=== PATIENT | female | born 1980 | race Caucasian/White ===

== ENCOUNTER 2019-11-04 19:04 | Emergency (ER) | payer OTHER, SELFPAY ==
--- NOTE | ~2019-11-04 | XR_ITS ---
EXAMINATION: XR chest 2V 11/04/2019 20:10 INDICATION: Chest pain PROCEDURE: 2 view chest COMPARISON: No prior studies for comparison. FINDINGS: The lungs are clear. The cardiomediastinal silhouette is within normal limits. There are no pleural effusions. There is no pneumothorax suspected. IMPRESSION: 1: NO ACUTE CARDIOPULMONARY DISEASE. Reviewed, dictated and finalized at location A.
[2019-11-04 19:16] VITALS: BP 116/71; PULSE 63; RESP 14; TEMP 36.6; O2SAT 100
--- NOTE | 2019-11-04 19:26 | ECG_ITS ---
Measurements Intervals [place] Rate: 60 P: 77 ME: 153 QRS: 72 QRSD: 89 T: 67 QT: 407 QTc: 408 Interpretive Statements SINUS RHYTHM BASELINE ARTIFACT- I, III NORMAL ECG Electronically Signed On 11-04-2019 19:59:47 CDT by Marv Mendez D.O.
[2019-11-04 19:38] LABS: Basophils Absolute Auto 0.1 K/mm3 (0.0-0.1); Eosinophils Absolute Auto 0.1 K/mm3 (0-0.3); Hematocrit 38.9 % (37.0-47.0); Hemoglobin 13.2 g/dL (12.0-15.0); Lymphocytes Absolute Auto 1.92 K/mm3 (0.9-3.2); Lymphocytes Percent Auto 38.1 % (18.3-44.2); Mean Corpuscular HGB Conc 33.9 g/dl (32-36); Mean Corpuscular Hemoglobin 30.4 pg (26-34); Mean Corpuscular Volume 89.6 fl (80-100); Mean Platelet Volume 11.2 fl (7.4-10.4); Monocytes Absolute Auto 0.5 K/mm3 (0.1-0.6); Monocytes Percent Auto 9.1 % (2.6-8.5); Neutrophils Absolute Auto 2.5 K/mm3 (1.3-6.7); Neutrophils Percent Auto 49.8 % (45.5-73.1); Platelet Count Result 166 k/mm3 (150-375); Red Blood Count 4.34 M/mm3 (4.2-5.4); Red Cell Distribution Width 12.3 % (11.5-14.5)
[2019-11-04 19:48] LABS: Prothrombin Time 12.9 Seconds (11.1-14.7)
[2019-11-04 19:49] LABS: Partial Thromboplastin Time 31.1 SECONDS (22.3-36.8)
[2019-11-04 19:50] LABS: Blood Urea Nitrogen 23 mg/dL (7-17); Calcium 9.6 mg/dL (8.4-10.2); Carbon Dioxide 27 mmol/L (22-30); Chloride 103 mmol/L (98-107); Estimated CRCL calculation 94 ml/min; Estimated Glomerular Filt Rate > 60; Glucose 91 mg/dL (65-105); Potassium 3.8 mmol/L (3.4-5.0); Sodium 138 mmol/L (137-145)
[2019-11-04 20:02] LABS: Troponin I < 0.012 ng/mL (0.000-0.034)
[2019-11-04 21:15] VITALS: BP 114/70; PULSE 60; RESP 14; O2SAT 100
--- NOTE | 2019-11-04 21:39 | ED.CHESTPAIN ---
HPI - Chest Pain General Chief Complaint: Chest Pain Stated Complaint: sob, cp Time Seen by Provider: 11/04/19 21:32 History of Present Illness HPI narrative: Patient is a 38-year-old female who presents ER with chest pain. Reports she had worked out today and had been feeling fine. She did some upper body lifting. She then was sitting at home watching her daughter play in the [employer] when she felt a little gaseous and decided to belch. As she belched she developed some central chest pain. Is been intermittent. Occasionally with deep breath. No exertional component. She has no dyspnea/nausea/vomiting/diaphoresis. No coronary history. Has history of anxiety and she became concerned that something more serious was occurring. Has history of bloating issues and GERD. Not currently treated for either. Related Data Allergies Allergy/AdvReac Type Severity Reaction Status Date / Time No Known Allergies Allergy Verified 11/04/19 21:09 Review of Systems Review of Systems: All systems reviewed & are unremarkable except as noted in HPI and below Constitutional: Constitutional: Denies fatigue, Denies fever(s) and Denies weakness ENT: Denies nasal congestion and Denies sore throat PMFSH Past Medical History Medical History (Updated 11/04/19 @ 21:45 by Adis Dahl MD) Anxiety GERD (gastroesophageal reflux disease) Surgical History Surgical History (Updated 11/04/19 @ 21:41 by Adis Dahl MD) No pertinent past surgical history Social History Social History (Updated 11/04/19 @ 21:41 by Adis Dahl MD) Smoking status: Never smoker Exam Narrative: Exam Narrative: GENERAL: Well-appearing, well-nourished, and in no acute distress. HEAD: Normocephalic, atraumatic. CHEST: Clear to auscultation. No respiratory distress. No reproducible chest wall tenderness with palpation however patient to have brief discomfort with 1 deep breath. HEART: Regular rate and rhythm. Normal peripheral pulses. ABDOMEN: Soft, nontender, nondistended. EXTREMITIES: Normal range of motion. No edema. SKIN: Warm, dry, no rash. NEURO: Alert and oriented x3. Course Course Emergency Course: Patient informed of results. Recommend treatment with anti-inflammatories and also some acid reflux medication given her recent bloating. ACS felt to be extremely unlikely. PE also felt to be unlikely given the fact this discomfort occurred with belching and her PERC score 0. Vital Signs Vital signs: Vital Signs Temperature 97.9 F 11/04/19 19:16 Pulse Rate 63 11/04/19 19:16 Respiratory Rate 14 11/04/19 19:16 Blood Pressure 116/71 11/04/19 19:16 Pulse Oximetry 100 11/04/19 19:16 Temperature 97.9 F 11/04/19 19:16 Pulse Rate 60 11/04/19 21:15 Respiratory Rate 14 11/04/19 21:15 Blood Pressure 114/70 11/04/19 21:15 Pulse Oximetry 100 11/04/19 21:15 MDM - Chest Pain Lab Data Result diagrams: 11/04/19 19:31 11/04/19 19:31 Labs: Lab Results 11/04/19 11/04/19 11/04/19 Range/Units 19:31 19:31 19:31 WBC 5.0 (4.5-10.0) K/mm3 RBC 4.34 (4.2-5.4) M/mm3 Hgb 13.2 (12.0-15.0) g/dL Hct 38.9 (37.0-47.0) % MCV 89.6 (80-100) fl MCH 30.4 (26-34) pg MCHC 33.9 (32-36) g/dl RDW 12.3 (11.5-14.5) % Plt Count 166 (150-375) k/mm3 MPV 11.2 H (7.4-10.4) fl Immature Gran % (Auto) 0.0 (0-0.5) % Neut % (Auto) 49.8 (45.5-73.1) % Lymph % (Auto) 38.1 (18.3-44.2) % [place] % (Auto) 9.1 H (2.6-8.5) % Eos % (Auto) 2.0 (0-4.4) % Baso % (Auto) 1.0 (0.2-1.2) % Lymph # (Auto) 1.92 (0.9-3.2) K/mm3 [place] # (Auto) 0.5 (0.1-0.6) K/mm3 Eos # (Auto) 0.1 (0-0.3) K/mm3 Baso # (Auto) 0.1 (0.0-0.1) K/mm3 Abs Immat Gran (auto) 0.00 (0.00-0.031) K/mm3 Absolute Neuts (auto) 2.5 (1.3-6.7) K/mm3 Absolute Nucleated RBC 0.0 (0.0-0.012) K/mm3 Nucleated RBC % 0.0 (0.0-0.2) % PT 12.9 (11.1-
[2019-11-04 22:15] VITALS: BP 118/70; PULSE 62; RESP 14; O2SAT 100
== END 2019-11-04 22:15 | disposition home or self-care (01) ==
PROVIDERS: Emergency Medicine; Emergency Provider Emergency Medicine; PCP Internal Medicine
DX: R07.89 Other chest pain (principal); R14.0 Abdominal distension (gaseous)
CPT/HCPCS: 36415; 71046; 80048; 84484; 85025; 85610; 85730; 93005; 99284

== ENCOUNTER → 2022-03-26 13:35 | Outpatient (CLI) | payer BC, SELFPAY ==
--- NOTE | ~2022-03-26 | XR_ITS ---
EXAMINATION: XR chest 2V 03/26/2022 13:51 INDICATION: Cough PROCEDURE: 2 view chest COMPARISON: 11/04/2019 FINDINGS: The lungs are clear. The cardiomediastinal silhouette is within normal limits. There are no pleural effusions. There is no pneumothorax suspected. IMPRESSION: 1: NO ACUTE CARDIOPULMONARY DISEASE. Reviewed, dictated and finalized at location A. 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
== END ==
PROVIDERS: PCP Internal Medicine; Visit Provider Internal Medicine
DX: R05.9 Cough, unspecified (principal)
CPT/HCPCS: 71046

== ENCOUNTER 2023-04-27 18:29 | Emergency (ER) | payer BC, SELFPAY ==
--- NOTE | ~2023-04-27 | XR_ITS ---
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 RESULT: Lines, tubes, and devices: None. Lungs and pleura: Clear. Cardiomediastinal silhouette: Stable. Other: No acute osseous or upper abdominal finding. IMPRESSION: No acute cardiopulmonary process. Reviewed, dictated and finalized at location K. HNUT BATTER MIXER
--- NOTE | 2023-04-27 18:31 | ECG_ITS ---
Measurements Intervals [place] Rate: 77 P: 79 CT: 136 QRS: 71 QRSD: 90 T: 76 QT: 376 QTc: 427 Interpretive Statements SINUS RHYTHM BASELINE ARTIFACT- I, II, AVR NORMAL ECG COMPARED TO ECG 11/04/2019 19:26:26 NO SIGNIFICANT CHANGES Electronically Signed On 04-28-2023 8:08:07 RECEIVER by Marv Mendez D.O.
[2023-04-27 18:37] VITALS: BP 118/69; PULSE 77; RESP 18; TEMP 36.5; O2SAT 100
[2023-04-27 19:29] LABS: Basophils Absolute Auto 0.1 K/mm3 (0.0-0.1); Basophils Percent Auto 0.9 % (0.2-1.2); Eosinophils Absolute Auto 0.2 K/mm3 (0-0.3); Hematocrit 37.9 % (37.0-47.0); Hemoglobin 12.1 g/dL (12.0-15.0); Immature Granulocyte Absolute 0.01 K/mm3 (0.00-0.031); Immature Granulocyte Percent A 0.2 % (0-0.5); Lymphocytes Absolute Auto 1.76 K/mm3 (0.9-3.2); Lymphocytes Percent Auto 31.8 % (18.3-44.2); Mean Corpuscular HGB Conc 31.9 g/dl (32-36); Mean Corpuscular Hemoglobin 29.3 pg (26-34); Mean Corpuscular Volume 91.8 fl (80-100); Mean Platelet Volume 10.7 fl (7.4-10.4); Monocytes Absolute Auto 0.4 K/mm3 (0.1-0.6); Monocytes Percent Auto 7.2 % (2.6-8.5); Neutrophils Absolute Auto 3.1 K/mm3 (1.3-6.7); Neutrophils Percent Auto 55.9 % (45.5-73.1); Platelet Count Result 172 k/mm3 (150-375); Red Blood Count 4.13 M/mm3 (4.2-5.4); Red Cell Distribution Width 12.5 % (11.5-14.5); White Blood Count 5.5 K/mm3 (4.5-10.0)
[2023-04-27 19:39] LABS: Alanine Aminotransferase 21 U/L (6-35); Albumin Level 4.2 g/dL (3.5-5.1); Alkaline Phosphatase 79 U/L (38-126); Anion Gap 5 mmol/L (8-16); Aspartate Amino Transferase 32 U/L (14-36); Bilirubin,Total 0.3 mg/dL (0.2-1.3); Blood Urea Nitrogen 13 mg/dL (7-17); Calcium 9.1 mg/dL (8.4-10.2); Carbon Dioxide 30 mmol/L (22-30); Chloride 104 mmol/L (98-107); Estimated CRCL calculation 90 ml/min; Estimated Glomerular Filt Rate > 60; Glucose 86 mg/dL (65-110); INR 0.9; Lipase 112 U/L (23-300); Potassium 4.7 mmol/L (3.4-5.0); Sodium 139 mmol/L (137-145)
[2023-04-27 19:51] LABS: Troponin I < 0.012 ng/mL (0.000-0.034)
[2023-04-27] MEDS: FAMOTIDINE 20 MG/2 ML VIAL IV PUSH (20:05)
[2023-04-27] MEDS: KETOROLAC 15 MG/ML VIAL (*BKC) IV PUSH (20:05)
--- NOTE | 2023-04-27 20:32 | ED.GENADULT ---
HPI - General Adult General Chief complaint: Chest Pain Stated complaint: epigastric Time Seen by Provider: 04/27/23 19:07 History of Present Illness HPI narrative: This is a 42-year-old female presenting ED with chief complaint of chest pain. When further questioned bili is epigastric pain. She describes as a pressure, that is nonradiating to 10 intensity and constant goes. She has had this in the past has been evaluated by mortgage underwriter no concern for cardiac etiology. She came in today because in addition to her typical chest pressure she also developed a sharp pain in the right upper quadrant. It comes and goes without primary sent. It is associated with some nausea but no vomiting. No fevers chills difficulty breathing or diarrhea. She notes she is constipated. Patient has significant history of GI discomfort, and small-bowel overgrowth, H pylori infection and constipation. Related Data Home Medications Medication Instructions Recorded Confirmed sertraline 25 mg tablet (Zoloft) 25 mg PO DAILY 07/25/21 06/19/22 Allergies Allergy/AdvReac Type Severity Reaction Status Date / Time amoxicillin Allergy Intermediate rash Verified 08/14/22 14:18 [facility] Past Medical History Medical History Anxiety Depression Deviated septum repaired GERD (gastroesophageal reflux disease) Nausea and vomiting RUQ abdominal pain Thyroid disease Surgical History Surgical History Delivery by section (05/24/14) primary c/s placenta previa History of tonsillectomy No pertinent past surgical history Family History Family History Grandparent Hypertension maternal grandmother Acute myocardial infarction maternal grandfather Social History Social History Smoking status: Never smoker Alcohol intake: current Alcohol use details: socially Substance use: never Substance use type: does not use Living arrangements: other Additional living arrangements comments: Occupation/Education: occupation 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 Head: atraumatic. EYES: EOMI, NOSE: Atraumatic NECK: Trachea midline RESPIRATORY: No increased rate of breathing, CTAB CARDIOVASCULAR: RRR, ABDOMINAL: soft nontender no guarding or rebound, no CVA tenderness MUSCULOSKELETAl: No obvious deformities NEURO: Alert. Moving 4/4 extremities SKIN:: Warm, dry. Normal color PSYCHIATRIC: Normal affect Course Vital Signs Vital signs: Vital Signs Temperature 97.7 F 04/27/23 18:37 Pulse Rate 77 04/27/23 18:37 Respiratory Rate 18 04/27/23 18:37 Blood Pressure 118/69 04/27/23 18:37 Pulse Oximetry 100 04/27/23 18:37 Oxygen Delivery Room Air 04/27/23 18:37 Temperature 97.7 F 04/27/23 18:37 Pulse Rate 68 04/27/23 21:38 Respiratory Rate 16 04/27/23 21:38 Blood Pressure 108/64 04/27/23 21:38 Pulse Oximetry 99 04/27/23 21:38 Oxygen Delivery Room Air 04/27/23 18:37 Medical Decision Making MDM Narrative Medical decision making narrative: -Course: this is a 42-year-old female presenting some epigastric discomfort and right upper quadrant pain. Laboratory studies within normal limits. EKG and chest x-ray unremarkable. Patient improved with Pepcid and Toradol and Maalox. On re-evaluation vital signs are stable, abdominal exam is benign. Patient is comfortable following up with her primary care physician for further management. -DDX includes but is not limited to: Gastritis, GERD, biliary pathology, pleuritis, PE, pneumonia, IBS -Co-morbidities co
[2023-04-27 21:38] VITALS: BP 108/64; PULSE 68; RESP 16; O2SAT 99
[2023-04-27 23:06] LABS: Troponin I < 0.012 ng/mL (0.000-0.034)
== END 2023-04-28 | disposition home or self-care (01) ==
PROVIDERS: Emergency Medicine; Emergency Provider Emergency Medicine; PCP Internal Medicine
DX: R10.13 Epigastric pain (principal); F41.9 Anxiety disorder, unspecified; F32.A Depression, unspecified; K21.9 Gastro-esophageal reflux disease without esophagitis
CPT/HCPCS: 36415; 71046; 80053; 83690; 84484; 85025; 85610; 85730; 93005; 96374; 96375; 99284; J1885

== ENCOUNTER 2023-07-26 02:09 | Emergency (ER) | payer BC, SELFPAY ==
[2023-07-26] VITALS (10 sets, daily range): BP systolic 102–116; BP diastolic 58–73; PULSE 66–85; RESP 11–19; TEMP 36.6–36.8; O2SAT 99–100
--- NOTE | ~2023-07-26 | XR_ITS ---
XR chest 1V portable DATE: 07/26/2023 06:08 INDICATION: Chest pain TECHNIQUE: Portable AP chest on 07/26/2023 0547 hours COMPARISON: 04/27/2023 PA and lateral chest FINDINGS: Normal heart size. No hilar or mediastinal enlargement. No pulmonary infiltrate or consolid ation, pleural effusion or pulmonary vascular congestion or pneumothorax is detected. IMPRESSION: No active cardiopulmonary disease Reviewed, dictated and finalized at location A.
--- NOTE | 2023-07-26 02:12 | ECG_ITS ---
Measurements Intervals [place] Rate: 85 P: 77 AL: 112 QRS: 77 QRSD: 88 T: 70 QT: 358 QTc: 426 Interpretive Statements SINUS RHYTHM WITH SHORT AL INTERVAL BORDERLINE ECG COMPARED TO ECG 04/27/2023 18:34:38 NO SIGNIFICANT CHANGES Electronically Signed On 07-26-2023 7:33:55 CDT by Marv Mendez D.O.
[2023-07-26] MEDS: ASPIRIN 81 MG CHEWABLE TABLET 324 MG PO (02:39)
[2023-07-26 02:40] LABS: Basophils Absolute Auto 0.1 K/mm3 (0.0-0.1); Basophils Percent Auto 0.9 % (0.2-1.2); Eosinophils Absolute Auto 0.3 K/mm3 (0-0.3); Eosinophils Percent Auto 6.4 % (0-4.4); Immature Granulocyte Absolute 0.01 K/mm3 (0.00-0.031); Immature Granulocyte Percent A 0.2 % (0-0.5); Lymphocytes Absolute Auto 2.05 K/mm3 (0.9-3.2); Lymphocytes Percent Auto 38.7 % (18.3-44.2); Mean Corpuscular HGB Conc 32.5 g/dl (32-36); Mean Corpuscular Hemoglobin 29.5 pg (26-34); Mean Corpuscular Volume 90.9 fl (80-100); Mean Platelet Volume 11.1 fl (7.4-10.4); Monocytes Absolute Auto 0.4 K/mm3 (0.1-0.6); Monocytes Percent Auto 7.9 % (2.6-8.5); Neutrophils Absolute Auto 2.4 K/mm3 (1.3-6.7); Neutrophils Percent Auto 45.9 % (45.5-73.1); Platelet Count Result 178 k/mm3 (150-375); Red Cell Distribution Width 12.4 % (11.5-14.5); White Blood Count 5.3 K/mm3 (4.5-10.0)
[2023-07-26 02:51] LABS: INR 0.9; Prothrombin Time 12.5 Seconds (11.1-14.7)
[2023-07-26 02:52] LABS: Partial Thromboplastin Time 31.5 Seconds (22.3-36.8)
[2023-07-26 02:53] LABS: Alanine Aminotransferase 16 U/L (6-35); Albumin Level 4.2 g/dL (3.5-5.1); Alkaline Phosphatase 77 U/L (38-126); Anion Gap 6 mmol/L (4-12); Aspartate Amino Transferase 29 U/L (14-36); Bilirubin,Total 0.4 mg/dL (0.2-1.3); Blood Urea Nitrogen 14 mg/dL (7-17); Calcium 9.2 mg/dL (8.4-10.2); Carbon Dioxide 27 mmol/L (22-30); Chloride 107 mmol/L (98-107); Estimated CRCL calculation 104 ml/min; Estimated Glomerular Filt Rate > 60; Glucose 103 mg/dL (65-110); Lipase 106 U/L (23-300); Potassium 3.7 mmol/L (3.4-5.0); Sodium 140 mmol/L (137-145)
[2023-07-26 03:03] LABS: Troponin I < 0.012 ng/mL (0.000-0.034)
--- NOTE | 2023-07-26 03:25 | ED.CHESTPAIN ---
HPI - Chest Pain General Chief Complaint: Chest Pain <Aliya Ramsay MD - Last Filed: 07/27/23 20:18> Stated Complaint: tingling in hand, high hr, chest pain <Aliya Ramsay MD - Last Filed: 07/27/23 20:18> Time Seen by Provider: 07/26/23 03:25 <Aliya Ramsay MD - Last Filed: 07/27/23 20:18> Source: patient <Aliya Ramsay MD - Last Filed: 07/27/23 20:18> Mode of arrival: ambulatory <Aliya Ramsay MD - Last Filed: 07/27/23 20:18> Limitations: no limitations <Aliya Ramsay MD - Last Filed: 07/27/23 20:18> History of Present Illness HPI narrative: 42-year-old [id number] female who presents with acute onset of tingling in her left hand that awoke her out of sleep at approximately 1:45 a.m. this morning. She notes that she was not lying on her left arm at the time pain was instead on her back. She had chest pain and felt hot and sweaty and thought that this might be panic attack as she has had that before but has never had 1 in the middle the night. She noted that her heart rate based on her watch was in the 150s. The intensity of this episode resolved after she got to the emergency department but has continued to occur since although less intense. 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 Denies any lower extremity edema. No hemoptysis. No recent surgery or trauma. No history of PE or DVT. Not on exogenous hormones. She has not taken anything for pain yet. Pain is described as a pressure. No first-degree relative with a myocardial infarction before age 65 although her maternal grandfather did have a myocardial infarction well in his 40s. She has previously seen a jig builder and had to wear a Holter monitor and was told she occasionally experiences some premature beats. Nonsmoker. No diagnosis of hypertension. She does note that she was previously told she had high cholesterol but then this did resolve on subsequent testing. <Aliya Ramsay MD - Last Filed: 07/27/23 20:18> Related Data Home Medications: Home Medications Medication Instructions Recorded Confirmed No Home Medications 07/23/23 07/23/23 <Aliya Ramsay MD - Last Filed: 07/27/23 20:18> Allergies/Adverse Reactions: Allergies Allergy/AdvReac Type Severity Reaction Status Date / Time amoxicillin Allergy Intermediate rash Verified 07/26/23 02:24 <Aliya Ramsay MD - Last Filed: 07/27/23 20:18> [facility] Past Medical History Medical History: Medical History (Updated 07/27/23 @ 00:03 by Franny Charles) Anxiety Depression Deviated septum repaired GERD (gastroesophageal reflux disease) Nausea and vomiting Right hand dominant RUQ abdominal pain Thyroid disease <Aliya Ramsay MD - Last Filed: 07/27/23 20:18> Surgical History Surgical History: Surgical History Delivery by section (05/24/14) primary c/s placenta previa History of tonsillectomy No pertinent past surgical history <Aliya Ramsay MD - Last Filed: 07/27/23 20:18> Family History Family History: Family History (Updated 07/26/23 @ 07:32 by Aliya Ramsay MD) Grandparent Hypertension maternal grandmother Acute myocardial infarction, Onset Age: 40 maternal grandfather <Aliya Ramsay MD - Last Filed: 07/27/23 20:18> Social History Social History: Social History Smoking status: Never smoker Alcohol intake: current Alcohol use details: socially Substance use: never Substance use type: does not use Living arrangements: other Additional living arrangements comments: Occupation/Education: occupation 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
[2023-07-26] MEDS: ACETAMINOPHEN 500 MG TABLET 1000 MG PO (03:49)
[2023-07-26 04:20] LABS: Influenza A QL RT-PCR Negative (Negative); Influenza B QL RT-PCR Negative (Negative); RSV RNA, RT-PCR Negative (Negative); SARS-CoV-2 RNA PCR Negative (Negative)
--- NOTE | 2023-07-26 05:11 | ECG_ITS ---
Measurements Intervals [place] Rate: 65 P: 62 ID: 145 QRS: 72 QRSD: 86 T: 67 QT: 393 QTc: 411 Interpretive Statements SINUS RHYTHM VENTRICULAR PREMATURE COMPLEX BORDERLINE ECG COMPARED TO ECG 07/26/2023 02:15:16 NO SIGNIFICANT CHANGES Electronically Signed On 07-26-2023 7:37:26 CDT by Marv Mendez D.O.
--- NOTE | 2023-07-26 08:45 | ECG_ITS ---
Measurements Intervals [place] Rate: 72 P: 64 SC: 142 QRS: 73 QRSD: 88 T: 68 QT: 393 QTc: 432 Interpretive Statements SINUS RHYTHM MINIMAL Q WAVES- INFERIOR LEADS BORDERLINE ECG COMPARED TO ECG 07/26/2023 05:20:03 NO SIGNIFICANT CHANGES Electronically Signed On 07-26-2023 16:35:51 CDT by Marv Mendez D.O.
[2023-07-26 08:47] LABS: Troponin I < 0.012 ng/mL (0.000-0.034)
--- NOTE | 2023-07-26 09:36 | ED.CHESTPAIN ---
HPI - Chest Pain General Chief Complaint: Chest Pain Stated Complaint: tingling in hand, high hr, chest pain Time Seen by Provider: 07/26/23 03:25 Source: patient Mode of arrival: ambulatory Limitations: no limitations Related Data Home Medications Medication Instructions Recorded Confirmed No Home Medications 07/23/23 07/23/23 Allergies Allergy/AdvReac Type Severity Reaction Status Date / Time amoxicillin Allergy Intermediate rash Verified 07/26/23 02:24 [facility] Past Medical History Medical History (Updated 07/26/23 @ 09:35 by Nidhi Castle MD) Anxiety Depression Deviated septum repaired GERD (gastroesophageal reflux disease) Nausea and vomiting Right hand dominant RUQ abdominal pain Thyroid disease Surgical History Surgical History Delivery by section (05/24/14) primary c/s placenta previa History of tonsillectomy No pertinent past surgical history Family History Family History (Updated 07/26/23 @ 07:32 by Aliya Ramsay MD) Grandparent Hypertension maternal grandmother Acute myocardial infarction, Onset Age: 40 maternal grandfather Social History Social History Smoking status: Never smoker Alcohol intake: current Alcohol use details: socially Substance use: never Substance use type: does not use Living arrangements: other Additional living arrangements comments: Occupation/Education: occupation 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 Gender identity (if verbalized by the patient): Female Sexual Orientation (if Verbalized by the Patient): Straight or Heterosexual Course Vital Signs Vital signs: Vital Signs Temperature 98.2 F 07/26/23 02:17 Pulse Rate 85 07/26/23 02:17 Respiratory Rate 19 07/26/23 02:17 Blood Pressure 115/72 07/26/23 02:17 Pulse Oximetry 100 07/26/23 02:17 Oxygen Delivery Room Air 07/26/23 02:17 Temperature 98.2 F 07/26/23 02:17 Pulse Rate 69 07/26/23 07:26 Respiratory Rate 14 07/26/23 07:26 Blood Pressure 114/67 07/26/23 07:26 Pulse Oximetry 99 07/26/23 07:26 Oxygen Delivery Room Air 07/26/23 02:46 MDM - Chest Pain Lab Data 07/26/23 02:36 07/26/23 02:36 Labs: Lab Results 07/26/23 07/26/23 07/26/23 Range/Units 02:36 03:37 05:27 WBC 5.3 (4.5-10.0) K/mm3 RBC 4.40 (4.2-5.4) M/mm3 Hgb 13.0 (12.0-15.0) g/dL Hct 40.0 (37.0-47.0) % MCV 90.9 (80-100) fl MCH 29.5 (26-34) pg MCHC 32.5 (32-36) g/dl RDW 12.4 (11.5-14.5) % Plt Count 178 (150-375) k/mm3 MPV 11.1 H (7.4-10.4) fl Immature Gran % (Auto) 0.2 (0-0.5) % Neut % (Auto) 45.9 (45.5-73.1) % Lymph % (Auto) 38.7 (18.3-44.2) % [place] % (Auto) 7.9 (2.6-8.5) % Eos % (Auto) 6.4 H (0-4.4) % Baso % (Auto) 0.9 (0.2-1.2) % Lymph # (Auto) 2.05 (0.9-3.2) K/mm3 [place] # (Auto) 0.4 (0.1-0.6) K/mm3 Eos # (Auto) 0.3 (0-0.3) K/mm3 Baso # (Auto) 0.1 (0.0-0.1) K/mm3 Abs Immat Gran (auto) 0.01 (0.00-0.031) K/mm3 Absolute Neuts (auto) 2.4 (1.3-6.7) K/mm3 Absolute Nucleated RBC 0.000 (0.0-0.012) K/mm3 Nucleated RBC % 0.0 (0.0-0.2) % PT 12.5 (11.1-14.7) Seconds INR 0.9 APTT 31.5 (22.3-36.8) Seconds Sodium 140 (137-145) mmol/L Potassium 3.7 (3.4-5.0) mmol/L Chloride 107 (98-107) mmol/L Carbon Dioxide 27 (22-30) mmol/L Anion Gap 6 L (4-12) mmol/L BUN 14 (7-17) mg/dL Creatinine 0.60 L (0.7-1.0) mg/dL Estim Creat Clear Calc 104 ml/min Estimated GFR > 60 (59 - ) Glucose 103 (65-110) mg/dL Calcium 9.2 (8.4-10.2) mg/dL Total Bilirubin 0.4 (0.2-1.3) mg/dL AST 29 (14-36) U/L ALT 16 (6-35) U/L Alkaline Phosphatase 77 (38-126) U/L Troponin I < 0.012 0.020 D (0.000-0.034) ng/m
== END 2023-07-26 09:42 | disposition home or self-care (01) ==
PROVIDERS: Student in an Organized Health Care Education/Training Program; Emergency Provider Emergency Medicine; PCP Internal Medicine
DX: R07.9 Chest pain, unspecified (principal); Z20.822 Contact with and (suspected) exposure to COVID-19
CPT/HCPCS: 36415; 71045; 80053; 83690; 84484; 85025; 85610; 85730; 87637; 93005; 99284; A9270

== ENCOUNTER 2023-07-30 09:50 | Outpatient (CLI) | payer BC, SELFPAY ==
--- NOTE | ~2023-07-30 | US_ITS ---
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 COMPARISON: None. FINDINGS: The right thyroid lobe measures 4.5 x 1.7 x 1.8 cm. The left thyroid lobe measures 4.1 x 1.4 x 1.5 c m. Thyroid isthmus measures 4 mm in thickness. 7 mm anechoic cystic TI RADS 1 nodule in the right thy roid lobe. There is a second 2-3 mm anechoic cystic TI-RADS 1 nodule with peripheral echogenic focus with prominent posterior comet tailing also in the right thyroid lobe. There is normal echotexture, e chogenicity and vascular flow throughout the thyroid gland. IMPRESSION: 1. A couple subcentimeter likely benign TI RADS 1 cystic right thyroid nodules. Recommend clinical fo llowup with repeat imaging if there are changes on physical exam. Reviewed, dictated and finalized at location A. IMPRESSION: 1. A couple subcentimeter likely benign TI RADS 1 cystic right thyroid nodules. Recommend clinical followup with repeat imaging if there are changes on physic al exam.
== END 2023-07-30 09:51 ==
PROVIDERS: PCP Internal Medicine Endocrinology, Diabetes & Metabolism; Visit Provider Internal Medicine Endocrinology, Diabetes & Metabolism
DX: E04.9 Nontoxic goiter, unspecified (principal)
CPT/HCPCS: 76536

== ENCOUNTER 2024-01-28 10:51 | Outpatient (CLI) | payer BC, SELFPAY ==
--- NOTE | ~2024-01-28 | US_ITS ---
EXAMINATION: US thyroid DATE: 01/28/2024 11:17 INDICATION: Nontoxic goiter. TECHNIQUE: Multiple ultrasound images of the thyroid were obtained. COMPARISON: Ultrasound 07/30/2023 FINDINGS: The right thyroid lobe measures 4.6 x 1.7 x 1.7 cm. The left thyroid lobe measures 4.4 x 1.5 x 1.6 c m. In the left thyroid lobe, there is a 7 mm solid, very hypoechoic, wider than tall nodule with smo oth margin without echogenic foci (TI-RADS TR4). In the right thyroid lobe, there is a 4 mm nodule. IMPRESSION: 1. Small thyroid nodules, likely not clinically significant. No follow-up is needed. Reviewed, dictated and finalized at location A. IMPRESSION: 1. Small thyroid nodules, likely not clinically significant. No follow-up is ne eded.
== END 2024-01-28 10:52 | disposition home or self-care (01) ==
PROVIDERS: PCP Internal Medicine Endocrinology, Diabetes & Metabolism; Visit Provider Internal Medicine Endocrinology, Diabetes & Metabolism
DX: E04.2 Nontoxic multinodular goiter (principal)
CPT/HCPCS: 76536

== ENCOUNTER 2024-02-25 10:42 | Outpatient (CLI) | payer BC, SELFPAY ==
--- NOTE | ~2024-02-25 | MR_ITS ---
EXAMINATION: MR brain/brain stem wo/w con DATE: 02/25/2024 11:37 INDICATION: Irregular menstruation, unspecified. TECHNIQUE: Magnetic resonance imaging (MRI) of the brain and brainstem was performed without and with 15 mL MultiHance intravenous contrast. COMPARISON: None. FINDINGS: The pituitary is normal in size with height of 6 mm and concave superior margin. The infund ibulum is at the midline. There is no intracranial hemorrhage, acute infarction, or abnormal intracra nial mass lesion. The ventricles are normal in size. The paranasal sinuses are clear. The orbits are normal. The mastoid air cells are normal. IMPRESSION: 1. Normal brain. Normal pituitary. Reviewed, dictated and finalized at location B.
== END 2024-02-25 10:43 | disposition home or self-care (01) ==
LOC: MICIMG 10:43
PROVIDERS: PCP Internal Medicine Endocrinology, Diabetes & Metabolism; Visit Provider Internal Medicine Endocrinology, Diabetes & Metabolism
DX: N92.6 Irregular menstruation, unspecified (principal)
CPT/HCPCS: 70553; A9577

== ENCOUNTER 2024-07-21 11:01 | Outpatient (CLI) | payer BC, SELFPAY ==
--- NOTE | ~2024-07-21 | CT_ITS ---
EXAMINATION: CT abdomen wo con DATE: 07/21/2024 11:22 INDICATION: Disorder of adrenal gland with high cortisol level TECHNIQUE: Computed tomography (CT) of the abdomen was performed without intravenous contrast. Automa michelle exposure control and iterative reconstruction technique were employed. The dose-length product wa s 426.30 mGy-cm. COMPARISON: None FINDINGS: Lung bases are clear. Heart size is normal. No pericardial or pleural effusion. Liver, decompressed g allbladder, spleen, pancreas, bilateral adrenal glands and kidneys are normal. Visualized portions of bowels are normal with no obstruction. No pathologically enlarged abdominal lymphadenopathy. Mild arley mbar and lower thoracic spondylosis. IMPRESSION: 1. Unremarkable noncontrast CT of the abdomen with normal adrenal glands. Reviewed, dictated and finalized at location B.
== END 2024-07-21 11:02 | disposition home or self-care (01) ==
LOC: MICIMG 11:02
PROVIDERS: PCP Internal Medicine Endocrinology, Diabetes & Metabolism; Visit Provider Internal Medicine Endocrinology, Diabetes & Metabolism
DX: E27.8 Other specified disorders of adrenal gland (principal)
CPT/HCPCS: 74150

== ENCOUNTER 2024-08-18 09:28 | Outpatient (CLI) | payer BC, SELFPAY ==
--- OUTSIDE RECORDS SUMMARY | 2024-08-18 10:25 | XMS_ITS | Encounter Summary ---
Author Organization [employer] Address 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
--- OUTSIDE RECORDS SUMMARY | 2024-08-18 10:25 | XMS_ITS | Encounter Summary ---
Author Organization [facility] Address [address] [place] [address] Care Team Providers Care Parking Line Painter Name Role Phone Adis Mcdermott MD Primary Care Provider [phone] Encounter Details Date Type Department Care Team (Late st Contact Info) Description 12/28/2002 Outpatient Historical [facility] Internal Medicine [address] [address] Shaheen Stokes MD [address] [place] [address] [phone] Social History Tobacco Use Types Packs/Day Years Used Date Smoking Tobacco: Never Assessed Comments Unknown Sex and Gender Information Value Date Recorded Sex Assigned at Not on file Legal 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 Gender Identity Not on file Sexual Orientation Not on file documented as of this encounter Last Filed Vital Signs Vital Sign Reading Time Taken Comments Blood Pressure 110/70 12/28/2002 3:30 PM CDT Pulse - - Temperature - - Respiratory Rate - - Oxygen Saturation - - Inhaled Oxygen Concentration - - Weight 73 kg (161 lb) 12/28/2002 3:30 PM CDT Height - - Body Mass Index - - documented in this encounter Plan of Treatment Not on file documented as of this encounter Visit Diagnoses Not on filedocumented in this encounter Care Teams Parking Line Painter Relationship Specialty Start Date End Date Adis Mcdermott MD PCP - General Internal Medicine 07/08/14 documented as of this encounter
--- OUTSIDE RECORDS SUMMARY | 2024-08-18 10:25 | XMS_ITS | Encounter Summary ---
Author Organization [email or web address] Address 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
--- OUTSIDE RECORDS SUMMARY | 2024-08-18 10:25 | XMS_ITS | Encounter Summary ---
Author Organization [facility] Address [address] [place] [address] Care Team Providers Care Tool Tender Name Role Phone Adis Mcdermott MD Primary Care Provider [phone] Encounter Details Date Type Department Care Team (Late st Contact Info) Description 02/20/2004 Outpatient Historical [facility] Internal Medicine [address] [address] Shaheen Stokes MD [address] [place] [address] [phone] Social History Tobacco Use Types Packs/Day Years Used Date Smoking Tobacco: Never Assessed Comments Unknown Sex and Gender Information Value Date Recorded Sex Assigned at Not on file 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 Gender Identity Not on file Sexual Orientation Not on file documented as of this encounter Last Filed Vital Signs Vital Sign Reading Time Taken Comments Blood Pressure 110/68 02/20/2004 11:00 AM CDT Pulse - - Temperature 36.5 C (97.7 F) 02/20/2004 11:00 AM CDT Respiratory Rate - - Oxygen Saturation - - Inhaled Oxygen Concentration - - Weight 70.8 kg (156 lb) 02/20/2004 11:00 AM CDT Height - - Body Mass Index - - documented in this encounter Plan of Treatment Not on file documented as of this encounter Visit Diagnoses Not on filedocumented in this encounter Care Teams Tool Tender Relationship Specialty Start Date End Date Adis Mcdermott MD PCP - General Internal Medicine 07/08/14 documented as of this encounter
--- OUTSIDE RECORDS SUMMARY | 2024-08-18 10:25 | XMS_ITS | Encounter Summary ---
Author Organization [facility] Address [address] [place] [address] Care Team Providers Care Clinician Oncology Name Role Phone Adis Mcdermott MD Primary Care Provider [phone] Encounter Details Date Type Department Care Team (Late st Contact Info) Description 02/14/2003 Outpatient Historical [facility] Internal Medicine [address] [address] Shaheen Stokes MD [address] [place] [address] [phone] Social History Tobacco Use Types Packs/Day Years Used Date Smoking Tobacco: Never Assessed Comments Unknown Sex and Gender Information Value Date Recorded Sex Assigned at Not on file Legal 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 Gender Identity Not on file Sexual Orientation Not on file documented as of this encounter Last Filed Vital Signs Vital Sign Reading Time Taken Comments Blood Pressure 110/60 02/14/2003 3:00 PM CDT Pulse - - Temperature - - Respiratory Rate - - Oxygen Saturation - - Inhaled Oxygen Concentration - - Weight 73.5 kg (162 lb) 02/14/2003 3:00 PM CDT Height - - Body Mass Index - - documented in this encounter Plan of Treatment Not on file documented as of this encounter Visit Diagnoses Not on filedocumented in this encounter Care Teams Clinician Oncology Relationship Specialty Start Date End Date Adis Mcdermott MD PCP - General Internal Medicine 07/08/14 documented as of this encounter
--- OUTSIDE RECORDS SUMMARY | 2024-08-18 10:25 | XMS_ITS | Clinical Summary ---
Author Organization [address] Address [address] [place] [id number] Care Team Providers Care Handle Assembler Name Role Phone Adis Mcdermott MD Primary Care Provider + Allergies Active Allergy Reactions Criticality Noted Date Comments Amoxicillin-Pot Clavulanate Rash Medium 08/28/19 23 Medications sertraline (ZOLOFT) 25 mg tablet Take 1 tablet (25 mg total) by mouth daily Active cyanocobalamin (Vitamin B-12) 1,000 mcg/mL injection Active ALPRAZolam (XANAX) 0.25 mg tablet Take 1 tablet (0.25 mg total) by mouth nightly as needed for anxiety Active Active Problems Problem Noted Date Diagnosed Date Anxiety 08/01/2023 Recurrent chest pain 08/01/2023 Lipid screening 08/01/2023 Palpitations 08/01/2023 Surgical History Surgery Date Site/Laterality Comments SECTION 05-24-14 Medical History Medical History Date Comments Chest pain Anxiety Depression Family History Medical History Relation Name Comments Learning disabilities Brother Young Mitral valve prolapse Father Coronary artery disease Maternal Grandfather Brittany Guevara Heart attack Maternal Grandfather Brittany Guevara Heart disease Maternal Grandfather Brittany Guevara Cancer Maternal Grandmother Brittany guevara Hypertension Maternal Grandmother Brittany guevara No Known Problems Mother Alcohol abuse Mother's Brother Delmar Cardiomyopathy Paternal Grandmother Emperatriz Depression Paternal Grandmother Emperatriz Mental illness Paternal Grandmother Emperatriz Relation Name Status Comments Brother Young Father Alive Maternal Grandfather Brittany Guevara Maternal Grandmother Brittany guevara Mother Alive Mother's Brother Delmar Paternal Grandmother Emperatriz Social History Tobacco Use Types Packs/Day Years Used Date Smoking Tobacco: Never Smokeless Tobacco: Never Tobacco Cessation:Counseling Given: Not Answered AUDIT-C Answer Date Recorded Q1: How often do you have a drink containing alc ohol? Monthly or less 04/07/2024 Q2: How many drinks containi ng alcohol do you have on a typical day when you are drinking? 1 or 2 04/07/2024 Q3: How often do you have si x or more drinks on one occasion? Less than monthly 04/07/2024 Comments Unknown Sex and Gender Information Value Date Recorded Sex Assigned at Not on file Legal Sex Female 6:44 AM CDT Gender Identity Female 08/27/2022 6:49 AM CDT Sexual Orientation Straight 08/27/2022 6: 49 AM CDT Obstetrics History Last Filed Vital Signs Vital Sign Reading Time Taken Comments Blood Pressure 113/70 04/07/2024 9:55 AM EDGE MOLDER Pulse 63 04/07/2024 9:55 AM EDGE MOLDER Temperature 37.2 C (99 F) 08/27/2022 5:05 PM CDT Respiratory Rate 18 04/07/2024 9:55 AM EDGE MOLDER Oxygen Saturation 98% 12/19/2023 3:26 PM CDT Inhaled Oxygen Concentration - - Weight 82.2 kg (181 lb 4.8 oz) 04/07/2024 9:55 A M EDGE MOLDER Height 172.7 cm (5' 8 ) 04/07/2024 9:55 AM EDGE MOLDER Body Mass Index 27.57 04/07/2024 9:55 AM EDGE MOLDER Plan of Treatment Health Maintenance Due Date Last Done Comments Cervical Cancer Screening 1979 Depression Screening 1979 Hepatitis C Screening 1979 Varicella Vaccines (1 of 2 - 13+ 2-dose series) 11/27/1992 Regular Well Visit/Exam 18-64 11/27/1997 Pneumococcal vaccine <65 (2 of 2 - PCV) 07/18/2022 07/18/2021, 08/24/2018, 03/04/2006 Breast Cancer Screening-Mammogram 04/30/2024 04/30/2023, 04/30/2023, 01/23/2022 Influenza Vaccine (Season Ended) 2024 05/23/2021, 02/15/2020, 02/15/2019, Additional history exists DTaP/Tdap/Td Vaccine (4 - Td or Tdap) 04/12/2027 04/12/2017, 03/21/2014, 11/10/2008, Additional history exists Hepatitis B Screening Completed 06/06/2022, 022 HPV Vaccines Aged Out No longer eligi ble based on patient's age to complete this topic Insurance [employer] OOS [employer] OOS [employer]ESS OOS Care Teams Handle Assembler Relationship Specialty Start Date End Date Adis Mcdermott MD PCP - General Internal Medicine 08/27/22
--- OUTSIDE RECORDS SUMMARY | 2024-08-18 10:25 | XMS_ITS | CONTINUITY OF CARE DOCUMENT ---
Author Name pascual garner Address Unknown Organization [facility] Address [address] [place] [address] Phone [phone] Care Team Providers Care Caustics Loader Name Role Phone Umang BLAKELY, Summer Unavailable [phone] Summer Heck MD Unavailable [phone] PROBLEMS Condition Status Date Provider Notes Migraines active Naun Faustin Cardiology examination active Naun Faustin Syncope active Summer Heck MD Leg pain, bilateral active Summer Heck MD Chest discomfor--stress test and echo normal from [facility], 05/2024 active Naun Faustin 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 Summer Heck MD Dyspnea on exertion active Naun Faustin HTN borderline active Jose E Fabian MD Sleep apnea severe - unable to tolerate CPAP active Summer Heck MD BACK PAIN;CHRONIC active Jose E Fabian MD Screening completed - Summer Heck MD Vasovagal syncope completed - Summer Heck MD Shortness of breath completed - Jose E Fabian MD Morbid obesity active Summer Heck MD Palpitations active Jose E Fabian MD neg ts h ARTHRITIS active Summer Heck MD Syncope completed - Summer Heck MD Family History of Sudden Cardiac : completed - Jose E Fabian MD Family History of Hypertension: completed - Jose E Fabian MD ENCOUNTERS Date Type Provider Location Encounter Diag nosis - In-person encounter Office Visit Summer Heck MD [facility] Dyspnea on exertionC hest discomfor--stress test and echo normal from [facility], ardiology examinationMigraines - In-person encounter Office Visit Summer Heck MD [facility] Dyspnea on exertion - In-person encounter Office Visit Summer Heck MD [facility] Vasovagal syncopeScreeningSleep apnea severe - unable to tolerate CPAPSyncope - In-person encounter Office Visit Summer Heck MD [facility] - In-person encounter Office Visit Summer Heck MD [facility] - In-person encounter Office Visit Summer Heck MD [facility] Sleep apnea severe - unable to tolerate CPAPDyspnea on exertion - In-person encounter Office Visit Summer Heck MD [facility] Leg pain, bilateral - In-person encounter Office Visit Summer Heck MD [facility] - In-person encounter Office Visit Summer Heck MD [facility] - In-person encounter Office Visit Summer Heck MD [facility] - In-person encounter Office Visit Summer Heck MD [facility] COPD mild obst on pftsChest discomfor--stress test and echo normal from [facility], 05/2024 - In-person encounter Office Visit Jose E Fabian MD [facility] Family History of Hypertension:Family History of Sudden Cardiac :PalpitationsShortness of breathBACK PAIN;CHRONICSleep apnea severe - unable to tolerate CPAPHTN borderline - In-person encounter Office Visit Summer Heck MD [facility] Syncope - In-person encounter Office Visit Summer Heck MD [facility] ARTHRITISMorbid obes ity VITAL SIGNS Date Observation Value Provider Body Mass Index (Ratio) 42.93 kg/m2 Fidel Heck MD blood pressure, diastolic 98 mm[Hg] Li nkLogic blood pressure, systolic 128 mm[Hg] Angi kLogic weight E&M 266 [lb_av] Elly Saunder s pulse rate 82 /min Elly Saunder s oxygen saturation, oximetry 100 % Elly Gregory blood pressure, diastolic 98 mm[Hg] Ti phong Gregory blood pressure, systolic 128 mm[Hg] Tif shelly Gregory blood pressure, cuff size regular Ti phong Gregory height E&M 66 [in_i] Elly Grijalvaer s Body Mass Index (Ratio) 47.45 kg/m2 Fidel Heck MD blood pressure, diastolic 107 mm[Hg] Ri az Roxie blood pressure, systolic 145 mm[Hg] Valencia z Roxie oxygen saturation, oximetry 97 % Mariah Isbell weight E&M 294 [lb_av] Mariah Isbell blood pressure, cuff size large Corine Isbell height E&M 66 [in_i] Mariah Isbell Body Mass Index (Ratio) 48.09 kg/m2 Fidel Heck MD pulse rate 96 /min Wanda Camargo oxygen saturation, oximetry 97 % Wanda Camargo respiratory rate E&M 16 /min Wanda irvin weight E&M 298 [lb_av] Wanda Camargo height E&M 66 [in_i] Wanda Camargo Body Mass Index (Ratio) 47.61 kg/m2 Fidel Heck MD blood pressure, diastolic 115 mm[Hg] Te les Kortney blood pressure, systolic 157 mm[Hg] Ter cristal CamejoSheets weight E&M 295 [lb_av] Arelis Sheets respiratory rate E&M 16 /min Arelis Rosales ranchothu pulse rate 89 /min Arelis Sheets oxygen saturation, oximetry 100 % Arelis Sheets Body Mass Index (Ratio) 46.64 kg/m2 Fidel Heck MD blood pressure, cuff size regular Ke rri Rancho blood pressure, diastolic 82 mm[Hg] Ke rri Rancho blood pressure, systolic 122 mm[Hg] Casa ri Rancho oxygen saturation, oximetry 98 % Brigid Rancho respiratory rate E&M 16 /min Brigid G sivaenefay pulse rate 84 /min Brigid Víctor [facility] weight E&M 289 [lb_av] Brigid Keshae [facility] height E&M 66 [in_i] Brigid Víctor [facility] Body Mass Index (Ratio) 48.03 kg/m2 Fidel Heck MD blood pressure, diastolic 99 mm[Hg] St preethi Zapata blood pressure, systolic 122 mm[Hg] Becki Zapata blood pressure, cuff size large St preethi Zapata weight E&M 297.6 [lb_av] Tori Zapata oxygen saturation, oximetry 98 % oTri Zapata pulse rate 83 /min Tori Zapata respiratory rate E&M 20 /min Tori albarran height E&M 66 [in_i] Tori Zapata Body Mass Index (Ratio) 51.16 kg/m2 Bernard Corbett blood pressure, cuff size regular Av Hooper[place] blood pressure, diastolic 70 mm[Hg] Av fu Robles blood pressure, systolic 110 mm[Hg] Aidee Hooper[place] oxygen saturation, oximetry 98 % Mojgan Hooperby pulse rate 82 /min Mojgan Vinita respiratory rate E&M 18 /min Mojgan [place] weight E&M 317 [lb_av] Mojgan height E&M 66 [in_i] Mojgan Body Mass Index (Ratio) 48.25 kg/m2 Fidel Heck MD blood pressure, diastolic 82 mm[Hg] [facility], systolic 118 mm[Hg] Daniel lawton Fenton oxygen saturation, oximetry 95 % [facility] respiratory rate E&M 16 /min [place] pulse rate 90 /min [facility] 299 [lb_av] [facility] E&M 66 [in_i] [facility] Body Mass Index (Ratio) 45.83 kg/m2 Sophie Fabian MD blood pressure, diastolic 92 mm[Hg] Er jb Mariscal blood pressure, systolic 146 mm[Hg] Amita meredith Mariscal oxygen saturation, oximetry 95 % Sil Mariscal pulse rate 89 /min Sil Kincaid weight E&M 284 [lb_av] Sil El- Sanjiv height E&M 66 [in_i] Sil El- Sanjiv Body Mass Index (Ratio) 41.96 kg/m2 Fidel Heck MD blood pressure, cuff size regular Av Arboleda blood pressure, diastolic 70 mm[Hg] Av Arboleda blood pressure, systolic 116 mm[Hg] Aidee Arboleda oxygen saturation, oximetry 98 % Mojgan Hooper respiratory rate E&M 17 /min Mojgan pulse rate 97 /min Mojgan Hoopre weight E&M 260 [lb_av] Mojgan Hooper height E&M 66 [in_i] Mojgan blood pressure, diastolic 80 mm[Hg] Ca félix Campos blood pressure, systolic 122 mm[Hg] Can adriane Campos Body Mass Index (Ratio) 41.96 kg/m2 Fidel Heck MD blood pressure, diastolic 70 mm[Hg] Av Arboleda blood pressure, systolic 110 mm[Hg] Aidee Arboleda blood pressure, cuff size regular Av Arboleda respiratory rate E&M 17 /min Mojgan Arboleda oxygen saturation, oximetry 98 % Mojgan pulse rate 75 /min Mojgan blood pressure, resting No Betito Arboleda weight E&M 260 [lb_av] Mojgan height E&M 66 [in_i] Mojgan ALLERGIES Allergy Name Onset Date Reaction Criticality Status ALOE VERA High Criticality active RESULTS Date Observation Value Provider Reference Range Interpretation Location 8 pro brain natriuretic peptide 13 pg/mL [facility] 0-130 8 lipoprotein, beta, serum, point, quantitative, calculated 68 mg/dL [facility] 0-99 8 very low density lipoproteins 26 mg/dL [facility] 5-40 8 HDL cholesterol, serum 47 mg/dL [facility] >39 8 triglyceride, serum, random 128 mg/dL [facility] 0-149 8 cholesterol, serum 141 mg/dL [facility] 750-701 3376/12/1 8 alanine aminotransferase (SGPT), serum 14 1/L [facility] 0-32 8 aspartate aminotransferase (SGOT), serum 15 1/L [facility] 0-40 8 alkaline phosphatase, serum 67 1/L [facility] 39-117 8 bilirubin, serum, total <0.2 mg/dL [facility] 0.0-1.2 8 albumin/globulin ratio, serum 1.3 [facility] 1.2-2.2 8 globulin, serum 3.1 [facility] 1.5-4.5 8 albumin, serum 4.0 g/dL [facility] 3.5-5.5 8 protein, total, serum 7.1 g/dL [facility] 6.0-8.5 8 calcium, serum 9.3 mg/dL [facility] 8.7-10.2 8 carbon dioxide, venous blood 24 mmol/L [facility] 20-29 8 chloride, serum 105 mmol/L [facility] 96-106 8 potassium, serum 4.2 mmol/L [facility] 3.5-5.2 8 sodium, serum 146 mmol/L [facility] 134-144 High 8 urea nitrogen/creatinine ratio, serum 20 [facility] 9-23 8 eGFR if 107 mL/min/{1 .73_m2} [facility] >59 8 eGFR if not 92 mL/min/{1 .73_m2} [facility] >59 8 creatinine, serum 0.81 mg/dL [facility] 0.57-1.00 8 urea nitrogen, blood 16 mg/dL [facility] 6-20 8 blood glucose, random 90 mg/dL [facility] 65-99 8 prothrombin time (patient) 10.5 s [facility] 9.1-12.0 8 international normalized ratio (INR) 1.0 [facility] 0.8-1.2 8 basophil count, absolute 0.0 x10E3/uL [facility] 0.0-0.2 8 Eosinophil Absolute Count 0.1 X10E3/UL [facility] 0.0-0.4 8 monocyte count, blood, automated 0.3 X10E3/UL [facility] 0.1-0.9 8 lymphocyte count, blood, automated 2.9 X10E3/UL [facility] 0.7-3.1 8 Absolute Neutrophils 2.9 X10E3/UL [facility] 1.4-7.0 8 basophils as percent of blood leukocytes 0 % [facility] Not Estab. 8 eosinophils as percent of blood leukocytes 2 % [facility] Not Estab. 8 monocytes as percent of blood leukocytes 5 % [facility] Not Estab. 8 lymphocytes as percent of blood leukocytes 47 % [facility] Not Estab. 8 neutrophils as percent of blood leukocytes 46 % [facility] Not Estab. 8 platelet count 183 X10E3/UL [facility] 517-359 6418/12/1 8 red blood cell distribution width 14.0 % [facility] 12.3-15.4 8 mean corpuscular hemoglobin concentration, RBC 32.3 G/DL [facility] 31.5-35.7 8 mean corpuscular hemoglobin, RBC 25.1 pg [facility] 26.6-33.0 Low 8 mean corpuscular volume, RBC 78 fL [facility] 79-97 Low 8 hematocrit, blood 41.5 % [facility] 34.0-46.6 8 hemoglobin, blood 13.4 g/dL [facility] 11.1-15.9 8 erythrocyte (RBC) count 5.34 X10E6/UL [facility] 3.77-5.28 High 8 leukocyte count, blood 6.2 X10E3/UL [facility] 3.4-10.8 HISTORY OF MEDICATION USE Medication Status Instructions Dates Provider Indications Com stephanie Torres 10 mg tablet active Take 1 tablet by mouth once a day Naun Faustin Trulicity 0.75 mg/0.5 mL pen injector completed INJECT 0.75 MG UNDER THE SKIN EVERY WEEK - Naun Alforddinoraines Autoinjector 225 mg/1.5 mL auto-injector active INJECT 225 MG SUBCUTANEOUSLY ONCE MONTHLY Naun Faustin lisinopril 20 mg tablet active TAKE 1 TABLET BY MOUTH TWICE DAILY Naun Faustin sertraline 25 mg tablet active Take 1 tablet by mouth once daily Sue Zepeda verapamil 120 mg tablet extended release completed Take 1 tablet by mouth twice daily - Naun Faustin verapamil 120 mg tablet extended release completed Take 1 tablet by mouth twice a day Take one tablet twice daily - Vielka Damon furosemide 20 mg tablet active TAKE 1 TABLET BY MOUTH ONCE DAILY Naun Faustin verapamil 120 mg tablet extended release completed Take one tablet twice daily - Michele Quinones verapamil 120 mg tablet extended release completed Take one tablet twice daily - Naun Faustin metoprolol succinate 50 mg tablet extended release 24 hr completed Take 1 tablet by mouth every night - Naun Faustin sertraline 25 mg tablet completed Take 1 tablet by mouth once a day - Sue Zepeda Bystolic 20 mg tablet completed Take 1 tablet by mouth once a day replaces Verapamil Take one pill at night - Naun Faustin Bystolic 20 mg tablet completed Take 1 tablet by mouth once a day replaces Verapamil Take one pill at night - Summer Heck MD dihydroergotamine 1 mg/mL solution completed Use once a week - Naun Faustin DICLOFENAC POTASSIUM TABLET ER 100 MG active Take 1 tablet by mouth twice a day Mojgan Arboleda tramadol 50 mg tablet active Take 1 tablet by mouth twice a day Mojgan Arboleda lidocaine 5% ointment active Use as needed Mojgan Arboleda ERGOCALCIFEROL 1.25 MG (33620 UT) CAPS active Take tablet by mouth once a week Mojgan Robles butalbital-acetamin ophen 50-325 mg tablet active Take 1 tablet by mouth as needed Mojganines Arboleda NALOXONE HCL 2 MG/2ML INJECTION SOLUTION PREFILLED SYRINGE completed Use as directed in case of opiod overdose only - Mojgan Arboleda Prescribed by Ibrahima Hagen Senna Plus 8.6-50 mg tablet active Take 1 tablet twice a day as needed Sara Burton RN Prescribed by Ibrahima Hagen AMOXICILLIN-POT CLAVULANATE 875-125 MG ORAL TABLET completed Take one tablet twice daily - Mojgan Arboleda gabapentin 300 mg capsule completed Take 1 capsule three times a day - Naun Faustin Prescribed by Ibrahima Hagen topiramate 100 mg tablet completed Take 1 tablet by mouth twice a day - Naun Faustin Prescribed by Ibrahima Hagen IBUPROFEN 400 MG ORAL TABLET completed Take 1-2 tablets 1-3 times daily for pain for 30 days - Mojgan Arboleda Prescribed by Ibrahima Hagen folic acid 1 mg tablet active Take 1 tablet once a day Sara Burton RN Prescribed by Ibrahima Hagen verapamil 180 mg capsule,ext rel. pellets 24 hr completed Take 2 tablet once a day - Summer Heck MD Prescribed by Ibrahima Hagen AMOXICILLIN 500 MG ORAL CAPSULE completed one tab daily - Sara Burton RN baclofen 20 mg tablet active Take 1 tablet by mouth twice a day Mojgan Arboleda Prescribed by Ibrahima Hagen PERCOCET TABLET completed TID, not on it right now - Mojgan Arboleda METOPROLOL TARTRATE 100 MG ORAL TABLET completed take one tablet tonight with dinner and one tablet tomorrow 1 1/2 hrs prior to test. - Summer Heck MD Pre-procedu re medication NALTREXONE HCL 50 MG ORAL TABLET completed 1/2 tab by mouth daily, can take up to two half pills a day if not effective - Summer Heck MD BUPROPION HCL 100 MG ORAL TABLET completed one tab by mouth daily, can take up to twice a day - Summer Heck MD MONTELUKAST SODIUM 10 MG ORAL TABLET completed take one tablet by mouth once daily - Sil valdes BACLOFEN 20 MG ORAL TABLET completed three times daily - Sil valdes TOPIRAMATE 100 MG ORAL TABLET completed take one tablet by mouth once three times daily - Sil valdes GABAPENTIN 300 MG ORAL CAPSULE completed take one tablet by mouth three times daily - Sil valdes [facility] 25 MG ORAL TABLET completed as needed for sleep - Sil valdes OXYCODONE-ACETAMINO PHEN 10-325 MG ORAL TABLET completed as needed for pain - Sil valdes SOCIAL HISTORY Date Observation Value Provider drug use no Naun Faustin alcohol use yes Naun Faustin chewing tobacco use Current Naun Byrne pilar smoking status Former smoker Naun Esquivel i drug use no Naunfaraz Bonnerzacristal alcohol use yes Naun Faustin chewing tobacco use Current Naun Tripathimaxi quezada smoking status Former smoker Naun Tripathibryan i chewing tobacco use Current Wanda fuchs drug use no Summer Heck MD alcohol use yes Summer Heck MD smoking status Former smoker Summer Heck MD social history reviewed E&M revi ewed - no changes required Naun Faustin social history E&M S moking History: Beata goldstein currently smokes every day. Nuan Faustin caffeine use, averag e drinks per day 0 /d Arelis Sheets drug use no [facility] alcohol use yes [facility] smoking status Current every day smoker T amita Sheets social history reviewed E&M revi ewed - no changes required Naun Faustin smoking status Never smoker Brigid Quesadafaina elias social history reviewed E&M revi ewed - no changes required Naun Faustin social history E&M S moking History: Beata goldstein has never smoked. Summer Heck MD social history reviewed E&M revi ewed - no changes required Summer Heck MD smoking status Never smoker Tori Benny social history reviewed E&M revi ewed - no changes required Naun Faustin social history reviewed E&M revi ewed - no changes required Summer Heck MD social history E&M S moking History: Beata goldstein has never smoked. Summer Heck MD social history reviewed E&M revi ewed - no changes required Summer Heck MD smoking status Never smoker Mojgan Arboleda social history E&M S moking History: Beata goldstein has never smoked. Summer Heck MD social history reviewed E&M revi ewed - no changes required Summer Heck MD smoking status Never smoker Antonino german number of grandchildren Summer Strong social history E&M S moking History: Beata goldstein has never smoked. Jose E Fabian MD smoking status Never smoker Sil Wright social history reviewed E&M revi ewed - no changes required Sil Mariscal social history E&M S moking History: Beata goldstein has never smoked. Summer Heck MD smoking status Never smoker Mojgan Arboleda social history reviewed E&M revi ewed - no changes required Mojgan Arboleda smoking status Never smoker Argenis gimenez social history reviewed E&M revi ewed - no changes required Summer Heck MD smoking status Never smoker Mojgan Arboleda FUNCTIONAL STATUS Date Observation Value Provider periodic limb movement index absent (0) Argenis Campos FAMILY HISTORY Family Member Condition Mother [place] female <65 Maternal Grandmother Family History of S udden Cardiac : Mother Family History of Hy pertension: INSURANCE PROVIDERS Payer name Policy type / Coverage type [place] red green party ID UHC MEDICAID [id number] insurance [id number] ADVANCE DIRECTIVES Name Date DISCUSSED - NO DECISION MADE TREATMENT PLAN Date Name Performer [id number],S, Naun Ahmedza i [id number],S, Naun Ahmedza i [id number],S, Naun Ahmedza i [id number],S, Naun Ahmedza i [id number],S, Naun Ahmedza i [id number],B, Naun Ahmedza i [id number],S, Naun Ahmedza i [id number],S, Naun Ahmedza i [id number],S, Naun Ahmedza i [id number],S, Naun Ahmedza i [id number],S, Naun Ahmedza i [id number],S, Summer Heck MD [id number],W, Summer Heck MD [id number],S, Summer Heck MD [id number],W, Summer Heck MD [id number],S, Summer Heck MD Cardiology:This visi t has been a part of the consistent, comprehensive, and ongoing management of the chronic medical condition(s) listed above for the patient. BP today: 128/98 P rior BP: 145/107 (08/14/2023) Prior 10 Yr Risk Heart Disease: Not enough information (01/17/2017) Labs Reviewed: C reat: 0.81 (04/14/2018) C hol: 141 (04/14/2018) HDL: 47 (04/14/2018) LDL: 68 (04/14/2018) T (04/14/2018) Her updated medication list for this problem includes: Lisinopril 20 Mg Tablet (Lisinopril) ..... Take 1 tablet by mouth twice daily Furosemide 20 Mg Tablet (Furosemide) ..... Take 1 tablet by mouth once daily Summer Heck MD Cardiology: H er updated medication list for this problem includes: Lisinopril 20 Mg Tablet (Lisinopril) ..... Take 1 tablet by mouth twice daily Summer Heck MD Cardiology Summer Heck MD Cardiology Summer Heck MD Cardiology Summer Heck MD Cardiology: B P today: 145/107 P rior BP: 157/115 (05/23/2022) Prior 10 Yr Risk Heart Disease: Not enough information (01/17/2017) Labs Reviewed: C reat: 0.81 (04/14/2018) Chol: 141 (04/14/2018) HDL: 47 (04/14/2018) LDL: 68 (04/14/2018) T (04/14/2018) Naun Faustin Cardiology Naun Ahmedzai Cardiology Naun Ahmedzai Cardiology Naun Ahmedzai Cardiology Naun Ahmedzai Cardiology Naun Ahmedzai Cardiology Summer Heck MD Cardiology Summer Heck MD Cardiology Summer Heck MD Cardiology Summer Heck MD Cardiology Summer Heck MD Cardiology Naun Ahmedzai Cardiology Naun Ahmedzai Cardiology Naun Ahmedzai Cardiology Naun Ahmedzai Cardiology Naun Ahmedzai Cardiology Naun Ahmedzai Cardiology Naun Ahmedzai Cardiology Naun Ahmedzai Cardiology Naun Ahmedzai Cardiology Naun Ahmedzai Cardiology Naun Ahmedzai Cardiology Summer Heck MD Cardiology Summer Heck MD Cardiology Summer Heck MD Cardiology Summer Heck MD Cardiology Summer Heck MD Cardiology Summer Heck MD Cardiology Summer Heck MD Cardiology Summer Heck MD Cardiology Summer Heck MD Cardiology Summer Heck MD Cardiology Summer Heck MD Cardiology Summer Heck MD Cardiology Summer Heck MD Cardiology Summer Heck MD Cardiology Summer Heck MD Cardiology Summer Heck MD Cardiology Summer Heck MD Cardiology Jose E Fabian MD Cardiology Jose E Fabian MD Cardiology Jose E Fabian MD Cardiology Jose E Fabian MD Cardiology:failed sleep test can t wear mask Jose E Fabian MD Cardiology:will try srugery will try diet pills Jose E Fabian MD Cardiology:neg zio a nd stress adn echo adn a2c and chol adn iorn and rpr, neg vd Jose E Fabian MD Cardiology:neg zio Jose E Fabian MD Cardiology Summer Heck MD Cardiology Summer Heck MD Cardiology Summer Heck MD Cardiology Summer Heck MD Cardiology Summer Heck MD Cardiology Summer Heck MD Cardiology Summer Heck MD Cardiology Summer Heck MD Cardiology Summer Heck MD Date Name Venous Doppler Bilat eral LE - Reflux Carotid Duplex Bilat eral Monitor - Telemetry (Mobile Cardiac) Complete Echo Vitamin D, 25-Hydrox y CBC (H/H, RBC, INDIC ES, WBC, PLT) Microalb/Creatinine Urine, Random HEMOGLOBIN A1c TSH, free T4, total T3 LIPID PANEL PROBNP, N TERMINAL COMPREHENSIVE METABO LIC PANEL, W/EGFR Complete Echo Stress Regadenoson Test Mobile Cardiac Tele COMPREHENSIVE METABO LIC PANEL, W/EGFR PROBNP, N TERMINAL X-Ray, Chest - Routi ne PROTHROMBIN TIME WIT H INR LIPID PANEL CBC (INCLUDES DIFF/P LT) CT Angio Coronaries DLCO - 52315 FRC - 24948 FVC - 40426 HISTORY OF PROCEDURES Procedure Date Procedure Name Provider Procedure Notes S tatus Complex e/m visit add on Summer Heck MD completed EKG Summer Heck MD completed EKG Summer Heck MD completed Stress EKG Summer Heck MD completed Regadenoson, 4 units Summer Heck MD completed Cardiolite, 2 units Summer Heck MD completed SPECT Images Summer Heck MD complet ed FVC / MVV - 02870 Jose E Fabian MD c ompleted FRC - 80306 Jose E Fabian MD complet ed SpO2 w/o 6min walk/titration Jose E Fabian MD completed DLCO - 84043 Jose E Fabian MD comple michelle Event Monitor Summer Heck MD comple michelle EKG Jose E Fabian MD complete d SNOMED-CT: 208700903 [id number] Current Medications Documented Summer Heck MD completed Stress EKG Adrianna Hughes MD complet ed ZIO Event Hookup Summer Heck MD com pleted SNOMED-CT: 50022618 Physical Exam, Performed: Pulse Exam of Foot Summer Heck MD completed EKG Summer Heck MD completed SNOMED-CT: [id number] [id number] Current Medications Documented Summer Heck MD completed
--- OUTSIDE RECORDS SUMMARY | 2024-08-18 10:25 | XMS_ITS | Encounter Summary ---
Author Organization [employer] Address 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
--- OUTSIDE RECORDS SUMMARY | 2024-08-18 10:25 | XMS_ITS | Encounter Summary ---
Author Organization [facility] Address [address] [place] [address] Care Team Providers Care Preventive Medicine Specialist Name Role Phone Adis Mcdermott MD Primary Care Provider [phone] Encounter Details Date Type Department Care Team (Late st Contact Info) Description 01/10/2003 Outpatient Historical [facility] Internal Medicine [address] [address] Shaheen Stokes MD [address] [place] [address] [phone] Social History Tobacco Use Types Packs/Day Years Used Date Smoking Tobacco: Never Assessed Comments Unknown Sex and Gender Information Value Date Recorded Sex Assigned at Not on file Legal Sex Female 4:17 AM CATERING DIRECTOR Gender Identity Not on file Sexual Orientation Not on file documented as of this encounter Last Filed Vital Signs Vital Sign Reading Time Taken Comments Blood Pressure 120/60 01/10/2003 4:45 PM CDT Pulse - - Temperature - - Respiratory Rate - - Oxygen Saturation - - Inhaled Oxygen Concentration - - Weight 74.4 kg (164 lb) 01/10/2003 4:45 PM CDT Height - - Body Mass Index - - documented in this encounter Plan of Treatment Not on file documented as of this encounter Visit Diagnoses Not on filedocumented in this encounter Care Teams Preventive Medicine Specialist Relationship Specialty Start Date End Date Adis Mcdermott MD PCP - General Internal Medicine 07/08/14 documented as of this encounter
--- OUTSIDE RECORDS SUMMARY | 2024-08-18 10:25 | XMS_ITS | Encounter Summary ---
Author Organization [facility] Address [address] [place] [address] Care Team Providers Care Sand Screener Name Role Phone Adis Mcdermott MD Primary Care Provider [phone] Encounter Details Date Type Department Care Team (Late st Contact Info) Description 03/18/2003 Outpatient Historical [facility] Internal Medicine [address] [address] Shaheen Stokes MD [address] [place] [address] [phone] Social History Tobacco Use Types Packs/Day Years Used Date Smoking Tobacco: Never Assessed Comments Unknown Sex and Gender Information Value Date Recorded Sex Assigned at Not on file Legal Sex Female 4:17 AM REAL ESTATE MARKETING COORDINATOR Gender Identity Not on file Sexual Orientation Not on file documented as of this encounter Last Filed Vital Signs Vital Sign Reading Time Taken Comments Blood Pressure 110/74 03/18/2003 11:00 AM REAL ESTATE MARKETING COORDINATOR Pulse - - Temperature - - Respiratory Rate - - Oxygen Saturation - - Inhaled Oxygen Concentration - - Weight 70.8 kg (156 lb) 03/18/2003 11:00 AM REAL ESTATE MARKETING COORDINATOR Height - - Body Mass Index - - documented in this encounter Plan of Treatment Not on file documented as of this encounter Visit Diagnoses Not on filedocumented in this encounter Care Teams Sand Screener Relationship Specialty Start Date End Date Adis Mcdermott MD PCP - General Internal Medicine 07/08/14 documented as of this encounter
--- OUTSIDE RECORDS SUMMARY | 2024-08-18 10:25 | XMS_ITS | Referral Summary ---
Author Organization [address] Address [address] [place] [address] Care Team Providers Care Finishing Area Supervisor Name Role Phone Adis Mcdermott MD Primary [...] pain 08/01/2023 Lipid screening 08/01/2023 Palpitations 08/01/2023 Social History Tobacco Use Types Packs/Day Years [...] Orientation Straight 08/27/2022 6: 49 AM CDT Last Filed Vital Signs Vital Sign Reading Time Taken Comments Blood Pressure 113/70 04/07/2024 9:55 AM FOOD SERVICE KITCHEN SUPERVISOR Pulse 63 04/07/2024 9:55 AM FOOD SERVICE KITCHEN SUPERVISOR Temperature 37.2 C (99 F) 08/27/2022 5:05 PM CDT Respiratory Rate 18 04/07/2024 9:55 AM FOOD SERVICE KITCHEN SUPERVISOR Oxygen Saturation 98% 12/19/2023 3:26 PM CDT Inhaled Oxygen Concentration - - Weight 82.2 kg (181 lb 4.8 oz) 04/07/2024 9:55 A M FOOD SERVICE KITCHEN SUPERVISOR Height 172.7 cm (5' 8 ) 04/07/2024 9:55 AM FOOD SERVICE KITCHEN SUPERVISOR Body Mass Index 27.57 04/07/2024 9:55 AM FOOD SERVICE KITCHEN SUPERVISOR Plan of Treatment Not on file Insurance Spinal Simplicity OOS Sp[employer] OOS Spinal Simplicity OOS [facility] Address: [place] [address] Care Teams Finishing Area Supervisor Relationship Specialty Start Date End Date Adis Mcdermott MD PCP - General Internal Medicine 08/27/22
--- OUTSIDE RECORDS SUMMARY | 2024-08-18 10:25 | XMS_ITS | Data Portability ---
Author Organization [facility], Main Office Address [address] [facility] [address] [place] [address] Assessment No assessment recorded. Plan of Treatment Reminders Order Date Submit Date Provider Last Modified By Organization Details Last Modified Time Details Appointments None record ed. Lab None record ed. Referral None record ed. Procedures biopsy , skin (PROC) 024 11/12/19 24 [email or web address] Not available 10:15:06 Surgeries None record ed. Imaging None record ed. Medication Orders None record ed. Patient TargetsNo targets recorded. Patient Instructions Encounter Date Encounter Id Patient Instructions Last Modified By Organization Details Last Modified Time 11/12/2023 [id number] Informed consent . Betadine prep. 1% lidocaine with epinephrine. Shave biopsy from: left post upper LEG AlCL3 and cautery hemostasis. Aquaphor, bandage and wound care given. Will call pt with path. [email or web address] Not available 11/12/2023 10:14:36 Reason for Referral None Reported. Problems Name Problem SNOMED Code Status Onset Date Resolution Date Notes Provider Name and Address Organization Details Recorded Time Melanocytic nevus of trunk 146445781 Active 2022 Alex Carrasquillo MD [address] [facility] [address], [place], [address], [facility] 3 15:32:41 Seborrheic keratosis 984946016 Active 2022 Alex Carrasquillo MD [address] [facility] [address], [place], [address], [facility] 3 15:32:44 Benign neoplasm of skin 27109232 Active 2023 Alex Carrasquillo MD [address] [facility] [address], [place], [address], [facility] 4 11:49:17 Neoplasm of uncertain behavior of skin 55871156 Active 2023 Alex Carrasquillo MD [address] [facility] [address], [place], [address], [facility] 4 10:13:16 Milia 751527269 Active 2024 Alex Carrasquillo MD [address] [facility] [address], [place], [address], [facility] 5 11:56:02 Plane wart 654827920 Active 2024 Alex Carrasquillo MD [address] [facility] [address], [place], [address], [facility] 5 11:56:50 Benign neoplasm of skin of left upper limb 4509497938057 101 Active 2024 Alex Carrasquillo MD [address] [facility] [address], [place], [address], [facility] 5 10:59:59 Nummular eczema 54392655 Active 2020 Alex Carrasquillo MD [address] [facility] [address], [place], [address], [facility] 1 15:59:56 Nummular eczema 11971582 Active 2020 Alex Carrasquillo MD [address] [facility] [address], [place], [address], [facility] 1 16:00:00 Actinic keratosis 013734623 Active 2020 Alex Carrasquillo MD [address] [facility] [address], [place], [address], [facility] 1 09:24:35 Pityriasis versicolor 59200677 Active 2020 Alex Carrasquillo MD [address] [facility] [address], [place], [address], [facility] 09:24:39 Chronic effect of ultraviolet radiation on normal skin 281914381 Active 2020 Alex Carrasquillo MD [address] [facility] [address], [place], [address], [facility] 09:24:41 Problem Notes None recorded. Medical Equipment None Reported. Allergies No known drug allergies Medications Name Sig Start Date Stop Date Status Note LastModified by Organization Details LastModified Time BD Luer-Joan Syringe 3 mL 23 x 1 INJECT TESTOSTERON E IN THE MUSCLE WEEKLY 90 active Not Available Not Available No t Available azithromycin 250 mg tablet active Not Available Not Available Not Available clarithromyc in 500 mg tablet TAKE 1 TABLET BY MOUTH TWICE DAILY FOR 10 DAYS active Not Available Not Available No t Available tretinoin 0.025 % topical cream APPLY TO THE face BY TOPICAL ROUTE ONCE DAILY AT BEDTIME active Not Available Not Available No t Available metronidazol e 0.75 % (37.5 mg/5 gram) vaginal gel INSERT 1 APPLICATORF UL VAGINALLY 1 TIME FOR 5 DAYS NEEDED FOR VAGINAL IRRITATION active Not Available Not Available N ot Available metronidazol e 500 mg tablet TAKE 1 TABLET BY MOUTH THREE TIMES DAILY FOR 10 DAYS active Not Available Not Available Not Available insulin syringe U-100 with needle 1 mL 29 gauge x 7/16 USE TO INJECT CYANOCOBALA MIN UNDER THE SKIN ONCE WEEKLY. active Not Available Not Available No t Available liothyronine 5 mcg tablet TAKE 1 TABLET BY MOUTH TWICE DAILY active Not Available Not Available No t Available triamcinolon e acetonide 0.1 % topical cream APPLY A THIN LAYER TO THE left hip rash BY TOPICAL ROUTE 2 TIMES PER day for 4 weeks. NEVER TO FACE. 2019 active Not Available Not Available Not Avai lable alprazolam 0.5 mg tablet TAKE 1 TABLET BY MOUTH TWICE DAILY NEEDED FOR PANIC active Not Available Not Available No t Available dexamethason e 1 mg tablet TAKE 1 TABLET BY MOUTH AT 10 PM THE NIGHT BEFORE CORTISOL active Not Available Not Available No t Available cyanocobalam in (vit B-12) 1,000 mcg/mL injection solution active Not Available Not Available Not Available naproxen sodium 550 mg tablet TAKE 1 TABLET BY MOUTH EVERY 12 HOURS NEEDED active Not Available Not Available No t Available sertraline 25 mg tablet TAKE 1 TABLET BY MOUTH DAILY active Not Available Not Available Not Available omeprazole 20 mg capsule,edilson yed release TAKE 1 CAPSULE BY MOUTH TWICE DAILY FOR 10 DAYS active Not Available Not Available No t Available testosterone cypionate 200 mg/mL intramuscula r oil INJECT 0.1ML INTRAMUSCUL AR WEEKLY DISCARD REMAINDER active Not Available Not Available No t Available sertraline 50 mg tablet active Not Available Not Available Not Available doxycycline hyclate 100 mg tablet TAKE 1 TABLET BY MOUTH TWICE DAILY FOR 10 DAYS active Not Available Not Available No t Available TRUEplus Insulin 1 mL 29 gauge x 1/2 syringe USE TO INJECT CYANOCOBALA MIN UNDER THE SKIN ONCE WEEKLY. active Not Available Not Available No t Available ID NOW COVID-19 Test Kit TEST DIRECTED TODAY active Not Available Not Available No t Available Fluarix Quad (PF) 60 mcg (15 mcg x 4)/0.5 mL IM syringe ADM 0.5ML IM UTD active Not Available Not Available No t Available Vitals None Recorded Social History None recorded. Functional Status None recorded. Mental Status None recorded. Family History Nothing Reported. Medical History No medical history recorded. Gynecological HistoryNo gynecological history recorded. Obstetrics History GPAL:G 0 P 0 0 0 0 Past Encounters Encounter ID Performer Location Encounter Start Date Encounter Closed Date Diagnosis/Indication Diagnosis SNOMED-CT Code Diagnosis ICD10 Code Diagnosis Note [id number] Alex Carrasquillo MD Main Office [address] [facility] [address] [place] [id number] 11/12/2023 09:53:19 11/12/2023 10:15:59 Neoplasm of uncertain behavior of skin 84254251 D48.5 Health Concerns Section Related Observation LastModified by Organization Detai ls LastModified Time None Recorded Concern Status LastModified by Organization Details LastModified Time None Recorded Advance Directives Directive None Recorded Payers Encounter Date Sequence Insurance Name Policy Number Policy Frost Covered Member ID Frost Member ID Guarantor Name 11/12/2023 1 [place] [id number] Judy Isbell [id number] Judy Isbell Notes Date Note Type Note Provider Name and Address Organization Details Recorded Time 11/12/2023 text/html Bx of l post LEG pigmented lesion Alex Carrasquillo MD [address], [place], [address], [facility] 11/12/2023 10:15:27 OBGyn Episode No OBEpisode recorded.
--- OUTSIDE RECORDS SUMMARY | 2024-08-18 10:25 | XMS_ITS | Encounter Summary ---
Author Organization [facility] Address [address] [place] [address] Care Team Providers Care Platform Software Engineer Name Role Phone Adis Mcdermott MD Primary Care Provider [phone] Encounter Details Date Type Department Care Team (Late st Contact Info) Description 04/07/2003 Outpatient Historical [facility] Adis Blake MD [address] [place] [address] REFLUX ESOPHAGITIS (Primary Dx) Social History Tobacco Use Types Packs/Day Years Used Date Smoking Tobacco: Never Assessed Comments Unknown Sex and Gender Information Value Date Recorded Sex Assigned at Not on file Legal Sex Female 4:17 AM BULB WEEDER Gender Identity Not on file Sexual Orientation Not on file documented as of this encounter Plan of Treatment Not on file documented as of this encounter Visit Diagnoses Diagnosis Reflux esophagitis- Primary documented in this encounter Care Teams Platform Software Engineer Relationship Specialty Start Date End Date Adis Mcdermott MD PCP - General Internal Medicine 07/08/14 documented as of this encounter
--- OUTSIDE RECORDS SUMMARY | 2024-08-18 10:25 | XMS_ITS | Encounter Summary ---
Author Organization [facility] Address [address] [place] [address] Care Team Providers Care Metal Control Worker Name Role Phone Adis Mcdermott MD Primary Care Provider [phone] Encounter Details Date Type Department Care Team (Late st Contact Info) Description 05/05/2003 Outpatient Historical [facility] Internal Medicine [address] [address] Shaheen Stokes MD [address] [place] [phone] Social History Tobacco Use Types Packs/Day Years Used Date Smoking Tobacco: Never Assessed Comments Unknown Sex and Gender Information Value Date Recorded Sex Assigned at Not on file Legal Sex Female 4:17 AM STATION ATTENDANT Gender Identity Not on file Sexual Orientation Not on file documented as of this encounter Last Filed Vital Signs Vital Sign Reading Time Taken Comments Blood Pressure 120/70 05/05/2003 4:00 PM STATION ATTENDANT Pulse - - Temperature 37.3 C (99.1 F) 05/05/2003 4:00 PM STATION ATTENDANT Respiratory Rate - - Oxygen Saturation - - Inhaled Oxygen Concentration - - Weight 75.8 kg (167 lb) 05/05/2003 4:00 PM STATION ATTENDANT Height - - Body Mass Index - - documented in this encounter Plan of Treatment Not on file documented as of this encounter Visit Diagnoses Not on filedocumented in this encounter Care Teams Metal Control Worker Relationship Specialty Start Date End Date Adis Mcdermott MD PCP - General Internal Medicine 07/08/14 documented as of this encounter
--- OUTSIDE RECORDS SUMMARY | 2024-08-18 10:25 | XMS_ITS | Encounter Summary ---
Author Organization [facility] Address [address] [place] [address] Care Team Providers Care Director Of Retail Analytics Name Role Phone Adis Mcdermott MD Primary Care Provider Encounter Details Date Type Department Care Team (Late st Contact Info) Description 09/13/2003 Outpatient Historical [facility] Internal Medicine [address] [address] Shaheen Stokes MD [address] [place] [address] [phone] Social History Tobacco Use Types Packs/Day Years Used Date Smoking Tobacco: Never Assessed Comments Unknown Sex and Gender Information Value Date Recorded Sex Assigned at Not on file Legal Sex Female 4:17 AM OFFICE CLERK ASSISTANT Gender Identity Not on file Sexual Orientation Not on file documented as of this encounter Last Filed Vital Signs Vital Sign Reading Time Taken Comments Blood Pressure 110/72 09/13/2003 4:15 PM CDT Pulse - - Temperature - - Respiratory Rate - - Oxygen Saturation - - Inhaled Oxygen Concentration - - Weight 73.5 kg (162 lb) 09/13/2003 4:15 PM CDT Height - - Body Mass Index - - documented in this encounter Plan of Treatment Not on file documented as of this encounter Visit Diagnoses Not on filedocumented in this encounter Care Teams Director Of Retail Analytics Relationship Specialty Start Date End Date Adis Mcdermott MD PCP - General Internal Medicine 07/08/14 documented as of this encounter
--- OUTSIDE RECORDS SUMMARY | 2024-08-18 10:25 | XMS_ITS | Encounter Summary ---
Author Organization [facility] Address [address] [place] [address] Care Team Providers Care Carbon Sequestration Plant Operator Name Role Phone Adis Mcdermott MD Primary Care Provider [phone] Encounter Details Date Type Department Care Team (Late st Contact Info) Description 04/02/2004 Outpatient Historical [facility] Internal Medicine [address] [address] Shaheen Stokes MD [address] [place] [phone] Social History Tobacco Use Types Packs/Day Years Used Date Smoking Tobacco: Never Assessed Comments Unknown Sex and Gender Information Value Date Recorded Sex Assigned at Not on file Legal Sex Female 4:17 AM RECORDS AND TAPE RECORDINGS ENGINEER Gender Identity Not on file Sexual Orientation Not on file documented as of this encounter Last Filed Vital Signs Vital Sign Reading Time Taken Comments Blood Pressure 110/70 04/02/2004 10:30 AM RECORDS AND TAPE RECORDINGS ENGINEER Pulse - - Temperature - - Respiratory Rate - - Oxygen Saturation - - Inhaled Oxygen Concentration - - Weight 71.7 kg (158 lb) 04/02/2004 10:30 AM RECORDS AND TAPE RECORDINGS ENGINEER Height - - Body Mass Index - - documented in this encounter Plan of Treatment Not on file documented as of this encounter Visit Diagnoses Not on filedocumented in this encounter Care Teams Carbon Sequestration Plant Operator Relationship Specialty Start Date End Date Adis Mcdermott MD PCP - General Internal Medicine 07/08/14 documented as of this encounter
--- OUTSIDE RECORDS SUMMARY | 2024-08-18 10:25 | XMS_ITS | Encounter Summary ---
Author Organization [facility] Address [address] [place] [address] Care Team Providers Care Superintendent Drilling Name Role Phone Adis Mcdermott MD Primary Care Provider [phone] Encounter Details Date Type Department Care Team (Late st Contact Info) Description 06/22/2003 Outpatient Historical [facility] Internal Medicine [address] [address] Shaheen Stokes MD [address] [place] [phone] Social History Tobacco Use Types Packs/Day Years Used Date Smoking Tobacco: Never Assessed Comments Unknown Sex and Gender Information Value Date Recorded Sex Assigned at Not on file Legal Sex Female 4:17 AM UTILITIES OPERATOR Gender Identity Not on file Sexual Orientation Not on file documented as of this encounter Last Filed Vital Signs Vital Sign Reading Time Taken Comments Blood Pressure 122/70 06/22/2003 2:15 PM UTILITIES OPERATOR Pulse - - Temperature - - Respiratory Rate - - Oxygen Saturation - - Inhaled Oxygen Concentration - - Weight 76.7 kg (169 lb) 06/22/2003 2:15 PM UTILITIES OPERATOR Height - - Body Mass Index - - documented in this encounter Plan of Treatment Not on file documented as of this encounter Visit Diagnoses Not on filedocumented in this encounter Care Teams Superintendent Drilling Relationship Specialty Start Date End Date Adis Mcdermott MD PCP - General Internal Medicine 07/08/14 documented as of this encounter
--- OUTSIDE RECORDS SUMMARY | 2024-08-18 10:25 | XMS_ITS | Encounter Summary ---
Author Organization [facility] Address [address] [place] [address] Care Team Providers Care Tender Coordinator Name Role Phone Adis Mcdermott MD Primary Care Provider [phone] Encounter Details Date Type Department Care Team (Late st Contact Info) Description 02/24/2003 Outpatient Historical [facility] Internal Medicine [address] [address] Shaheen Stokes MD [address] [place] [phone] Social History Tobacco Use Types Packs/Day Years Used Date Smoking Tobacco: Never Assessed Comments Unknown Sex and Gender Information Value Date Recorded Sex Assigned at Not on file Legal Sex Female 4:17 AM WHARF OPERATOR Gender Identity Not on file Sexual Orientation Not on file documented as of this encounter Plan of Treatment Not on file documented as of this encounter Visit Diagnoses Not on filedocumented in this encounter Care Teams Tender Coordinator Relationship Specialty Start Date End Date Adis Mcdermott MD PCP - General Internal Medicine 07/08/14 documented as of this encounter
--- OUTSIDE RECORDS SUMMARY | 2024-08-18 10:25 | XMS_ITS | Encounter Summary ---
Author Organization [facility] Address [address] [place] [address] Care Team Providers Care Shuttle Fixer Name Role Phone Adis Mcdermott MD Primary Care Provider [phone] Encounter Details Date Type Department Care Team (Late st Contact Info) Description 02/22/2003 Outpatient Historical [facility] Internal Medicine [address] [address] Shaheen Stokes MD [address] [place] [phone] Social History Tobacco Use Types Packs/Day Years Used Date Smoking Tobacco: Never Assessed Comments Unknown Sex and Gender Information Value Date Recorded Sex Assigned at Not on file Legal Sex Female 4:17 AM SALES REPRESENTATIVE SUPERVISOR Gender Identity Not on file Sexual Orientation Not on file documented as of this encounter Last Filed Vital Signs Vital Sign Reading Time Taken Comments Blood Pressure 102/60 02/22/2003 11:45 AM SALES REPRESENTATIVE SUPERVISOR Pulse - - Temperature - - Respiratory Rate - - Oxygen Saturation - - Inhaled Oxygen Concentration - - Weight 73.5 kg (162 lb) 02/22/2003 11:45 AM SALES REPRESENTATIVE SUPERVISOR Height - - Body Mass Index - - documented in this encounter Plan of Treatment Not on file documented as of this encounter Visit Diagnoses Not on filedocumented in this encounter Care Teams Shuttle Fixer Relationship Specialty Start Date End Date Adis Mcdermott MD PCP - General Internal Medicine 07/08/14 documented as of this encounter
--- OUTSIDE RECORDS SUMMARY | 2024-08-18 10:26 | XMS_ITS | Encounter Summary ---
Author Organization [facility] Address [address] [place] [address] Care Team Providers Care Plastics Bench Mechanic Name Role Phone Adis Mcdermott MD Primary Care Provider [phone] Encounter Details Date Type Department Care Team (Late st Contact Info) Description 11/19/2005 Outpatient Historical [facility] Internal Medicine [address] [address] Adis Mcdermott MD [address] [place] [phone] Social History Tobacco Use Types Packs/Day Years Used Date Smoking Tobacco: Never Assessed Comments Unknown Sex and Gender Information Value Date Recorded Sex Assigned at Not on file Legal Sex Female 4:17 AM PROMOTION PRODUCER Gender Identity Not on file Sexual Orientation Not on file documented as of this encounter Last Filed Vital Signs Vital Sign Reading Time Taken Comments Blood Pressure 120/68 11/19/2005 4:00 PM CDT Pulse - - Temperature 36.9 C (98.4 F) 11/19/2005 4:00 PM CDT Respiratory Rate - - Oxygen Saturation - - Inhaled Oxygen Concentration - - Weight 68 kg (150 lb) 11/19/2005 4:00 PM CDT Height - - Body Mass Index - - documented in this encounter Plan of Treatment Not on file documented as of this encounter Visit Diagnoses Not on filedocumented in this encounter Care Teams Plastics Bench Mechanic Relationship Specialty Start Date End Date Adis Mcdermott MD PCP - General Internal Medicine 07/08/14 documented as of this encounter
--- OUTSIDE RECORDS SUMMARY | 2024-08-18 10:26 | XMS_ITS | Encounter Summary ---
Author Organization [facility] Address 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 CURRENT ALLERGY LIST: NO KNOWN ALLERGIES PHARMACY NUMBER: [phone] PROBLEMS: EARACHE: Patient complains of earache. The symptoms began approximately 2 days ago. Rt ear only. Thinks it could be infected. Feels like there's water in her ear. Going on an airplane this week end. Taking gen Lynn. SECTION 1: REQUESTED ACTION hilary 10/20/06 at 04:18 pm: MEDICATION REQUEST: Z-erica Patient wants medications and can not come in. DOCTOR`S RESPONSE: susan 10/20/06 at 04:51 pm see tomorrow, should dx properly if getting on plane FINAL ACTION: paz 10/20/06 at 04:55 pm Spoke with patient 10/20/06 at 04:55 pm. Booked appointment: 10/21/06 Electronically Signed by: Nadira Clay on Friday, October 20, 2006 documented in this encounter Plan of Treatment Not on file documented as of this encounter Visit Diagnoses Not on filedocumented in this encounter Care Teams Electrical Helper Relationship Specialty Start Date End Date Adis Mcdermott MD PCP - General Internal Medicine 07/08/14 documented as of this encounter
--- OUTSIDE RECORDS SUMMARY | 2024-08-18 10:26 | XMS_ITS ---
Author Organization [facility] Address [address] [place] [address] Care Team Providers Care Logistics Analytics Manager Name Role Phone Lydia Chavez Primary Care Provider REASON FOR VISIT Lab FU Encounters Encounter Location Date Provider Diagnosis [facility] - Lydia Chavez [address] [place] [address] 05/26/2024 Lydia Chavez Plan Of Treatment No Information Progress Notes * Judy VAUGHNDOB:1980 (43 yo F)Acc No.[id number]:05/26/2024 Progress Notes Patient: Flores OROURKEnifer Provider: Shelia Chavez MD :1980 A ge:43 Y S ex:Female Date:05/26/2024 Address:[address] [place], [place] [id number] Subjective: * Chief Complaints: * 1 . Lab FU. * Medical History: Objective: * Vitals: Assessment: Plan: * Treatment: * Billing Information: * Visit Code: * Procedure Codes: * Electronic signature of Cristi Chavez MD on 08/18/2024 at 10:25 AM CDT Sign off status: Pending * Provider: Shelia Chavez MD Date: 05/26/2024 Generated for Fouzia corrales/Brenda/eTransmitting on: 0 08/18/2024 10:25 AM CDT
--- OUTSIDE RECORDS SUMMARY | 2024-08-18 10:26 | XMS_ITS | Encounter Summary ---
Author Organization [employer] Address [address] [place] [address] Care Team Providers Care Mapping Pilot Name Role Phone Adis Mcdermott MD Primary Care Provider [phone] Encounter Details Date Type Department Care Team (Latest Contact Info) Description 08/06/2004 Outpatient Historical [facility] [employer] MECHANIC Shaheen Stokes MD [address] [place] [phone] ABNORMAL WEIGHT GAIN (Primary Dx) Social History Tobacco Use Types Packs/Day Years Used Date Smoking Tobacco: Never Assessed Comments Unknown Sex and Gender Information Value Date Recorded Sex Assigned at Not on file Legal 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
--- OUTSIDE RECORDS SUMMARY | 2024-08-18 10:26 | XMS_ITS | Encounter Summary ---
Author Organization [facility] Address 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 PHARMACY NUMBER: [phone] PROBLEMS: pt states ketek makes her feel worse CONGESTION: Patient complains of congestion. SECTION 1: REQUESTED ACTION yesika 11/21/05 at 11:59 am: MEDICATION REQUEST: Patient wants medications and can not come in.prefer z-casey DOCTOR`S RESPONSE: susan 11/21/05 at 12:12 pm MEDICATIONS: Call in to Pharmacy KETEK ORAL TABLET 400 MG, 2 Every Morning, 10 Dispensed, status: DISCONTINUED, 11/21/2005. ZITHROMAX Z-CASEY ORAL TABLET 250 MG, DIRECTED, 1 Dispensed, status: NEW PRESCRIPTION, 11/21/2005. FINAL ACTION: mitch 11/21/05 at 02:06 pm Spoke with patient 11/21/05 at 02:07 pm. Called pharmacy at 11/21/05 at 02:06 pm. Electronically Signed by: Aden Mcallister on October documented in this encounter Plan of Treatment Not on file documented as of this encounter Visit Diagnoses Not on filedocumented in this encounter Care Teams Logger All Round Relationship Specialty Start Date End Date Adis Mcdermott MD PCP - General Internal Medicine 07/08/14 documented as of this encounter
--- OUTSIDE RECORDS SUMMARY | 2024-08-18 10:26 | XMS_ITS | Encounter Summary ---
Author Organization [facility] Address [address] [place] [address] Care Team Providers Care Sales Training Representative Name Role Phone Adis Mcdermott MD Primary Care Provider [phone] Encounter Details Date Type Department Care Team (Late st Contact Info) Description 10/21/2006 Orders Only [facility] Internal Medicine [address] [address] Adis Mcdermott MD [address] [place] [phone] Social History Tobacco Use Types Packs/Day Years Used Date Smoking Tobacco: Never Assessed Comments Unknown Sex and Gender Information Value Date Recorded Sex Assigned at Not on file Legal Sex Female 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 Canal unremarkable, EFFUSION PRESENT IN THE RIGHT EAR, RIGHT TYMPANIC MEMBRANE INFLAMED. ORAL: Inspection of gums, lips, palate, and teeth normal. No scars, lesions, or masses. Oral mucosaunremarkable with non-inflamed posterior pharynx. NECK/THYROID: Trachea midline. No thyroid enlargement, tenderness, or mass. No supraclavicular or cervical adenopathy. RESPIRATORY: Clear to auscultation and percussion. Normal respiratory effort. CARDIOVASCULAR: CARDIAC: Regular rhythm. No murmurs, rubs, or gallops. EDEMA/VARICOSITIES OF EXTREMITIES: No edema or varicosities. ASSESSMENT/PLAN: 461.9-SINUSITIS UNSPECIFIED with OM ,rx MEDICATIONS: LEVAQUIN ORAL TABLET 750 MG, 1 Every Day, 5 Dispensed, status: NEW PRESCRIPTION, 10/21/2006. PREVENTIVE COUNSELING The patient was counseled regarding possible decrease of contraceptive effectiveness when antibiotics are taken, and recommendation of back up contraception made, the proper useof sunscreen and protective clothing. RETURN VISIT : Instructed to call if not improving. Electronically Signed by: Adis Mcdermott MD on Saturday, October 21, 2006 documented in this encounter Plan of Treatment Not on file documented as of this encounter Visit Diagnoses Not on filedocumented in this encounter Care Teams Sales Training Representative Relationship Specialty Start Date End Date Adis Mcdermott MD PCP - General Internal Medicine 07/08/14 documented as of this encounter
--- OUTSIDE RECORDS SUMMARY | 2024-08-18 10:26 | XMS_ITS | Encounter Summary ---
Author Organization [facility] Address 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 Patient reports no known allergies. PHARMACY NUMBER: [phone] SECTION 1: Stung be wasp on side of right foot. Bright red and swollen. Very painful. REQUESTED ACTION peter 11/26/05 at 03:48 pm: What can she do for the pain? alondra DOCTOR`S RESPONSE: susan 11/26/05 at 03:51 pm can see now she may need rx--if she does not want tocome in she can try benadryl/ibuprofen FINAL ACTION: peter 11/26/05 at 04:01 pm Spoke with patient 11/26/05 at 04:01 pm. Booked appointment: Pt to be seen today garry. sl Electronically Signed by: Vickie Miller on Saturday, November 26, 2005 * Adis Mcdermott MD - 02/04/2008 9:29 PM CDT WEIGHT: 150lbs BLOOD PRESSURE: 120/70 Right Arm Sitting NURSE NAME: Fidel Pichardo N CHIEF COMPLAINT Stung by wasp on right foot HISTORY: HISTORY: 461.9-SINUSITIS UNSPECIFIED on med improving E905.3-VENOMOUS ANIMALS AND PLANTS THE CAUSE OF POISON bee sting earlier today pain swelling foot increasing PHYSICAL EXAMINATION: EARS, NOSE, MOUTH AND THROAT: EARS: improved ORAL: No erythema in oropharynx. NECK/THYROID: Trachea midline. No thyroid enlargement, tenderness, or mass. No supraclavicular or cervical adenopathy. RESPIRATORY: Clear to auscultation and percussion. Normal respiratory effort. CARDIOVASCULAR: CARDIAC: Regular rhythm. No murmurs, rubs, or gallops. EDEMA/VARICOSITIES OF EXTREMITIES: No edema or varicosities. SKIN: foot swollen redness, very tender ASSESSMENT/PLAN: 461.9-SINUSITIS UNSPECIFIED finish rx E905.3-VENOMOUS ANIMALS AND PLANTS THE CAUSE OF POISON rx, ok tyl or ibuprofen MEDICATIONS: MEDROL (CASEY) ORAL TABLET 4 MG, DIRECTED, 1 Dispensed, status: NEW PRESCRIPTION, 11/26/2005. RETURN VISIT : Instructed to call if not improving. Electronically Signed by: Adis Mcdermott MD on Saturday, November 26, 2005 documented in this encounter Plan of Treatment Not on file documented as of this encounter Visit Diagnoses Not on filedocumented in this encounter Care Teams Systems Trainer Relationship Specialty Start Date End Date Adis Mcdermott MD PCP - General Internal Medicine 07/08/14 documented as of this encounter
--- OUTSIDE RECORDS SUMMARY | 2024-08-18 10:26 | XMS_ITS | Encounter Summary ---
Author Organization [facility] Address [address] [place] [address] Care Team Providers Care Director Hedis Name Role Phone Adis Mcdermott MD Primary Care Provider [phone] Encounter Details Date Type Department Care Team (Late st Contact Info) Description 03/04/2006 Orders Only [facility] Internal Medicine [address] [address] Adis Mcdermott MD [address] [place] [phone] Social History Tobacco Use Types Packs/Day Years Used Date Smoking Tobacco: Never Assessed Comments Unknown Sex and Gender Information Value Date Recorded Sex Assigned at Not on file Legal 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 thumb cracked and painful. HISTORY: HISTORY: rash thumb weeks, not improved, no drainage, very itchy 692.9-ECZEMA 493.90-ASTHMA UNSPECIFIED The asthma is stable. PHYSICAL EXAMINATION: EARS, NOSE, MOUTH AND THROAT: EARS: EFFUSION PRESENT BILATERALLY, TYMPANIC MEMBRANES INFLAMED BILATERALLY. ORAL: Normal oropharynx. NECK/THYROID: Trachea midline. No thyroid enlargement, tenderness, or mass. No supraclavicular or cervical adenopathy. RESPIRATORY: Clear to auscultation and percussion. Normal respiratory effort. CARDIOVASCULAR: CARDIAC: Regular rhythm. No murmurs, rubs, or gallops. EDEMA/VARICOSITIES OF EXTREMITIES: No edema or varicosities. 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 493.90-ASTHMA UNSPECIFIED seasonal, sees allergy, rec flu vac, pnvx LAB ORDERS: Order number: [id number] Test Ordered: [id number] RETURN VISIT : Instructed to call if not improving. Electronically Signed by: Adis Mcdermott MD on Saturday, March 04, 2006 documented in this encounter Plan of Treatment Not on file documented as of this encounter Visit Diagnoses Not on filedocumented in this encounter Care Teams Director Hedis Relationship Specialty Start Date End Date Adis cMdermott MD PCP - General Internal Medicine 07/08/14 documented as of this encounter
--- OUTSIDE RECORDS SUMMARY | 2024-08-18 10:26 | XMS_ITS | Encounter Summary ---
Author Organization [facility] Address [address] [place] [address] Care Team Providers Care Solar Sales Specialist Name Role Phone Adis Mcdermott MD Primary Care Provider Encounter Details Date Type Department Care Team (Late st Contact Info) Description 09/01/[address] 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 on face. HISTORY: HISTORY: 692.9-ECZEMA ongoing on fingers 782.1-RASH around mouth worse on left, irritated, mild itch PHYSICAL EXAMINATION: EARS, NOSE, MOUTH AND THROAT: ORAL: cracking left lateral, small lesions, no vesicles RESPIRATORY: Clear to auscultation and percussion. Normal respiratory effort. CARDIOVASCULAR: CARDIAC: Regular rhythm. No murmurs, rubs, or gallops. SKIN: eczema on fingers, mouth as above ASSESSMENT/PLAN: 692.9-ECZEMA discussed, refill cream for hands 782.1-RASH suspect perioral dematitis, cannot r/o other ie H simplex, rx, reassess MEDICATIONS: DOXYCYCLINE HYCLATE ORAL TABLET 100 MG, 1 Two Times A Day, 20 Dispensed, status: NEW PRESCRIPTION, 09/01/2006. VALTREX ORAL TABLET 500 MG, 1 Two Times A Day, 10 Dispensed, status: NEW PRESCRIPTION, 09/01/2006. CLINDAMYCIN PHOSPHATE EXTERNAL LOTION 1 %, 1 Two Times A Day, 30 Dispensed, status: NEW PRESCRIPTION, 09/01/2006. RETURN VISIT : Instructed to call if not improving. Electronically Signed by: Adis Mcdermott MD on Friday, September 01, 2006 * Adis Mcdermott MD - 09/17/2007 8:45 AM CDT TIME:03:52 pm PATIENT`S HOME PHONE: PATIENT`S WORK PHONE: PATIENT`S INSURANCE: [employer] [facility] WHO TOOK THE CALL: Nadira Clay C GENERAL INFORMATION ALTERNATIVE PHONE NUMBER: [phone] WHO CALLED: Patient called. PROBLEMS: Was here today was given meds can she mccallum in tanning bed? SECTION 1: REQUESTED ACTION paz 09/01/06 at 03:54 pm: NEXT STEP: Patient is no better and wants to know the next step. DOCTOR`S RESPONSE: susan 09/01/06 at 04:04 pm no--will burn FINAL ACTION: hilary 09/01/06 at 04:27 pm Spoke with patient 09/01/06 at 05:35 pm. Left message on patient`s recorder or with a family member 09/01/2006 at 04:27 pm. Electronically Signed by: Emerald Sandoval on Friday, September 01, 2006 documented in this encounter Plan of Treatment Not on file documented as of this encounter Visit Diagnoses Not on filedocumented in this encounter Care Teams Solar Sales Specialist Relationship Specialty Start Date End Date Adis Mcdermott MD PCP - General Internal Medicine 07/08/14 documented as of this encounter
--- OUTSIDE RECORDS SUMMARY | 2024-08-18 10:26 | XMS_ITS | Encounter Summary ---
Author Organization [employer] Address 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
--- OUTSIDE RECORDS SUMMARY | 2024-08-18 10:26 | XMS_ITS | Encounter Summary ---
Author Organization [facility] Address 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 CHIEF COMPLAINT Patient here for follow up Gastroesophageal Reflex Disease (GERD). HISTORY: Pt long hx of gerd now worse, occ nsaid use, occ etoh use, occ chocolate, prevacid was controlling in past, has had egd x 2 ROS: ENDOCRINE: No heat or cold intolerance, no excessive thirst. CARDIAC: No chest pain, palpitations, orthopnea, dyspnea on exertion, or paroxysmal nocturnal dyspnea. RESPIRATORY: No dyspnea, cough, hemoptysis or wheezing. : No frequency, urgency, hematuria or dysuria. GI: No abdominal pain, nausea, vomiting, diarrhea, constipation, melena, or hematochezia. SOCIAL HISTORY: TOBACCO USE: Has no significant smoking history. DISCUSSED SMOKING: neg. ALCOHOL: Does not give any significant history of alcohol usage. DISCUSSED ALCOHOL: minimal. PHYSICAL EXAMINATION: CONSTITUTIONAL: GENERAL APPEARANCE: Healthy appearing patient in no distress. EARS, NOSE, MOUTH AND THROAT: EARS: Tympanic membranes shiny without retraction. Canals unremarkable.scarring ORAL: Inspection of gums, lips, palate, and teeth normal. No scars, lesions, or masses. Oral mucosaunremarkable with non-inflamed posterior pharynx. NECK/THYROID: Trachea midline. No thyroid enlargement, tenderness, or mass. No supraclavicular or cervical adenopathy. RESPIRATORY: Clear to auscultation and percussion. Normal respiratory effort. CARDIOVASCULAR: CARDIAC: Regular rhythm. No murmurs, rubs, or gallops. ARTERIAL: No aortic bruits. EDEMA/VARICOSITIES OF EXTREMITIES: No edema or varicosities. GASTROINTESTINAL: ABDOMEN: Soft, non-tender, without masses. Bowel sounds active. LIVER/SPLEEN/KIDNEY: No hepatosplenomegaly, tenderness or nodularity. Kidneys not palpable. ASSESSMENT/PLAN: 493.90-ASTHMA UNSPECIFIED stable, rec flu vaccine 530.81-GASTROESOPHAGEAL REFLUX (GERD) try alt med, reassess, reviewed lifestyle modifications,no etoh, no nsaids,dec chocolate , elevate head of bed etc, reassess MEDICATIONS: ACIPHEX ORAL TABLET ENTERIC COATED 20 MG, 1 Every Day, 40 Dispensed, status: NEW PRESCRIPTION, 01/27/2007. bid x 1 week then qd RETURN VISIT : Instructed to call if not improving. Electronically Signed by: Adis Mcdermott MD on Saturday, January 27, 2007 documented in this encounter Plan of Treatment Not on file documented as of this encounter Visit Diagnoses Not on filedocumented in this encounter Care Teams Quirk Sander Relationship Specialty Start Date End Date Adis Mcdermott MD PCP - General Internal Medicine 07/08/14 documented as of this encounter
--- OUTSIDE RECORDS SUMMARY | 2024-08-18 10:26 | XMS_ITS | Encounter Summary ---
Author Organization [facility] Address 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
--- OUTSIDE RECORDS SUMMARY | 2024-08-18 10:26 | XMS_ITS | Encounter Summary ---
Author Organization [facility] Address [address] [place] [address] Care Team Providers Care Sprinkler Driver Name Role Phone Adis Mcdermott MD Primary Care Provider [phone] Encounter Details Date Type Department Care Team (Late st Contact Info) Description 09/01/2006 Outpatient Historical [facility] Internal Medicine [address] [address] Adis Mcdermott MD [address] [place] [phone] Social History Tobacco Use Types Packs/Day Years Used Date Smoking Tobacco: Never Assessed Comments Unknown Sex and Gender Information Value Date Recorded Sex Assigned at Not on file Legal Sex Female 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 Gender Identity Not on file Sexual Orientation Not on file documented as of this encounter Last Filed Vital Signs Vital Sign Reading Time Taken Comments Blood Pressure 110/70 09/01/2006 3:15 PM CDT Pulse - - Temperature - - Respiratory Rate - - Oxygen Saturation - - Inhaled Oxygen Concentration - - Weight 65.3 kg (144 lb) 09/01/2006 3:15 PM CDT Height - - Body Mass Index - - documented in this encounter Plan of Treatment Not on file documented as of this encounter Visit Diagnoses Not on filedocumented in this encounter Care Teams Sprinkler Driver Relationship Specialty Start Date End Date Adis Mcdermott MD PCP - General Internal Medicine 07/08/14 documented as of this encounter
--- OUTSIDE RECORDS SUMMARY | 2024-08-18 10:26 | XMS_ITS | Encounter Summary ---
Author Organization [facility] Address 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
--- OUTSIDE RECORDS SUMMARY | 2024-08-18 10:26 | XMS_ITS | Encounter Summary ---
Author Organization [facility] Address 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 Gender Identity Not on file Sexual Orientation Not on file documented as of this encounter Last Filed Vital Signs Vital Sign Reading Time Taken Comments Blood Pressure 112/70 01/27/2007 10:45 AM CDT Pulse - - Temperature - - Respiratory Rate - - Oxygen Saturation - - Inhaled Oxygen Concentration - - Weight 62.6 kg (138 lb) 01/27/2007 10:45 AM CDT Height - - Body Mass Index - - documented in this encounter Plan of Treatment Not on file documented as of this encounter Visit Diagnoses Not on filedocumented in this encounter Care Teams Director International Relationship Specialty Start Date End Date Adis Mcdermott MD PCP - General Internal Medicine 07/08/14 documented as of this encounter
--- OUTSIDE RECORDS SUMMARY | 2024-08-18 10:26 | XMS_ITS | Encounter Summary ---
Author Organization [facility] Address [address] [place] [address] Care Team Providers Care Mold Unloader Name Role Phone Adis Mcdermott MD Primary Care Provider [phone] Encounter Details Date Type Department Care Team (Late st Contact Info) Description 03/04/2006 Outpatient Historical [facility] Internal Medicine [address] [address] Adis Mcdermott MD [address] [place] [phone] Social History Tobacco Use Types Packs/Day Years Used Date Smoking Tobacco: Never Assessed Comments Unknown Sex and Gender Information Value Date Recorded Sex Assigned at Not on file 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
--- OUTSIDE RECORDS SUMMARY | 2024-08-18 10:26 | XMS_ITS | Encounter Summary ---
Author Organization [facility] Address 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 ALTERNATIVE PHONE NUMBER: [phone] PHARMACY NUMBER: [phone] SECTION 1: REQUESTED ACTION browss 05/24/05 at 01:58 pm: MEDICATION REQUEST: MEDICATION REQUEST: Patient requests a refill. Prevacid -pt is between ins. and need to make an appt with gastro, she would like for you to refill her Prevacid DOCTOR`S RESPONSE: susan 05/24/05 at 02:08 pm MEDICATIONS: PREVACID ORAL CAPSULE DELAYED RELEASE 30 MG, 1 Every Day, 90 Dispensed, 1 Fills, 90 Duration/Days Supply, status: NEW PRESCRIPTION, 05/24/2005. FINAL ACTION: browss 05/24/05 at 02:44 pm Called pharmacy at 05/24/05 at 02:44 pm. documented in this encounter Plan of Treatment Not on file documented as of this encounter Visit Diagnoses Not on filedocumented in this encounter Care Teams Quill Skinner Relationship Specialty Start Date End Date Adis Mcdermott MD PCP - General Internal Medicine 07/08/14 documented as of this encounter
--- OUTSIDE RECORDS SUMMARY | 2024-08-18 10:26 | XMS_ITS | Encounter Summary ---
Author Organization [facility] Address [address] [place] [address] Care Team Providers Care Family Services Assistant Name Role Phone Debbie Sharma MD Unavailable [phone] Adis Mcdermott MD Primary Care Provider Encounter Details Date Type Department Care Team (Late st Contact Info) Description 11/13/2023 Lab Requisition [facility] - DermPath Lab [address] [place] [address] Alex Carrasquillo MD [address] [address] Social History Tobacco Use Types Packs/Day Years Used Date Smoking Tobacco: Never Smokeless Tobacco: Never Alcohol Use Standard Drinks/Week Comments Yes 0 (1 standard drink = 0.6 oz pur e alcohol) occassionally Comments No Sex and Gender Information Value Date Recorded Sex Assigned at Not on file Legal 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 Female 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 Gender Identity Not on file Sexual Orientation Not on file documented as of this encounter Plan of Treatment Not on file documented as of this encounter Procedures Procedure Name Priority Date/Time Associated Diagnosis Comments DERMATOPATHOLOGY Routine 11/12/2023 12:0 0 AM CDT documented in this encounter Results * DERMATOPATHOLOGY (11/12/2023 12:00 AM CDT) Case Report Dermatopathology Report Case: [id number] Authorizing Provider: Alex Carrasquillo MD Collected: 11/12/2023 12:00 AM Ordering Location: [facility] - Received: 11/13/2023 11:16 AM DermPath Lab Pathologist: Shelia Marie MD Specimen: Skin, left upper posterior leg 4:50 PM CDT DERMATOPATHOLOGY LABORATORY Final Diagnosis Specimen A. SKIN, left upper posterior leg: DERMATOFIBROMA, ANEURYSMAL (D23.9) 4:50 PM CDT DERMATOPATHOLOGY LABORATORY Clinical History Dermatofibroma, nevus, r/o atypical melanocytic lesion 4:50 PM CDT DERMATOPATHOLOGY LABORATORY Gross Description Specimen A: Received is one formalin filled container labeled with the patient's name and designated left upper posterior leg. The specimen consists of a shave biopsy measuring 4x3x1 mm. Jar 0. 4:50 PM CDT DERMATOPATHOLOGY LABORATORY Microscopic Description Specimen A. SKIN, left upper posterior leg: There is epidermal hyperplasia. Within the dermis, there are fibrohistiocytic cells in haphazard array among coarse collagen bundles. In addition, there are vascular channels surrounded by histiocytes that contain hemosiderin and foam cells. 4:50 PM CDT DERMATOPATHOLOGY LABORATORY Disclaimer An external and internal positive and negative controls are appropriate for the histochemical, immunohistochemical and immunofluorescence stain(s) in this case (if any), except where stated explicitly. The performance characteristics of the stain(s) cited in this report were developed and its performance characteristic determined by the Dermatopathology Laboratory at [facility], directed by Dr. Gloria Marie. These tests need not be, and therefore are not, approved by the [place] Food and Drug Administration. The tests are used for clinical purposes. Billing Codes Specimen Charges Stain Charges 19235 1 4:50 PM CDT DERMATOPATHOLOGY LABORATORY Embedded Images 4:50 PM CDT DERMATOPATHOLOGY LABORATORY Pathology/Cytolog y TISSUE SPECIMEN FROM SKIN / Unknown 11/12/2023 11/13/2023 11:16 AM CDT Alex Carrasquillo MD LAB - PATHOLOGY/CYTOLOGY ORDERAB LES Final Result DERMATOPATHOLOGY LABORATORY [facility] - Department of Dermatology [facility] Medicine [facility], [address]rd Floor [address] [phone] documented in this encounter Visit Diagnoses Not on filedocumented in this encounter Care Teams Family Services Assistant Relationship Specialty [place] [address] [place] [address] PCP - General Internal Medicine 09/26/17 [place] [address] [place] [address] Financial Coordinator Obstetrics and Gynecology 11/16/12 documented as of this encounter
--- OUTSIDE RECORDS SUMMARY | 2024-08-18 10:26 | XMS_ITS | Patient Health Record ---
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 Phone Lydia Chavez Primary Care Provider [phone] Migration, Provider Unavailable Unavailable Results Component Value Reference Range Notes COMPREHENSIVE METABOLIC PANE L Reviewed date:08/25/2023 11:04:20 AM Interpretation: Performing Lab:[facility], [address] [place], [address] Katia Lees Notes/Report: FASTING:YES FASTING: YES ACTH, PLASMA Reviewed date:09/02/2023 09:47:53 AM Interpretation: Performing Lab:Ramon VALADEZ/Aryan [facility], [address], [place], [address] Demian Navarro M.D.,PhD Notes/Report: FASTING:YES FASTING: YES CORTISOL, TOTAL Reviewed date:08/25/2023 11:04:02 AM Interpretation: Performing Lab:Ramon HARRIS[facility], [address] [place], [address] Katia Lees MD Notes/Report: FASTING:YES FASTING: YES ESTRADIOL Reviewed date:08/25/2023 12:44:53 PM Interpretation: Performing Lab:[facility]amon [facility], [address] [place], [address] Katia Lees Notes/Report: FASTING:YES FASTING: YES FSH AND LH Reviewed date:08/25/2023 12:45:13 PM Interpretation: Performing Lab:Ramon HARRIS-[place], [address] [place], [address] Katia Lees MD Notes/Report: FASTING:YES FASTING: YES PROGESTERONE Reviewed date:08/25/2023 12:45:27 PM Interpretation: Performing Lab:TAYLOR, [facility], [address] , [place], [address] SaraDiamond Lees Notes/Report: FASTING:YES FASTING: YES PROLACTIN Reviewed date:08/25/2023 12:45:03 PM Interpretation: Performing Lab:KS, Ramon [facility], [address], [place], [address] Katia Lees MD Notes/Report: FASTING:YES FASTING: YES TESTOSTERONE, TOTAL, MS Reviewed date:08/25/2023 12:44:41 PM Interpretation: Performing Lab:Z3Saira, [facility], [address] [place] [address], [address], [place], [address] Blake Gonzalez MD,PhD Notes/Report: FASTING:YES FASTING: YES TESTOSTERONE, TOTAL, MS 16 2-45 ng/dL For additional information, please refer to https://education.XINTEC/faq/TotalTestoste roneLCMSMS (This link is being provided for informational/educational purposes only.) (Note) This test was developed and its analytical performance characteristics have been determined by [employer]. It has not been cleared or approved by the FDA. This assay has been validated pursuant to the CLIA regulations and is used for clinical purposes. [facility] [address] [place] [address],[address] [facility] [address] Blake Gonzalez MD, PhD COMPREHENSIVE METABOLIC PANE L Reviewed date:10/12/2023 02:08:22 PM Interpretation: Performing Lab:[facility], [address] , [place], [address] SaraDiamond Lees Notes/Report: FASTING:YES FASTING: YES ACTH, PLASMA Reviewed date:10/12/2023 02:07:57 PM Interpretation: Performing Lab:[facility], [address], [place], [address] Demian Navarro M.D.,PhD Notes/Report: FASTING:YES FASTING: YES T3, FREE Reviewed date:10/12/2023 02:07:28 PM Interpretation: Performing Lab:Ramon HARRIS[facility], [address], [place], [address] Katia Lees MD Notes/Report: FASTING:YES FASTING: YES CORTISOL, TOTAL Reviewed date:10/12/2023 02:07:44 PM Interpretation: Performing Lab:Ramon HARRIS[facility], [address], [place], [address] Katia Lees MD Notes/Report: FASTING:YES FASTING: YES CBC (INCLUDES DIFF/PLT) Reviewed date:10/08/2023 02:52:54 PM Interpretation: Performing Lab:[facility], [address] , [place], [address] Katia Lees Notes/Report: FASTING:YES FASTING: YES VITAMIN B12/FOLATE, SERUM PA HECTOR Reviewed date:10/12/2023 02:07:35 PM Interpretation: Performing Lab:Ramon HARRIS[facility], [address], [place], [address] Katia Lees MD Notes/Report: FASTING:YES FASTING: YES IRON AND TOTAL IRON BINDING CAPACITY Reviewed date:10/08/2023 02:16:00 PM Interpretation: Performing Lab:Ramon HARRIS[facility], [address], [place], [address] Katia Lees MD Notes/Report: FASTING:YES FASTING: YES T4, FREE Reviewed date:10/08/2023 02:15:51 PM Interpretation: Performing Lab:Ramon HARRIS[facility], [address], [place], [address] Katia Lees MD Notes/Report: FASTING:YES FASTING: YES TSH Reviewed date:10/08/2023 02:52:22 PM Interpretation: Performing Lab:[facility]OR [facility], [address] [place], [address] Katia Lees Notes/Report: FASTING:YES FASTING: YES MAGNESIUM, RBC Reviewed date:10/14/2023 09:37:06 PM Interpretation: Performing Lab:ONI[facility], [address] , [place], [address] Tai Story M.D. Notes/Report: FASTING:YES FASTING: YES MAGNESIUM, RBC 5.3 4.0-6.4 mg/dL This test was developed and its analytical performance characteristics have been determined by [employer]. It has not been cleared or approved by the FDA. This assay has been validated pursuant to the CLIA regulations and is used for clinical purposes. LIPID PANEL (REFL) Reviewed date:11/11/2023 08:22:14 PM Interpretation: Performing Lab:STEVEN [facility], [address] [place], [address] Katia Lees MD Notes/Report: CHOLESTEROL, TOTAL 245 <200 mg/dL HDL CHOLESTEROL 63 > OR = 50 mg/dL TRIGLYCERIDES 83 <150 mg/dL LDL-CHOLESTEROL 163 Reference range: <100 Desirable range <100 mg/dL for primary prevention; <70 mg/dL for patients with CHD or diabetic patients with > or = 2 CHD risk factors. LDL-C is now calculated using the Casey-La calculation, which is a validated novel method providing better accuracy than the Friedewald equation in the estimation of LDL-C. Casey SS et al. PEREZ. 2013;310(19): 4100-5729 (http://education.miLibris.Sidecar.me/faq/HBN967) CHOL/HDLC RATIO 3.9 <5.0 (calc) NON HDL CHOLESTEROL 182 <130 mg/dL (calc) For patients with diabetes plus 1 major ASCVD risk factor, treating to a non-HDL-C goal of <100 mg/dL (LDL-C of <70 mg/dL) is considered a therapeutic option. COMPREHENSIVE METABOLIC PANE L Reviewed date:01/25/2024 08:01:16 PM Interpretation: Performing Lab:[facility]YLOR [facility], [address], [place], [address] Katia Lees Notes/Report: FASTING:YES FASTING: YES ACTH, PLASMA Reviewed date:01/26/2024 09:30:39 PM Interpretation: Performing Lab:Ramon VALADEZ/Aryan [facility], [address] [facility] , [place], [address] Demian Navarro M.D.,PhD Notes/Report: FASTING:YES FASTING: YES LIPID PANEL (REFL) Reviewed date:01/25/2024 08:00:48 PM Interpretation: Performing Lab:Ramon HARRIS, [address] [place], [address] Katia Lees MD Notes/Report: FASTING:YES FASTING: YES CHOLESTEROL, TOTAL 250 <200 mg/dL HDL CHOLESTEROL 77 > OR = 50 mg/dL TRIGLYCERIDES 69 <150 mg/dL LDL-CHOLESTEROL 157 Reference range: <100 Desirable range <100 mg/dL for primary prevention; <70 mg/dL for patients with CHD or diabetic patients with > or = 2 CHD risk factors. LDL-C is now calculated using the Casey-Abhinav calculation, which is a validated novel method providing better accuracy than the Friedewald equation in the estimation of LDL-C. Casey SS et al. PEREZ. 2013;310(19): 0900-1518 (http://education.Upptalk/faq/UKK818) CHOL/HDLC RATIO 3.2 <5.0 (calc) NON HDL CHOLESTEROL 173 <130 mg/dL (calc) For patients with diabetes plus 1 major ASCVD risk factor, treating to a non-HDL-C goal of <100 mg/dL (LDL-C of <70 mg/dL) is considered a therapeutic option. CORTISOL, TOTAL Reviewed date:01/25/2024 08:01:52 PM Interpretation: Performing Lab:Ramon HARRIS, [address] [place], [address] Katia Lees MD Notes/Report: FASTING:YES FASTING: YES DHEA SULFATE Reviewed date:01/25/2024 08:02:00 PM Interpretation: Performing Lab:Ramon HARRIS, [address] [place], [address] Katia Lees MD Notes/Report: FASTING:YES FASTING: YES ESTRADIOL Reviewed date:01/25/2024 08:02:41 PM Interpretation: Performing Lab:[facility], [address], [place], [address] Katia Lees Notes/Report: FASTING:YES FASTING: YES LH Reviewed date:01/25/2024 08:02:08 PM Interpretation: Performing Lab:Ramon HARRIS, [address], [place], [address] Katia Lees MD Notes/Report: FASTING:YES FASTING: YES MAGNESIUM Reviewed date:01/25/2024 08:00:57 PM Interpretation: Performing Lab:Ramon VAZQUEZ[facility], [address] , [place], [address] Katia Lees Notes/Report: FASTING:YES FASTING: YES CBC (INCLUDES DIFF/PLT) Reviewed date:01/25/2024 08:01:44 PM Interpretation: Performing Lab:Ramon VAZQUEZ[facility], [address] , [place], [address] Katia Lees Notes/Report: FASTING:YES FASTING: YES PROGESTERONE Reviewed date:01/25/2024 08:02:16 PM Interpretation: Performing Lab:Ramon VAZQUEZ[facility], [address] [place], [address] Katia Lees Notes/Report: FASTING:YES FASTING: YES IRON AND TOTAL IRON BINDING CAPACITY Reviewed date:01/25/2024 08:00:36 PM Interpretation: Performing Lab:Ramon HARRIS[facility], [address], [place], [address] Katia Lees MD Notes/Report: FASTING:YES FASTING: YES T4, FREE Reviewed date:01/25/2024 08:02:26 PM Interpretation: Performing Lab:Ramon VAZQUEZ [facility], [address] [place], [address] Katia Lees Notes/Report: FASTING:YES FASTING: YES TSH Reviewed date:02/03/2024 10:50:31 PM Interpretation: Performing Lab:Ramon [facility]ZQUEZ[facility], [address] [place], [address] Katia Lees Notes/Report: FASTING:YES FASTING: YES DEXAMETHASONE Reviewed date:04/30/2024 11:01:29 AM Interpretation: Performing Lab:Ramon HAMM/Aryan [facility],, [address] [place], [address] Loli Bueno MD,PhD,ADAM Notes/Report: DEXAMETHASONE 202 Reference Ranges for Dexamethasone: Baseline: Less than 20 ng/dL 1 mg dexamethasone overnight: 180-550 ng/dL (8:00-10:00 AM) This test was developed and its analytical performance characteristics have been determined by [employer]. It has not been cleared or approved by FDA. This assay has been validated pursuant to the CLIA regulations and is used for clinical purposes. CORTISOL, TOTAL Reviewed date:04/25/2024 11:51:01 AM Interpretation: Performing Lab:Ramon HARRIS[facility], [address] [place], [address] Katia Lees MD Notes/Report: COMPREHENSIVE METABOLIC PANE L Reviewed date:04/28/2024 10:10:49 AM Interpretation: Performing Lab:Ramon HARRIS, [address] [place], [address] Katia Lees MD Notes/Report: FASTING:YES COLLECTION KIT GIVEN TO PATIENT. PATIENT ADVISED TO RETURN. FASTING: YES CYCLIC CITRULLINATED PEPTIDE (CCP) AB (IGG) Reviewed date:05/04/2024 04:02:34 PM Interpretation: Performing Lab:Ramon HARRIS[facility], [address], [place], [address] Katia Lees MD Notes/Report: FASTING:YES COLLECTION KIT GIVEN TO PATIENT. PATIENT ADVISED TO RETURN. FASTING: YES VITAMIN D, 25-HYDROXY, LC/MS /MS Reviewed date:04/28/2024 10:10:49 AM Interpretation: Performing Lab:Ramon HARRIS, [address] [place], [address] Katia Lees MD Notes/Report: FASTING:YES COLLECTION KIT GIVEN TO PATIENT. PATIENT ADVISED TO RETURN. FASTING: YES ACTH, PLASMA Reviewed date:05/04/2024 03:45:26 PM Interpretation: Performing Lab:Ramon VALADEZ[facility] [place] [facility] [place], [address] [place], [address] Demian Navarro M.D.,PhD Notes/Report: FASTING:YES COLLECTION KIT GIVEN TO PATIENT. PATIENT ADVISED TO RETURN. FASTING: YES MAGUI IFA SCREEN W/REFL TO TIT ER AND PATTERN, IFA Reviewed date:05/07/2024 05:37:57 PM Interpretation: Performing Lab:STEVEN, [facility]on [facility], [address] [place], [address] Katia Lees MD Notes/Report: FASTING:YES COLLECTION KIT GIVEN TO PATIENT. PATIENT ADVISED TO RETURN. FASTING: YES LIPID PANEL (REFL) Reviewed date:04/28/2024 10:10:49 AM Interpretation: Performing Lab:Ramon HARRIS[facility], [address] [place], [address] Katia Lees MD Notes/Report: FASTING:YES COLLECTION KIT GIVEN TO PATIENT. PATIENT ADVISED TO RETURN. FASTING: YES CHOLESTEROL, TOTAL 253 <200 mg/dL HDL CHOLESTEROL 66 > OR = 50 mg/dL TRIGLYCERIDES 112 <150 mg/dL LDL-CHOLESTEROL 164 Reference range: <100 Desirable range <100 mg/dL for primary prevention; <70 mg/dL for patients with CHD or diabetic patients with > or = 2 CHD risk factors. LDL-C is now calculated using the Casey-La calculation, which is a validated novel method providing better accuracy than the Friedewald equation in the estimation of LDL-C. Casey SS et al. PEREZ. 2013;310(19): 8668-7145 (http://education.miLibris.Sidecar.me/faq/EGT027) CHOL/HDLC RATIO 3.8 <5.0 (calc) NON HDL CHOLESTEROL 187 <130 mg/dL (calc) For patients with diabetes plus 1 major ASCVD risk factor, treating to a non-HDL-C goal of <100 mg/dL (LDL-C of <70 mg/dL) is considered a therapeutic option. T3, FREE Reviewed date:04/28/2024 10:10:49 AM Interpretation: Performing Lab:STEVEN [facility], [address] [place], [address] Katia Lees MD Notes/Report: FASTING:YES COLLECTION KIT GIVEN TO PATIENT. PATIENT ADVISED TO RETURN. FASTING: YES DHEA SULFATE Reviewed date:04/28/2024 10:10:49 AM Interpretation: Performing Lab:Ramon HARRIS[facility], [address], [place], [address] Katia Lees MD Notes/Report: FASTING:YES COLLECTION KIT GIVEN TO PATIENT. PATIENT ADVISED TO RETURN. FASTING: YES ESTRADIOL Reviewed date:04/28/2024 10:10:49 AM Interpretation: Performing Lab:Ramon HARRIS[facility], [address], [place], [address] Katia Lees MD Notes/Report: FASTING:YES COLLECTION KIT GIVEN TO PATIENT. PATIENT ADVISED TO RETURN. FASTING: YES RHEUMATOID FACTOR Reviewed date:04/28/2024 10:10:49 AM Interpretation: Performing Lab:Ramon HARRIS[facility], [address], [place], [address] Katia Lees MD Notes/Report: FASTING:YES COLLECTION KIT GIVEN TO PATIENT. PATIENT ADVISED TO RETURN. FASTING: YES C-REACTIVE PROTEIN Reviewed date:04/28/2024 10:10:49 AM Interpretation: Performing Lab:Ramon HARRIS-[place], [address], [place], [address] Katia Lees MD Notes/Report: FASTING:YES COLLECTION KIT GIVEN TO PATIENT. PATIENT ADVISED TO RETURN. FASTING: YES FERRITIN Reviewed date:04/28/2024 10:10:49 AM Interpretation: Performing Lab:Ramon HARRIS[facility], [address], [place], [address] Katia Lees MD Notes/Report: FASTING:YES COLLECTION KIT GIVEN TO PATIENT. PATIENT ADVISED TO RETURN. FASTING: YES FSH Reviewed date:04/28/2024 10:10:49 AM Interpretation: Performing Lab:Ramon HARRIS-[place], [address], [place], [place], [address] Katia Lees MD Notes/Report: FASTING:YES COLLECTION KIT GIVEN TO PATIENT. PATIENT ADVISED TO RETURN. FASTING: YES HEMOGLOBIN A1c Reviewed date:04/28/2024 10:10:49 AM Interpretation: Performing Lab:[facility], [address], [place], [address] SaraDiamond Lees Notes/Report: FASTING:YES COLLECTION KIT GIVEN TO PATIENT. PATIENT ADVISED TO RETURN. FASTING: YES INSULIN Reviewed date:04/28/2024 10:10:49 AM Interpretation: Performing Lab:Ramon HARRIS[facility], [address], [place], [address] Katia Lees MD Notes/Report: FASTING:YES COLLECTION KIT GIVEN TO PATIENT. PATIENT ADVISED TO RETURN. FASTING: YES LH Reviewed date:04/28/2024 10:10:49 AM Interpretation: Performing Lab:Ramon HARRIS-[place], [address], [place], [address] Katia Lees MD Notes/Report: FASTING:YES COLLECTION KIT GIVEN TO PATIENT. PATIENT ADVISED TO RETURN. FASTING: YES MAGNESIUM Reviewed date:04/28/2024 10:10:49 AM Interpretation: Performing Lab:Ramon HARRIS-[place], [address], [place], [address] Katia Lees MD Notes/Report: FASTING:YES COLLECTION KIT GIVEN TO PATIENT. PATIENT ADVISED TO RETURN. FASTING: YES CBC (INCLUDES DIFF/PLT) Reviewed date:04/28/2024 10:10:49 AM Interpretation: Performing Lab:Ramon HARRIS-[place], [address], [place], [address] Katia Lees MD Notes/Report: FASTING:YES COLLECTION KIT GIVEN TO PATIENT. PATIENT ADVISED TO RETURN. FASTING: YES VITAMIN B12/FOLATE, SERUM PA HECTOR Reviewed date:04/28/2024 10:10:49 AM Interpretation: Performing Lab:Ramon HARRIS-[place], [address], [place], [address] Katia eLes MD Notes/Report: FASTING:YES COLLECTION KIT GIVEN TO PATIENT. PATIENT ADVISED TO RETURN. FASTING: YES PROGESTERONE Reviewed date:04/28/2024 10:10:49 AM Interpretation: Performing Lab:Ramon HARRIS-[place], [address], [place], [address] Katia Lees MD Notes/Report: FASTING:YES COLLECTION KIT GIVEN TO PATIENT. PATIENT ADVISED TO RETURN. FASTING: YES IRON AND TOTAL IRON BINDING CAPACITY Reviewed date:04/28/2024 10:10:49 AM Interpretation: Performing Lab:Ramon HARRIS-[place], [address], [place], [place], [address] Katia Lese MD Notes/Report: FASTING:YES COLLECTION KIT GIVEN TO PATIENT. PATIENT ADVISED TO RETURN. FASTING: YES SED RATE BY MODIFIED THORERG ROSE Reviewed date:04/28/2024 10:10:49 AM Interpretation: Performing Lab:Ramon HARRIS[facility], [address], [place], [address] Katia Lees MD Notes/Report: FASTING:YES COLLECTION KIT GIVEN TO PATIENT. PATIENT ADVISED TO RETURN. FASTING: YES T4, FREE Reviewed date:04/28/2024 10:10:49 AM Interpretation: Performing Lab:Ramon HARRIS[facility], [address], [place], [address] Katia Lees MD Notes/Report: FASTING:YES COLLECTION KIT GIVEN TO PATIENT. PATIENT ADVISED TO RETURN. FASTING: YES TSH Reviewed date:04/28/2024 10:10:50 AM Interpretation: Performing Lab:Ramon HARRIS[facility], [address], [place], [address] Katia Lees MD Notes/Report: FASTING:YES COLLECTION KIT GIVEN TO PATIENT. PATIENT ADVISED TO RETURN. FASTING: YES THYROID PEROXIDASE ANTIBODIE S Reviewed date:05/04/2024 04:02:26 PM Interpretation: Performing Lab:CB, [facility], [address] [facility], [place], [address] Juliano Lujan Notes/Report: FASTING:YES COLLECTION KIT GIVEN TO PATIENT. PATIENT ADVISED TO RETURN. FASTING: YES THYROID PEROXIDASE ANTIBODIES <1 <9 IU/mL TESTOSTERONE, FREE (DIALYSIS ) AND TOTAL,MS Reviewed date:05/04/2024 03:54:07 PM Interpretation: Performing Lab:Z3E, [facility], [address] [address], [address], [place], [address] Blake Gonzalez MD,PhD Notes/Report: FASTING:YES COLLECTION KIT GIVEN TO PATIENT. PATIENT ADVISED TO RETURN. FASTING: YES TESTOSTERONE, TOTAL, MS 15 2-45 ng/dL For additional information, please refer to https://education.XINTEC/faq/VQL350 (This link is being provided for informational/educational purposes only.) (Note) This test was developed and its analytical performance characteristics have been determined by [employer]. It has not been cleared or approved by the FDA. This assay has been validated pursuant to the CLIA regulations and is used for clinical purposes. TESTOSTERONE, FREE 1.6 0.1-6.4 pg/mL (Note) This test was developed and its analytical performance characteristics have been determined by [employer]. It has not been cleared or approved by the FDA. This assay has been validated pursuant to the CLIA regulations and is used for clinical purposes. [facility] [address] [address],[address] [place] [address] Blake Gonzalez MD, PhD CORTISOL, FREE, 24 HOUR URIN E Reviewed date:05/29/2024 05:52:37 PM Interpretation: Performing Lab:EZ, [facility],, [address] [place], [address] Loli Bueno MD,PhD,ADAM Notes/Report: URINE VOLUME: 2000/24 TOTAL VOLUME 2000 CORTISOL, FREE, URINE 29.6 4.0-50.0 mcg/24 h CORTISOL, FREE, URINE 18.3 Reference Range: ADULTS: 3.1-42.3 CREATININE, URINE 1.62 0.50-2.15 g/24 h This test was developed and its analytical performance characteristics have been determined by [employer]. It has not been cleared or approved by FDA. This assay has been validated pursuant to the CLIA regulations and is used for clinical purposes. CORTISOL, LC/MS, SALIVA, 2 S AMPLES Reviewed date:05/27/2024 06:00:56 PM Interpretation: Performing Lab:EZ, [facility],, [address] [place], [address] Loli Bueno MD,PhD,ADAM Notes/Report: URINE VOLUME: DRAW DATE 1 05/19/2024 DRAW TIME 1 0000 CORTISOL, SALIVA SAMPLE 1 0.14 8-10 AM: 0.04-0.56 mcg/dL noon-2 PM: < OR = 0.21 mcg/dL 4-6 PM: < OR = 0.15 mcg/dL 10 PM-1 AM: < OR = 0.09 mcg/dL This test was developed and its analytical performance characteristics have been determined by [employer]. It has not been cleared or approved by FDA. This assay has been validated pursuant to the CLIA regulations and is used for clinical purposes. DRAW DATE 2 05/20/2024 DRAW TIME 2 0000 CORTISOL, SALIVA SAMPLE 2 0.05 8-10 AM: 0.04-0.56 mcg/dL noon-2 PM: < OR = 0.21 mcg/dL 4-6 PM: < OR = 0.15 mcg/dL 10 PM-1 AM: < OR = 0.09 mcg/dL This test was developed and its analytical performance characteristics have been determined by [employer]. It has not been cleared or approved by FDA. This assay has been validated pursuant to the CLIA regulations and is used for clinical purposes. ESTRADIOL (Not yet reviewed by provider) Interpretation: Performing Lab:[facility], [address] [place], [address] Katia Lees MD Notes/Report: FASTING:YES PATIENT REFUSED SOME TESTING; PATIENT ENCOURAGED TO RETURN. FASTING: YES PROGESTERONE (Not yet review ed by provider) Interpretation: Performing Lab:[facility], [address] [place], [address] Katia Lees MD Notes/Report: FASTING:YES PATIENT REFUSED SOME TESTING; PATIENT ENCOURAGED TO RETURN. FASTING: YES TESTOSTERONE, FREE (DIALYSIS ) AND TOTAL,MS (Not yet reviewed by provider) Interpretation: Performing Lab:Z3E, [facility], [address] [place] [address], [address], [place], [address] Blake Gonzalez MD,PhD Notes/Report: FASTING:YES PATIENT REFUSED SOME TESTING; PATIENT ENCOURAGED TO RETURN. FASTING: YES TESTOSTERONE, TOTAL, MS 39 2-45 ng/dL For additional information, please refer to https://education.XINTEC/faq/MDR547 (This link is being provided for informational/educational purposes only.) (Note) This test was developed and its analytical performance characteristics have been determined by [employer]. It has not been cleared or approved by the FDA. This assay has been validated pursuant to the CLIA regulations and is used for clinical purposes. TESTOSTERONE, FREE 3.3 0.1-6.4 pg/mL (Note) This test was developed and its analytical performance characteristics have been determined by [employer]. It has not been cleared or approved by the FDA. This assay has been validated pursuant to the CLIA regulations and is used for clinical purposes. [facility] [address] [address],[address] [place] [id number] Blake Gonzalez MD, PhD Reason For Referral Reason Sleep Consult Diagnosis 1 Obstructive sleep ap neetu (adult) (pediatric) (G47.33) Referral Organization [facility], [facility] - Lydia Chavez Referring Provider First Name Lydia Referring Provider Last Name Scott Referring Provider Speciality Internal M edicine Referred Provider Specialty Miscellaneou s Referral Priority Routine Medications Medication SIG (Take, Route, Frequency, Duration) Notes Start Date End Date Status BD Syringe/Needle 23G X 1 3 ML inject testosterone IM weekly for 90 days 04/14/2024 Active Sertraline HCl 25 MG 1 tablet Orally Onc e a day for 90 days 04/26/2024 Active Testosterone Enanthate 200 MG/ML inject 0.1ml subcutaneously every week for 90 days 01/19/2024 Active Depo-Testosterone 100 MG/ML inject 0.1ml intramuscularly weekly for 90 days 01/21/2024 Active ALPRAZolam 0.25 MG 1 tab(s) orally thre e times a day for 30 days 07/28/2023 Active Problems Problem Type SNOMED Code ICD Code Onset Dates Problem Status W/U Status Risk Notes Problem Vitamin D deficiency (55461537) Vitamin D deficiency, unspecified (E55.9) Active confirmed Problem Hypothyroidism (70524684) Hypothyroidism, unspecified (E03.9) Active confirmed Problem Obstructive sleep apnea syndrome (disorder) (21212594) Obstructive sleep apnea (adult) (pediatric) (G47.33) Active confirmed Problem Obesity (122773375) Obesity, unspecified (E66.9) Active confirmed Problem 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, unspecified (E04.9) Active confirmed Problem Autoimmune thyroiditis (46995066) Autoimmune thyroiditis (E06.3) Active confirmed Problem Generalized anxiety disorder (44969219) Generalized anxiety disorder (F41.1) Active confirmed Problem Polyarthritis (563876403) Polyarthritis, unspecified (M13.0) Active confirmed Problem 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) Other specified arthritis, unspecified site (M13.80) Active confirmed Problem Irregular menstruation (54910849) Irregular menstruation, unspecified (N92.6) Active confirmed Problem Abnormal gait (38599744) Other abnormalities of gait and mobility (R26.89) Active confirmed Problem Panic disorder (484128349) Panic disorder [episodic paroxysmal anxiety] (F41.0) Active confirmed Vital Signs Heart Rate 72 /min 05/28/2024 Respiratory Rate 12 /min 05/28/2024 Blood pressure diastolic 82 mm Hg 05/28/2024 Height 68 in 05/28/2024 Blood pressure systolic 124 mm Hg 05/28/2024 Weight 180 lbs 05/28/2024 BMI 27.37 kg/m2 05/28/2024 Encounters Encounter Location Date Provider Diagnosis [id number] [place] [address] 03/13/2024 Provider Migration Decreased libido R68.82 [facility], [facility] Lydia Chavez [address] [place] [address] 09/16/2023 Lydia Chavez Generalized anxiety disorder F41.1 ; Abnormal weight gain R63.5 ; Other fatigue R53.83 and Vitamin D deficiency, unspecified E55.9 [employer], [facility] Lydiatyesha Chavez [address] [place] [address] 01/19/2024 Lydia Chavez Decreased libido R68.82 ; Irregular menstruation, unspecified N92.6 ; Autoimmune thyroiditis E06.3 ; Encounter for screening for lipoid disorders Z13.220 and Nontoxic goiter, unspecified E04.9 [facility], [facility] - Lydia Chavez [address] [place] [address] 04/26/2024 Lydia Chavez Dietary counseling and surveillance Z71.3 ; Autoimmune thyroiditis E06.3 ; Other fatigue R53.83 ; Overweight E66.3 ; Polyarthritis, unspecified M13.0 and Irregular menstruation, unspecified N92.6 [facility] [employer] [facility], [facility] - Lydia Chavez [address] [place] [address] 05/28/2024 Lydia Chavez Other fatigue R53.83 ; Obstructive sleep apnea (adult) (pediatric) G47.33 ; Autoimmune thyroiditis E06.3 ; Abnormal weight gain R63.5 ; Impaired fasting glucose R73.01 ; Obesity, unspecified E66.9 and Dietary counseling and surveillance Z71.3 [facility] [address] [place] [address] 08/19/2023 Lydia Chavez [facility] [address] [place] [address] 08/19/2023 Lydia Chavez Irregular menstruation, unspecified N92.6 and Other abnormalities of gait and mobility R26.89 [facility], [facility] - Lydia Chavez [address] [place] [address] 10/03/2023 Lydia Chavez [facility] [address] [place] [address] 11/03/2023 Lydia Chavez [facility] [address] [place] [address] 01/20/2024 Lydia Chavez Decreased libido R68.82 [facility] [address] [place] [address] 01/23/2024 L[facility], [facility] - Lydia Chavez [address] [place] [address] 02/04/2024 Lydia Chavez [facility] [id number] [place] [address] 02/12/2024 Lydia [facility], [facility] - Lydia Chavez [address] [place] [address] 03/05/2024 Lydia [facility], [facility] - Lydia Chavez [address] [facility] [place] [address] 04/05/2024 Lydia Chavez [facility], [facility] - Lydia Scott [address] [place] [address] 04/14/2024 Lydia Chavez Irregular menstruation, unspecified N92.6 and Other fatigue R53.83 [facility] [address] [place] [address] 04/27/2024 Lydia Chavez [facility] [address] [place] [address] 05/28/2024 Lydia Chavez [facility] [employer] [facility], [facility] - Lydia Scott [address] [place] [address] 01/18/2024 Lydia Chavez Assessments Encounter Date Diagnosis (ICD Code) Assessment Notes Treatment Notes Treatment Clinical Notes Section Notes 03/13/2024 Decreased libido (ICD-10 - R68.82) 09/16/2023 Abnormal weight gain (ICD-10 - R63.5) Send for DST to screen for hypercortisolism. 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 Continue on zoloft low dose and as needed xanax however patient rarely taking xanax at this time. 01/19/2024 Irregular menstruation, unspecified (ICD-10 - N92.6) Send for full hormone panel as she is wanting to consider hormone therapy. 01/19/2024 Decreased libido (ICD-10 - R68.82) Trial on low dose testostero ne enanthate 0.1 cc SQ once weekly- she has reduced libido and weakness when working out along with weight gain and lower motivation. Her testosterone levels are low level at 14 ng/dL- goal up to 40-60 ng/dL. She is aware to repeat levels day before 6 th T shot due to assess response to therapy. 04/26/2024 Autoimmune thyroiditis (ICD-10 - E06.3) 04/26/2024 Dietary counseling and surveillance (ICD-10 - Z71.3) 05/28/2024 Other fatigue (ICD-10 - R53.83) 05/28/2024 Obstructive sleep apnea (adult) (pediatric) (ICD-10 - G47.33) 08/19/2023 Irregular menstruation, unspecified (ICD-10 - N92.6) 08/19/2023 Other abnormalities of gait and mobility (ICD-10 - R26.89) 01/20/2024 Decreased libido (ICD-10 - R68.82) 04/14/2024 Other fatigue (ICD-10 - R53.83) 04/14/2024 Irregular menstruation, unspecified (ICD-10 - N92.6) 09/16/2023 Other fatigue (ICD-10 - R53.83) Send for full thyroid, vitam in, B12/ okay for patient to increase her B12 injections to weekly and add folic acid 1 mg daily as she is heterozygous for MTHFR mutation. 01/19/2024 Autoimmune thyroiditis (ICD-10 - E06.3) Continue on thyroid support - patient having more fatigue-needs up to date labwork to assess for any changes in endogenous function. 04/26/2024 Other fatigue (ICD-10 - R53.83) 05/28/2024 Autoimmune thyroiditis (ICD-10 - E06.3) 09/16/2023 Vitamin D deficiency, unspecified (ICD-10 - E55.9) Continue on vitmain D supplementation- goal of 50 ng/mL to optimize bone and immune health. 01/19/2024 Encounter for screening for lipoid disorders (ICD-10 - Z13.220) Send for lipid panel to [facility] [place]. 04/26/2024 Overweight (ICD-10 - E66.3) 05/28/2024 Abnormal weight gain (ICD-10 - R63.5) 01/19/2024 Nontoxic goiter, unspecified (ICD-10 - E04.9) Will send for repeat thyroid ultrasound as she does have a palpable thyroid and repeat thyroid function panel to assess function. Need to rule out any evidence of new nodules along with change in architecture or echotexture of thyroid that would suggest chronic thyroiditis / autoimmune changes. 04/26/2024 Polyarthritis, unspecified (ICD-10 - M13.0) 05/28/2024 Impaired fasting glucose (ICD-10 - R73.01) 04/26/2024 Irregular menstruation, unspecified (ICD-10 - N92.6) 05/28/2024 Obesity, unspecified (ICD-10 - E66.9) 05/28/2024 Dietary counseling and surveillance (ICD-10 - Z71.3) 09/16/2023 Other Spent 25 minutes preparing to see the patient (ex review of tests/chart), obtaining and / or reviewing separately obtained history, performing a medically appropriate examination and/or evaluation, counseling and educating the patient/family/caregiver, ordering medications, tests, or procedures, referring and communicating with other health home health care social worker, documenting clinical information in the electronic or other health record, independently interpreting results and communicating results to the patient/family/caregiver and care coordinating patient plan. Patient alert and oriented x 4 and aware of discussion noted above and in agreeance to plan in management of anxiety, fatigue and weight management. Due to the nature of telemedicine, the ability to do physical assessment was limited to what can be accomplished by patient directed telehealth visit based on instruction. Those limits are understood by the patient and myself. Impression is based on history, available information, and physical findings accomplished with telehealth visit. Chronic disease/problem list/ medication list reviewed and updated where indicated. Discussed diagnosis, plan including risks, benefits, and options of treatment. Advised to call for new, worsening, or persistent symptoms. Level of patient risk was of moderate complexity due to the documented nature of presentation, the information assessment required and the nature of the development of an evaluation and treatment plan as documented. PMH, FHx, SHx, Surgical Hx, Quality management review carried out and addressed as documented today as part of this visit. Medication list was reviewed and adjusted as indicated. Medication requiring a refill was addressed. Risk and benefits of any new medications were discussed and all questions were answered. 01/19/2024 Other Spent 25 minutes preparing to see the patient (ex review of tests/chart), obtaining and / or reviewing separately obtained history, performing a medically appropriate examination and/or evaluation, counseling and educating the patient/family/caregiver, ordering medications, tests, or procedures, referring and communicating with other health home health care social worker, documenting clinical information in the electronic or other health record, independently interpreting results and communicating results to the patient/family/caregiver and care coordinating patient plan. Patient alert and oriented x 4 and aware of discussion noted above and in agreeance to plan in management of reduced libido/low energy, irregular cycles, autoimmune thyroiditis and goiter. Due to the nature of telemedicine, the ability to do physical assessment was limited to what can be accomplished by patient directed telehealth visit based on instruction. Those limits are understood by the patient and myself. Impression is based on history, available information, and physical findings accomplished with telehealth visit. Chronic disease/problem list/ medication list reviewed and updated where indicated. Discussed diagnosis, plan including risks, benefits, and options of treatment. Advised to call for new, worsening, or persistent symptoms. Level of patient risk was of moderate complexity due to the documented nature of presentation, the information assessment required and the nature of the development of an evaluation and treatment plan as documented. PMH, FHx, SHx, Surgical Hx, Quality management review carried out and addressed as documented today as part of this visit. Medication list was reviewed and adjusted as indicated. Medication requiring a refill was addressed. Risk and benefits of any new medications were discussed and all questions were answered. 04/26/2024 Other Assessment and Plan: 1. Elevated cortisol level:- Patient's cortisol level is over 1.8, which is high. She has taken the dexamethasone suppression test, and we are awaiting the results.- Plan: Await dexamethasone level results. Consider adding urine and salivary cortisol tests if needed. If the dexamethasone suppression test is unreliable, consider a higher dose dexamethasone test. 2. Weight gain and possible inflammation:- Patient reports a weight gain of 15 pounds since October and feels inflamed, especially in her joints.- Plan: Encourage the patient to maintain a healthy diet and exercise routine. Consider retesting for rheumatoid arthritis if it has been over a year since the last test. Monitor weight and inflammation symptoms. 3. 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 4. Thyroid support:- Patient is using natural supplements for thyroid support and requests a reevaluation of her thyroid levels.- Plan: Order lab tests to check thyroid levels and adjust treatment as needed. 5. Zoloft refill:- Patient reports that Zoloft is helping and requests a refill.- Plan: Refill Zoloft prescription and monitor for any side effects, including weight gain. 6. Irregular menstrual cycles:- Patient reports that her cycles are still off and have changed in length.- Plan: Check hormone levels before starting testosterone therapy. Monitor for any perimenopausal changes. 7. Family history of diabetes:- Patient's father has diabetes, which may be self-induced due to his diet.- Plan: Monitor patient's blood sugar levels and encourage a healthy lifestyle to reduce the risk of developing diabetes. 8. Lab orders:- Plan: Email lab orders to the patient at [email or web address]. Instruct the patient to complete the 24-hour urine collection and salivary tests as directed. Review results and adjust treatment plan accordingly. 9. Follow-up:- Plan: Schedule a follow-up appointment in a few months to review test results and monitor the patient's progress. Spent 25 minutes preparing to see the patient (ex review of tests/chart), obtaining and / or reviewing separately obtained history, performing a medically appropriate examination and/or evaluation, counseling and educating the patient/family/caregiver, ordering medications, tests, or procedures, referring and communicating with other health home health care social worker, documenting clinical information in the electronic or other health record, independently interpreting results and communicating results to the patient/family/caregiver and care coordinating patient plan. Patient alert and oriented x 4 and aware of discussion noted above and in agreeance to plan in management of autoimmune thyroiditis, weight management/ diet changes, fatigue and hormone workup along with concern and need for further workup for potentially high cortisol. Spent 15 minutes preventative counseling patient on dietary recommendations and changes in setting of hyperglycemia- need to restrict refined sugars and processed foods and incorporate up to 150 minutes of moderate level activity weekly. Due to the nature of telemedicine, the ability to do physical assessment was limited to what can be accomplished by patient directed telehealth visit based on instruction. Those limits are understood by the patient and myself. Impression is based on history, available information, and physical findings accomplished with telehealth visit. Chronic disease/problem list/ medication list reviewed and updated where indicated. Discussed diagnosis, plan including risks, benefits, and options of treatment. Advised to call for new, worsening, or persistent symptoms. Level of patient risk was of moderate complexity due to the documented nature of presentation, the information assessment required and the nature of the development of an evaluation and treatment plan as documented. PMH, FHx, SHx, Surgical Hx, Quality management review carried out and addressed as documented today as part of this visit. Medication list was reviewed and adjusted as indicated. Medication requiring a refill was addressed. Risk and benefits of any new medications were discussed and all questions were answered. 05/28/2024 Other Assessment and Plan: Suspected Sleep ApneaPatient reports feeling unrested upon waking and frequent snoring. Notable weight gain over the past 2 years.Schedule a sleep study to evaluate for sleep apnea.Await sleep study results to determine the necessity of CPAP or other interventions.Consider referral to a head and neck or sleep specialist based on sleep study outcomes. Elevated CortisolElevated DEXA level and cortisol suggest high cortisol possibly secondary to suspected sleep apnea.Await urine study results for further evaluation.If sleep study results are normal, proceed with additional cortisol testing.Consider adrenal CT scan if urine study results are unexpected.Defer any medication prescriptions pending further testing and sleep study results. HypothyroidismThyroid levels within range but T4 is low normal, patient reports symptoms consistent with hypothyroidism.Recommend iodine support and provide information on thyroid supplements. Borderline HypercholesterolemiaCholesterol levels are borderline elevated.Recommend omega-3 fatty acid supplementation and provide information on fish oil supplements.Suggest considering [employer] brand supplements. HypogonadismPatient is on testosterone replacement therapy with noted testosterone level.Continue current testosterone replacement therapy and monitor for efficacy and side effects. Suspected Barbara-Rolle VirusPossible Barbara-Rolle virus infection mentioned by primary care physician.Order Barbara-Rolle virus testing and, if positive, recommend lysine, vitamin C, and zinc supplementation. Follow-up:Schedule a follow-up appointment to review test results and assess the response to interventions.Encourage patient to report any new or worsening symptoms. Spent 25 minutes preparing to see the patient (ex review of tests/chart), obtaining and / or reviewing separately obtained history, performing a medically appropriate examination and/or evaluation, counseling and educating the patient/family/caregiver, ordering medications, tests, or procedures, referring and communicating with other health home health care social worker, documenting clinical information in the electronic or other health record, independently interpreting results and communicating results to the patient/family/caregiver and care coordinating patient plan. Patient alert and oriented x 4 and aware of discussion noted above and in agreeance to plan in management of fatigue, concern for LUDY, autoimmune thyroiditis, weight gain and impaired glucose. Due to the nature of telemedicine, the ability to do physical assessment was limited to what can be accomplished by patient directed telehealth visit based on instruction. Those limits are understood by the patient and myself. Impression is based on history, available information, and physical findings accomplished with telehealth visit. Chronic disease/problem list/ medication list reviewed and updated where indicated. Discussed diagnosis, plan including risks, benefits, and options of treatment. Advised to call for new, worsening, or persistent symptoms. Level of patient risk was of moderate complexity due to the documented nature of presentation, the information assessment required and the nature of the development of an evaluation and treatment plan as documented. PMH, FHx, SHx, Surgical Hx, Quality management review carried out and addressed as documented today as part of this visit. Medication list was reviewed and adjusted as indicated. Medication requiring a refill was addressed. Risk and benefits of any new medications were discussed and all questions were answered. Plan Of Treatment Pending Test Test Name Order Date ultrasound thyroid 01/19/2024 -MRI BRAIN WWO 08/19/2023 Ultrasound thyroid 07/25/2023 CT-right hip 08/11/2023 TESTOSTERONE, TOTAL, LC/MS/MS (FEMALES) 08/19/2023 ESTRADIOL 06/11/2024 PROGESTERONE 06/11/2024 Home sleep study 05/28/2024 TESTOSTERONE, FREE (DIALYSIS) AND TOTAL, MS 06/11/2024 Insurance Providers Payer Name Payer Address Payer Phone Subscriber Number Group Number Insured Name Patient Relationship to Insured Coverage Start Date Coverage End Date [place] [employer] [address] [place] [address] [id number] Judy Isbell Self - patient is the insured Medical (General) History Medical History History ICD Code autoimmune thyroiditis low testosterone
--- OUTSIDE RECORDS SUMMARY | 2024-08-18 10:26 | XMS_ITS | Encounter Summary ---
Author Organization [employer] Address [address] [place] [address] Care Team Providers Care Flexo Operator Name Role Phone Adis Mcdermott MD Primary Care Provider [phone] Encounter Details Date Type Department Care Team (Late st Contact Info) Description 09/25/2004 Outpatient [facility] Family Therapy [address] [place] [phone] Debbie Sheridan, RN Social History Tobacco Use Types Packs/Day Years Used Date Smoking Tobacco: Never Assessed Comments Unknown Sex and Gender Information Value Date Recorded Sex Assigned at Not on file Legal Sex Female 4:[address] Gender Identity Not on file Sexual Orientation Not on file documented as of this encounter Plan of Treatment Not on file documented as of this encounter Visit Diagnoses Not on filedocumented in this encounter Care Teams Flexo Operator Relationship Specialty Start Date End Date Adis Mcdermott MD PCP - General Internal Medicine 07/08/14 documented as of this encounter
--- OUTSIDE RECORDS SUMMARY | 2024-08-18 10:26 | XMS_ITS | Encounter Summary ---
Author Organization [facility] Address [address] [place] [address] Care Team Providers Care Association Executive Name Role Phone Adis Mcdermott MD Primary Care Provider [phone] Encounter Details Date Type Department Care Team (Late st Contact Info) Description 05/09/2004 Outpatient Historical [facility] Internal Medicine [address] [address] Shaheen Stokes MD [address] [place] [phone] Social History Tobacco Use Types Packs/Day Years Used Date Smoking Tobacco: Never Assessed Comments Unknown Sex and Gender Information Value Date Recorded Sex Assigned at Not on file Legal 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 Gender Identity Not on file Sexual Orientation Not on file documented as of this encounter Last Filed Vital Signs Vital Sign Reading Time Taken Comments Blood Pressure 118/70 05/09/2004 1:15 PM DATABASE ADMINISTRATOR Pulse - - Temperature - - Respiratory Rate - - Oxygen Saturation - - Inhaled Oxygen Concentration - - Weight 78 kg (172 lb) 05/09/2004 1:15 PM DATABASE ADMINISTRATOR Height - - Body Mass Index - - documented in this encounter Plan of Treatment Not on file documented as of this encounter Visit Diagnoses Not on filedocumented in this encounter Care Teams Association Executive Relationship Specialty Start Date End Date Adis Mcdermott MD PCP - General Internal Medicine 07/08/14 documented as of this encounter
--- OUTSIDE RECORDS SUMMARY | 2024-08-18 10:26 | XMS_ITS | Encounter Summary ---
Author Organization [facility] Address [address] [place] [address] Care Team Providers Care Thermal Intelligence Analyst Name Role Phone Adis Mcdermott MD Primary Care Provider [phone] Encounter Details Date Type Department Care Team (Late st Contact Info) Description 06/09/2006 Orders Only [facility] Internal Medicine [address] [address] Adis Mcdermott MD [address] [place] [phone] Social History Tobacco Use Types Packs/Day Years Used Date Smoking Tobacco: Never Assessed Comments Unknown Sex and Gender Information Value Date Recorded Sex Assigned at Not on file Legal 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 CURRENT ALLERGY LIST: NO KNOWN ALLERGIES PHARMACY NUMBER: [phone] PROBLEMS: started last night CONGESTION: Patient complains of sinus congestion, complains of chest congestion. sinus pressure ears clogged a little from drainage COUGH:Patient complains of cough. from drainage SORE THROAT: Patient complains of sore throat. body aches patient is requesting a Z pack. SECTION 1: REQUESTED ACTION robert 06/09/06 at 03:36 pm: MEDICATION REQUEST: Patient wants medications and can not come in. DOCTOR`S RESPONSE: susan 06/09/06 at 04:18 pm MEDICATIONS: Call in to Pharmacy ZITHROMAX Z-CASEY ORAL TABLET 250 MG, DIRECTED, 1 Dispensed, 2 Fills, status: CONTINUED, 01/13/2006. FINAL ACTION: licasl 06/09/06 at 04:55 pm Called pharmacy at 06/09/06 at 04:55 pm. Electronically Signed by: Emerald Sandoval on Friday, June 09, 2006 documented in this encounter Plan of Treatment Not on file documented as of this encounter Visit Diagnoses Not on filedocumented in this encounter Care Teams Thermal Intelligence Analyst Relationship Specialty Start Date End Date Adis Mcdermott MD PCP - General Internal Medicine 07/08/14 documented as of this encounter
--- OUTSIDE RECORDS SUMMARY | 2024-08-18 10:26 | XMS_ITS | Encounter Summary ---
Author Organization [facility] Address [address] [place] [address] Care Team Providers Care Supervisor Filtration Name Role Phone Adis Mcdermott MD Primary Care Provider [phone] Encounter Details Date Type Department Care Team (Late st Contact Info) Description 11/26/2005 Outpatient Historical [facility] Internal Medicine [address] [address] Adis Mcdermott MD [address] [place] [phone] Social History Tobacco Use Types Packs/Day Years Used Date Smoking Tobacco: Never Assessed Comments Unknown Sex and Gender Information Value Date Recorded Sex Assigned at Not on file Legal Sex 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 Gender Identity Not on file Sexual Orientation Not on file documented as of this encounter Last Filed Vital Signs Vital Sign Reading Time Taken Comments Blood Pressure 120/70 11/26/2005 4:15 PM CDT Pulse - - Temperature - - Respiratory Rate - - Oxygen Saturation - - Inhaled Oxygen Concentration - - Weight 68 kg (150 lb) 11/26/2005 4:15 PM CDT Height - - Body Mass Index - - documented in this encounter Plan of Treatment Not on file documented as of this encounter Visit Diagnoses Not on filedocumented in this encounter Care Teams Supervisor Filtration Relationship Specialty Start Date End Date Adis Mcdermott MD PCP - General Internal Medicine 07/08/14 documented as of this encounter
--- OUTSIDE RECORDS SUMMARY | 2024-08-18 10:26 | XMS_ITS | Encounter Summary ---
Author Organization [facility] Address [address] [place] [address] Care Team Providers Care Devops Solutions Architect Name Role Phone Adis Mcdermott MD Primary Care Provider [phone] Encounter Details Date Type Department Care Team (Late st Contact Info) Description 02/27/2005 Outpatient Historical [facility] Internal Medicine [address] [address] Shaheen Stokes MD [address] [place] [phone] Social History Tobacco Use Types Packs/Day Years Used Date Smoking Tobacco: Never Assessed Comments Unknown Sex and Gender Information Value Date Recorded Sex Assigned at Not on file Legal Sex Female 4:17 AM 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 Gender Identity Not on file Sexual Orientation Not on file documented as of this encounter Last Filed Vital Signs Vital Sign Reading Time Taken Comments Blood Pressure 120/70 02/27/2005 11:15 AM SENIOR 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 MANAGER Pulse - - Temperature - - Respiratory Rate - - Oxygen Saturation - - Inhaled Oxygen Concentration - - Weight 69.4 kg (153 lb) 02/27/2005 11:15 AM SENIOR 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 MANAGER Height - - Body Mass Index - - documented in this encounter Plan of Treatment Not on file documented as of this encounter Visit Diagnoses Not on filedocumented in this encounter Care Teams Devops Solutions Architect Relationship Specialty Start Date End Date Adis Mcdermott MD PCP - General Internal Medicine 07/08/14 documented as of this encounter
--- OUTSIDE RECORDS SUMMARY | 2024-08-18 10:26 | XMS_ITS | Encounter Summary ---
Author Organization [facility] Address [address] [place] [address] Care Team Providers Care Casualty Claim Adjuster Name Role Phone Adis Mcdermott MD Primary Care Provider [phone] Encounter Details Date Type Department Care Team (Late st Contact Info) Description 07/29/2006 Orders Only [facility] Internal Medicine [address] [address] Adis Mcdermott MD [address] [place] [phone] Social History Tobacco Use Types Packs/Day Years Used Date Smoking Tobacco: Never Assessed Comments Unknown Sex and Gender Information Value Date Recorded Sex Assigned at Not on file Legal Sex Female 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 ALTERNATIVE PHONE NUMBER: [phone] CURRENT ALLERGY LIST: NO KNOWN ALLERGIES PHARMACY NUMBER: [phone] SECTION 1: REQUESTED ACTION hilary 07/29/06 at 12:18 pm: MEDICATION REQUEST: MEDICATION REQUEST: Patient requests sample medications. Grey DOCTOR`S RESPONSE: licasl 07/29/06 at 04:44 pm We can call in a new script. MEDICATIONS: ASTELIN NASAL SOLUTION 137 MCG/SPRAY, 2 PUFFS NASAL TWICE DAILY As needed, 1 Dispensed, status: CONTINUED, 07/29/2006. FINAL ACTION: licasl 07/29/06 at 04:46 pm Spoke with patient 07/29/06 at 04:47 pm. Called pharmacy at 07/29/06 at 04:46 pm. Electronically Signed by: Emerald Sandoval on Saturday, July 29, 2006 documented in this encounter Plan of Treatment Not on file documented as of this encounter Visit Diagnoses Not on filedocumented in this encounter Care Teams Casualty Claim Adjuster Relationship Specialty Start Date End Date Adis Mcdermott MD PCP - General Internal Medicine 07/08/14 documented as of this encounter
--- OUTSIDE RECORDS SUMMARY | 2024-08-18 10:26 | XMS_ITS | Encounter Summary ---
Author Organization [facility] Address [address] [place] [address] Care Team Providers Care Chuck Tender Name Role Phone Adis Mcdermott MD Primary Care Provider [phone] Encounter Details Date Type Department Care Team (Late st Contact Info) Description 11/19/2005 Orders Only [facility] Internal Medicine [address] [address] Adis Mcdermott MD [address] [place] [phone] Social History Tobacco Use Types Packs/Day Years Used Date Smoking Tobacco: Never Assessed Comments Unknown Sex and Gender Information Value Date Recorded Sex Assigned at Not on file Legal Sex Female 4:17 AM POLITICAL DIRECTOR Gender Identity Not on file Sexual Orientation Not on file documented as of this encounter Progress Notes * Adis Mcdermott MD - 02/04/2008 8:30 PM CDT TIME:12:51 pm PATIENT`S HOME PHONE: PATIENT`S WORK PHONE: PATIENT`S INSURANCE: WHO TOOK THE CALL: Paulette Warner S GENERAL INFORMATION ALTERNATIVE PHONE NUMBER: [phone] WHO CALLED: Patient called. PHARMACY NUMBER: [phone] PROBLEMS: sinus infection for a few days CONGESTION: Patient complains of sinus congestion. COUGH:Patient complains of cough. HEADACHE: Patient complains of headache. SECTION 1: REQUESTED ACTION browelaina 11/19/05 at 12:52 pm: MEDICATION REQUEST: Patient wants medications and can not come in.prefer abx DOCTOR`S RESPONSE: susan 11/19/05 at 01:03 pm see today, not seen since FINAL ACTION: mitch 11/19/05 at 01:10 pm Spoke with patient 11/19/05 at 01:10 pm. Booked appointment: 4pm 11/20/05 Electronically Signed by: Aden Mcallister on Saturday, November 19, 2005 * Adis Mcdermott MD - 02/04/2008 8:27 PM CDT WEIGHT: 150lbs BLOOD PRESSURE: 120/68 Right Arm Sitting TEMPERATURE: 98.4??f Oral NURSE NAME: Jordon ThaniaKate CHIEF COMPLAINT Patient complains of sinus congestion. drainage, pain in left foot HISTORY: HISTORY: 311-DEPRESSION The depression remains stable. Currently the patient is off all medication. 461.9-SINUSITIS UNSPECIFIED The patient's acute sinusitis has worsened. The patient has earache, has nasal congestion, has sinus congestion, has sore throat. 692.9-ECZEMA light on arms, some flaking PHYSICAL EXAMINATION: EARS, NOSE, MOUTH AND THROAT: EARS: EFFUSION PRESENT BILATERALLY. ORAL: Normal oropharynx. NECK/THYROID: Trachea midline. No thyroid enlargement, tenderness, or mass. No supraclavicular or cervical adenopathy. RESPIRATORY: Clear to auscultation and percussion. Normal respiratory effort. CARDIOVASCULAR: CARDIAC: Regular rhythm. No murmurs, rubs, or gallops. EDEMA/VARICOSITIES OF EXTREMITIES: No edema or varicosities. MUSCULOSKELETAL EXAM: pain dorsum left foot SKIN: depigmentation elbows, mild flaking ASSESSMENT/PLAN: 311-DEPRESSION resolved 461.9-SINUSITIS UNSPECIFIED MEDICATIONS: KETEK ORAL TABLET 400 MG, 2 Every Morning, 10 Dispensed, status: NEW PRESCRIPTION, 11/19/2005. 530.81-GASTROESOPHAGEAL REFLUX (GERD) refill med 692.9-ECZEMA rx MEDICATIONS: LOTRISONE EXTERNAL CREAME 1-0.05 %, DIRECTED, 45 Dispensed, status: NEW PRESCRIPTION, 11/19/2005, Comment: apply bid. PREVENTIVE COUNSELING The patient was counseled regarding possible decrease of contraceptive effectiveness when antibiotics are taken, and recommendation of back up contraception made. RETURN VISIT : Instructed to call if not improving. Electronically Signed by: Adis Mcdermott MD on Saturday, November 19, 2005 documented in this encounter Plan of Treatment Not on file documented as of this encounter Visit Diagnoses Not on filedocumented in this encounter Care Teams Chuck Tender Relationship Specialty Start Date End Date Adis Mcdermott MD PCP - General Internal Medicine 07/08/14 documented as of this encounter
--- OUTSIDE RECORDS SUMMARY | 2024-08-18 10:26 | XMS_ITS | Encounter Summary ---
Author Organization [facility] Address [address] [place] [address] Care Team Providers Care Ludlow Machine Operator Name Role Phone Adis Mcdermott MD Primary Care Provider [phone] Encounter Details Date Type Department Care Team (Late st Contact Info) Description 06/28/2003 Outpatient Historical [facility] Internal Medicine [address] [address] Shaheen Stokes MD [address] [place] [phone] Social History Tobacco Use Types Packs/Day Years Used Date Smoking Tobacco: Never Assessed Comments Unknown Sex and Gender Information Value Date Recorded Sex Assigned at Not on file Legal Sex Female 4:17 AM DIRECTOR 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
--- OUTSIDE RECORDS SUMMARY | 2024-08-18 10:26 | XMS_ITS | Encounter Summary ---
Author Organization [employer] Address 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
--- OUTSIDE RECORDS SUMMARY | 2024-08-18 10:26 | XMS_ITS | Encounter Summary ---
Author Organization [facility] Address [address] [place] [address] Care Team Providers Care Crop Farm Workers Name Role Phone Adis Mcdermott MD Primary Care Provider [phone] Encounter Details Date Type Department Care Team (Late st Contact Info) Description 04/03/2005 Outpatient Historical [facility] Internal Medicine [address] [address] Shaheen Stokes MD [address] [place] [phone] Social History Tobacco Use Types Packs/Day Years Used Date Smoking Tobacco: Never Assessed Comments Unknown Sex and Gender Information Value Date Recorded Sex Assigned at Not on file Legal Sex Female 4:17 AM CARETAKER GROUNDS Gender Identity Not on file Sexual Orientation Not on file documented as of this encounter Last Filed Vital Signs Vital Sign Reading Time Taken Comments Blood Pressure 110/70 04/03/2005 3:15 PM CARETAKER GROUNDS Pulse - - Temperature - - Respiratory Rate - - Oxygen Saturation - - Inhaled Oxygen Concentration - - Weight 70.3 kg (155 lb) 04/03/2005 3:15 PM CARETAKER GROUNDS Height - - Body Mass Index - - documented in this encounter Plan of Treatment Not on file documented as of this encounter Visit Diagnoses Not on filedocumented in this encounter Care Teams Crop Farm Workers Relationship Specialty Start Date End Date Adis Mcdermott MD PCP - General Internal Medicine 07/08/14 documented as of this encounter
--- OUTSIDE RECORDS SUMMARY | 2024-08-18 10:26 | XMS_ITS | Encounter Summary ---
Author Organization [facility] Address [address] [place] [address] Care Team Providers Care Deli Clerk Name Role Phone Adis Mcdermott MD Primary Care Provider [phone] Encounter Details Date Type Department Care Team (Late st Contact Info) Description 10/21/2006 Outpatient Historical [facility] Internal Medicine [address] [address] Adis Mcdermott MD [address] [place] [phone] Social History Tobacco Use Types Packs/Day Years Used Date Smoking Tobacco: Never Assessed Comments Unknown Sex and Gender Information Value Date Recorded Sex Assigned at Not on file Legal Sex Female 4:17 AM DIGITAL SPECIALIST Gender Identity Not on file Sexual Orientation Not on file documented as of this encounter Last Filed Vital Signs Vital Sign Reading Time Taken Comments Blood Pressure 128/62 10/21/2006 2:45 PM CDT Pulse - - Temperature 36.6 C (97.8 F) 10/21/2006 2:45 PM CDT Respiratory Rate - - Oxygen Saturation - - Inhaled Oxygen Concentration - - Weight 63.5 kg (140 lb) 10/21/2006 2:45 PM CDT Height - - Body Mass Index - - documented in this encounter Plan of Treatment Not on file documented as of this encounter Visit Diagnoses Not on filedocumented in this encounter Care Teams Deli Clerk Relationship Specialty Start Date End Date Adis Mcdermott MD PCP - General Internal Medicine 07/08/14 documented as of this encounter
--- OUTSIDE RECORDS SUMMARY | 2024-08-18 10:26 | XMS_ITS | Encounter Summary ---
Author Organization [employer] Address [address] [place] [address] Care Team Providers Care Manufacturing Engineer Assembly Name Role Phone Adis Mcdermott MD Primary Care Provider [phone] Encounter Details Date Type Department Care Team (Latest Contact Info) Description 06/25/2004 Outpatient Historical [facility] Shaheen Stokes MD [address] [place] [phone] ABNORMAL WEIGHT GAIN (Primary Dx) Social History Tobacco Use Types Packs/Day Years Used Date Smoking Tobacco: Never Assessed Comments Unknown Sex and Gender Information Value Date Recorded Sex Assigned at Not on file Legal Sex Female 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
--- OUTSIDE RECORDS SUMMARY | 2024-08-18 10:26 | XMS_ITS | Encounter Summary ---
Author Organization [facility] Address [address] [place] [address] Care Team Providers Care Remelt Pan Tank Operator Name Role Phone Adis Mcdermott MD Primary Care Provider [phone] Encounter Details Date Type Department Care Team (Late st Contact Info) Description 01/13/[address] [facility] Internal Medicine [address] [address] Adis Mcdermott MD [address] [place] [phone] Social History Tobacco Use Types Packs/Day Years Used Date Smoking Tobacco: Never Assessed Comments Unknown Sex and Gender Information Value Date Recorded Sex Assigned at Not on file Legal Sex Female 4:17 AM KNIT GOODS CUTTER HAND Gender Identity Not on file Sexual Orientation Not on file documented as of this encounter Last Filed Vital Signs Vital Sign Reading Time Taken Comments Blood Pressure 110/60 01/13/2006 3:00 PM CDT Pulse - - Temperature 37.1 C (98.7 F) 01/13/2006 3:00 PM CDT Respiratory Rate - - Oxygen Saturation - - Inhaled Oxygen Concentration - - Weight 68 kg (150 lb) 01/13/2006 3:00 PM CDT Height - - Body Mass Index - - documented in this encounter Plan of Treatment Not on file documented as of this encounter Visit Diagnoses Not on filedocumented in this encounter Care Teams Remelt Pan Tank Operator Relationship Specialty Start Date End Date Adis Mcdermott MD PCP - General Internal Medicine 07/08/14 documented as of this encounter
--- OUTSIDE RECORDS SUMMARY | 2024-08-18 10:26 | XMS_ITS ---
Author Organization [facility] Address [address] [address] Care Team Providers Care Refund Specialist Name Role Phone Lydia Chavez Primary Care Provider [phone] Reason For Referral Reason Sleep Consult Diagnosis 1 Obstructive sleep ap neetu (adult) (pediatric) (G47.33) Referral Organization [facility] - Lydia Chavez Referring Provider First Name Lydia Referring Provider Last Name Scott Referring Provider Speciality Internal M edicine Referred Provider Specialty Miscellaneou s Referral Priority Routine Encounters Encounter Location Date Provider Diagnosis [facility] [address] [place] [address] 05/28/2024 Lydia Chavez Plan Of Treatment Referrals Referral Date Details 05/31/2024 05/31/2024, Sleep Co nsult Progress Notes * Judy VAUGHNDOB:1980 (43 yo F)Acc No.[id number]:05/28/2024 Patient: Judy OROURKE :1980 A ge:43 Y S ex:Female Address:[address] [place] [phone] Subjective: * Chief Complaints: * * Medical History: * Surgical History: * Hospitalization/Major Diagno stic Procedure: * Medications: Objective: * Vitals: * Physical Examination: Assessment: Plan: * Treatment: * Procedure Codes: * true * Date: Generated for Printi ng/Faxing/eTransmitting on: 0 08/18/2024 10:26 AM CDT Consultation Request Notes Referral Date Referring Provider Referred Provider Not es 05/31/2024 Lydia Chavez , Sleep Consult
--- OUTSIDE RECORDS SUMMARY | 2024-08-18 10:26 | XMS_ITS | Encounter Summary ---
Author Organization [employer] Address 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
--- OUTSIDE RECORDS SUMMARY | 2024-08-18 10:26 | XMS_ITS | Encounter Summary ---
Author Organization [facility] Address [address] [place] [address] Care Team Providers Care Medical Parasitologist Name Role Phone Adis Mcdermott MD Primary Care Provider [phone] Encounter Details Date Type Department Care Team (Late st Contact Info) Description 01/13/2006 Orders Only [facility] Internal Medicine [address] [address] Adis Mcdermott MD [address] [place] [address] Social History Tobacco Use Types Packs/Day Years Used Date Smoking Tobacco: Never Assessed Comments Unknown Sex and Gender Information Value Date Recorded Sex Assigned at Not on file Legal Sex Female 4:17 AM SQL REPORT ANALYST Gender Identity Not on file Sexual Orientation Not on file documented as of this encounter Progress Notes * Adis Mcdermott MD - 02/09/2008 6:18 PM CDT TIME:01:16 pm PATIENT`S HOME PHONE: PATIENT`S WORK PHONE: PATIENT`S INSURANCE: [employer] WHO TOOK THE CALL: Paulette Warner S PROBLEMS: * Adis Mcdermott MD - 02/09/2008 6:15 PM CDT WEIGHT: 150lbs BLOOD PRESSURE: 110/60 Right Arm Sitting TEMPERATURE: 37.06??c Oral NURSE NAME: Isamar Nettles J CHIEF COMPLAINT Patient complains of sore throat. and drainage HISTORY: HISTORY: 461.9-SINUSITIS UNSPECIFIED The patient has earache, has fever, has sinus congestion, has sore throat.sx x several days. PHYSICAL EXAMINATION: EARS, NOSE, MOUTH AND THROAT: EARS: EFFUSION PRESENT BILATERALLY, TYMPANIC MEMBRANES INFLAMED BILATERALLY. ORAL: OROPHARYNX ERYTHEMATOUS. NECK/THYROID: Trachea midline. No thyroid enlargement, tenderness, or mass. No supraclavicular or cervical adenopathy. RESPIRATORY: Clear to auscultation and percussion. Normal respiratory effort. CARDIOVASCULAR: CARDIAC: Regular rhythm. No murmurs, rubs, or gallops. EDEMA/VARICOSITIES OF EXTREMITIES: No edema or varicosities. ASSESSMENT/PLAN: 461.9-SINUSITIS UNSPECIFIED rx, refill astelin, try singulair MEDICATIONS: ZITHROMAX Z-CASEY ORAL TABLET 250 MG, DIRECTED, 1 Dispensed, 2 Fills, status: CONTINUED, 01/13/2006. ASTELIN NASAL SOLUTION 137 MCG/SPRAY, 2 PUFFS NASAL TWICE DAILY As needed, 1 Dispensed, 5 Fills, status: NEW PRESCRIPTION, 09/13/2003. SINGULAIR ORAL TABLET 10 MG, 1 Every Day, 30 Dispensed, status: NEW PRESCRIPTION, 01/13/2006. RETURN VISIT : Instructed to call if not improving.note for today and tomorrow Electronically Signed by: Adis Mcdermott MD on Friday, January 13, 2006 documented in this encounter Plan of Treatment Not on file documented as of this encounter Visit Diagnoses Not on filedocumented in this encounter Care Teams Medical Parasitologist Relationship Specialty Start Date End Date Adis Mcdermott MD PCP - General Internal Medicine 07/08/14 documented as of this encounter
--- OUTSIDE RECORDS SUMMARY | 2024-08-18 10:26 | XMS_ITS | Encounter Summary ---
Author Organization [facility] Address [address] [place] [address] Care Team Providers Care Oracle Hyperion Consultant Name Role Phone Adis Mcdermott MD Primary Care Provider [phone] Encounter Details Date Type Department Care Team (Late st Contact Info) Description 09/23/2006 Orders Only [facility] Internal Medicine [address] [address] Adis Mcdermott MD [address] [place] [phone] Social History Tobacco Use Types Packs/Day Years Used Date Smoking Tobacco: Never Assessed Comments Unknown Sex and Gender Information Value Date Recorded Sex Assigned at Not on file Legal Sex Female 4:17 AM INTELLIGENCE CLERK Gender Identity Not on file Sexual Orientation Not on file documented as of this encounter Progress Notes * Adis Mcdermott MD - 09/17/2007 12:47 PM CDT TIME:11:13 am PATIENT`S HOME PHONE: PATIENT`S WORK PHONE: PATIENT`S INSURANCE: [employer] P[employer] WHO TOOK THE CALL: Nadira Clay C GENERAL INFORMATION ALTERNATIVE PHONE NUMBER: [phone] WHO CALLED: Patient called. Patient reports no known allergies. PHARMACY NUMBER: [phone] PROBLEMS: RASH: Patient complains of rash. The rash began approximately 2 days ago. Rash on nose back of neckhad this 2 weeks ago SECTION 1: REQUESTED ACTION paz 09/23/06 at 11:14 am: MEDICATION REQUEST: Patient wants medications and can not come in. DOCTOR`S RESPONSE: susan 09/23/06 at 11:23 am did med given work? SECTION 2: FINAL ACTION: paz 09/23/06 at 12:12 pm Left message on patient`s recorder or with a family member 09/23/2006 at 12:12 pm. SECTION 3: Pt did not get the cream.The pharmacy had to order the cream she forgot t go back and get it. She thinks it did help but now its back. This time its in different spots DOCTOR`S RESPONSE: susan 09/23/06 at 02:33 pm see if not improved MEDICATIONS: DOXYCYCLINE HYCLATE ORAL TABLET 100 MG, 1 Two Times A Day, 20 Dispensed, status: NEW PRESCRIPTION, 09/01/2006. CLINDAMYCIN PHOSPHATE EXTERNAL LOTION 1 %, 1 Two Times A Day, 30 Dispensed, status: NEW PRESCRIPTION, 09/01/2006. MEDROL (CASEY) ORAL TABLET 4 MG, DIRECTED, 1 Dispensed, status: CONTINUED, 09/23/2006. FINAL ACTION: in 09/23/06 at 03:04 pm Called pharmacy at 09/23/06 at 03:04 pm. lh Electronically Signed by: Nadira Clay on Saturday, September 23, 2006 documented in this encounter Plan of Treatment Not on file documented as of this encounter Visit Diagnoses Not on filedocumented in this encounter Care Teams Oracle Hyperion Consultant Relationship Specialty Start Date End Date Adis Mcdermott MD PCP - General Internal Medicine 07/08/14 documented as of this encounter
--- OUTSIDE RECORDS SUMMARY | 2024-08-18 10:27 | XMS_ITS | Encounter Summary ---
Author Organization [facility] Address [address] [place] [address] Care Team Providers Care Customer Success Representative Name Role Phone Adis Mcdermott MD Primary Care Provider Encounter Details Date Type Department Care Team (Late st Contact Info) Description 01/01/2000 Outpatient Historical [facility] Internal Medicine [address] [address] Shaheen Stokes MD [address] [place] [phone] Social History Tobacco Use Types Packs/Day Years Used Date Smoking Tobacco: Never Assessed Comments Unknown Sex and Gender Information Value Date Recorded Sex Assigned at Not on file Legal Sex Female 4:17 AM DIRECTOR HAIR Gender Identity Not on file Sexual Orientation Not on file documented as of this encounter Plan of Treatment Not on file documented as of this encounter Visit Diagnoses Not on filedocumented in this encounter Care Teams Customer Success Representative Relationship Specialty Start Date End Date Adis Mcdermott MD PCP - General Internal Medicine 07/08/14 documented as of this encounter
--- OUTSIDE RECORDS SUMMARY | 2024-08-18 10:27 | XMS_ITS | Encounter Summary ---
Author Organization [facility] Address [address] [place] [address] Care Team Providers Care Head Of Sales And Marketing Name Role Phone Adis Mcdermott MD Primary Care Provider [phone] Encounter Details Date Type Department Care Team (Latest Contact Info) Description 07/23/2000 Outpatient Historical [facility] EL[place] Stokes, [place] [address] [facility] [address] [place] [address] Undiagnosed cardiac murmurs (Primary Dx) Social History Tobacco Use Types Packs/Day Years Used Date Smoking Tobacco: Never Assessed Comments Unknown Sex and Gender Information Value Date Recorded Sex Assigned at Not on file Legal 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
--- OUTSIDE RECORDS SUMMARY | 2024-08-18 10:27 | XMS_ITS | Encounter Summary ---
Author Organization [facility] Address [address] [place] [address] Care Team Providers Care Chiller Technician Name Role Phone Adis Mcdermott MD Primary Care Provider [phone] Encounter Details Date Type Department Care Team (Late st Contact Info) Description 07/22/2000 Outpatient Historical [facility] Internal Medicine [address] [address] Shaheen Stokes MD [address] [place] [phone] Social History Tobacco Use Types Packs/Day Years Used Date Smoking Tobacco: Never Assessed Comments Unknown Sex and Gender Information Value Date Recorded Sex Assigned at Not on file 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
--- OUTSIDE RECORDS SUMMARY | 2024-08-18 10:27 | XMS_ITS | Encounter Summary ---
Author Organization [facility] Address 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 CURRENT ALLERGY LIST: NO KNOWN ALLERGIES PHARMACY NUMBER: [phone] *call patient back also* PROBLEMS: COUGH:Patient complains of cough. chest feels tight still causing her to have panic attacks. She is taking the meds you gave SECTION 1: REQUESTED ACTION robert 06/30/07 at 09:36 am: MEDICATION REQUEST: Patient wants medications and can not come in. DOCTOR`S RESPONSE: susan 06/30/07 at 10:10 am MEDICATIONS: Call in to Pharmacy ALBUTEROL INHALATION AEROSOL SOLUTION 90 MCG/ACT, 2 Four Times A Day, As Needed, 1 Dispensed, status: NEW PRESCRIPTION, 06/30/2007. ALPRAZOLAM ORAL TABLET 0.25 MG, 1 Two Times A Day, As Needed, 30 Dispensed, status: NEW PRESCRIPTION, 06/30/[address]. do not drive if taking FINAL ACTION: terrie 06/30/07 at 12:30 pm Spoke with patient 06/30/07 at 12:32 pm. Called pharmacy at 06/30/07 at 12:30 pm. auto line Electronically Signed by: Karla Mata on Saturday, June 30, 2007 * Adis Mcdermott MD - 10/01/2007 5:27 PM CDT TIME:03:56 pm PATIENT`S HOME PHONE: PATIENT`S WORK PHONE: PATIENT`S INSURANCE: [employer] P[employer] WHO TOOK THE CALL: Emerald Sandoval L GENERAL INFORMATION WHO CALLED: Pharmacy called. PHARMACY NUMBER: [phone] SECTION 1: REQUESTED ACTION hilary 06/30/07 at 03:57 pm: MEDICATION REQUEST: MEDICATION REQUEST: Pre-Authorization is required for. Prevacid DOCTOR`S RESPONSE: susan 06/30/07 at 02:56 pm what will they cover? FINAL ACTION: hilary 07/01/07 at 05:28 pm Left message on patient`s recorder or with a family member 07/02/2007 at 06:29 pm. Called pharmacy at 07/01/07 at 05:28 pm. Asked what meds covered. SECTION 2: Talk with the pharmacy none of these type of meds are covered DOCTOR`S RESPONSE: susan 07/03/07 at 03:26 pm try otc prilosec qd, this is cheapest option FINAL ACTION: robert 07/06/07 at 12:21 pm Spoke with patient 07/06/07 at 12:21 pm. Electronically Signed by: Thania Ruvalcaba on Friday, July 06, 2007 documented in this encounter Plan of Treatment Not on file documented as of this encounter Visit Diagnoses Not on filedocumented in this encounter Care Teams Boxing Inspector Relationship Specialty Start Date End Date Adis Mcdermott MD PCP - General Internal Medicine 07/08/14 documented as of this encounter
--- OUTSIDE RECORDS SUMMARY | 2024-08-18 10:27 | XMS_ITS | Encounter Summary ---
Author Organization [facility] Address [address] [place] [address] Care Team Providers Care Nurse Infection Control Name Role Phone Adis Mcdermott MD Primary Care Provider [phone] Encounter Details Date Type Department Care Team (Late st Contact Info) Description 07/28/2000 Outpatient Historical [facility] Internal Medicine [address] [address] Shaheen Stokes MD [address] [place] [phone] Social History Tobacco Use Types Packs/Day Years Used Date Smoking Tobacco: Never Assessed Comments Unknown Sex and Gender Information Value Date Recorded Sex Assigned at Not on file Legal 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
--- OUTSIDE RECORDS SUMMARY | 2024-08-18 10:27 | XMS_ITS | Encounter Summary ---
Author Organization [facility] Address [address] [place] [address] Care Team Providers Care Supervisor Record Press Name Role Phone Adis Mcdermott MD Primary Care Provider [phone] Encounter Details Date Type Department Care Team (Late st Contact Info) Description 04/23/2012 Chart Note [facility] [place] [address] [facility] [address] [place] [address] Myra Osborne, Physical Therapist Social History Tobacco Use Types Packs/Day Years Used Date Smoking Tobacco: Never Smokeless Tobacco: Never Alcohol Use Standard Drinks/Week Comments Yes 0 (1 standard drink = 0.6 oz pur e alcohol) Comments No Sex and Gender Information Value Date Recorded Sex Assigned at Not on file Legal Sex Female 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 Physical Therapy Discharge Summary Patient: Judy Schwartz Date: 04/23/2012 Date of : 1980 Physician: Adis Mcdermott Diagnosis: LBP, lumbar radiculopathy Judy Schwartz was seen from 01/24/12 to 02/07/12 for a total of 2 visits with 4 cancellations and 0no shows. This patient did not return for further therapy visits following the last session noted above, therefore a complete re-evaluation of status was not completed. Treatments consisted of: HEP Instruction, Posture/Body Mechanics and Neuromuscular Re-Education Therapeutic Exercise to increase Strength, ROM and Stablization. Objective Measurements: see initial evaluation 04/23/12 The patient discharged from therapy secondary to noncompliance. Please contact me if you have any questions. Thank you for this referral. Myra Osborne [facility] [address] [place] [address]. [address] [place] [address] NIA BOX OPERATOR documented in this encounter Plan of Treatment Not on file documented as of this encounter Visit Diagnoses Not on filedocumented in this encounter Care Teams Supervisor Record Press Relationship Specialty Start Date End Date Adis Mcdermott MD PCP - General Internal Medicine 07/08/14 documented as of this encounter
--- OUTSIDE RECORDS SUMMARY | 2024-08-18 10:27 | XMS_ITS | Encounter Summary ---
Author Organization [facility] Address 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 CHIEF COMPLAINT Patient complains of head congestion, cough, fever, sore throat., glands swollen HISTORY: coug michelle fever ache x 2d, concern aunt recently of flu, doing better on med for depn--improved after broke up with boyfriend PHYSICAL EXAMINATION: CONSTITUTIONAL: GENERAL APPEARANCE: Healthy appearing patient in no distress. EARS, NOSE, MOUTH AND THROAT: EARS: EFFUSION PRESENT BILATERALLY, TYMPANIC MEMBRANES INFLAMED BILATERALLY. ORAL: OROPHARYNX ERYTHEMATOUS. NECK/THYROID: Trachea midline. No thyroid enlargement, tenderness, or mass. No supraclavicular or cervical adenopathy. RESPIRATORY: Clear to auscultation and percussion. Normal respiratory effort. CARDIOVASCULAR: CARDIAC: Regular rhythm. No murmurs, rubs, or gallops. ARTERIAL: No aortic bruits. EDEMA/VARICOSITIES OF EXTREMITIES: No edema or varicosities. LYMPHATICS: A TENDER, ENLARGED LYMPH NODE NOTED IN THE ANTERIOR CERVICAL CHAINS BILATERALLY. GASTROINTESTINAL: ABDOMEN: Soft, non-tender, without masses. Bowel sounds active. LIVER/SPLEEN/KIDNEY: No hepatosplenomegaly, tenderness or nodularity. Kidneys not palpable. ASSESSMENT/PLAN: 311-DEPRESSION discussed, contmed, reassess 461.9-SINUSITIS UNSPECIFIED flu vs other rx, advised yrly flu vaccine MEDICATIONS: CEFUROXIME AXETIL ORAL TABLET 250 MG, 1 Two Times A Day, 20 Dispensed, 10 Duration/Days Supply, status: NEW PRESCRIPTION, 06/26/2007. TAMIFLU ORAL CAPSULE CONVENTIONAL 75 MG, 1 Two Times A Day, 10 Dispensed, status: NEW PRESCRIPTION,06/26/2007. Patient Education: Risks, benefits, and possible side effects of medication(s) were reviewed with the patient. The patient was allowed to ask questions to stated satisfaction. RETURN VISIT : Instructed to call if not improving. Electronically Signed by: Adis Mcdemrott MD on June 26, 2007 documented in this encounter Plan of Treatment Not on file documented as of this encounter Visit Diagnoses Not on filedocumented in this encounter Care Teams Supervisor Unloading Relationship Specialty Start Date End Date Adis Mcdermott MD PCP - General Internal Medicine 07/08/14 documented as of this encounter
--- OUTSIDE RECORDS SUMMARY | 2024-08-18 10:27 | XMS_ITS | Encounter Summary ---
Author Organization [facility] Address [address] [place] [address] Care Team Providers Care Manager Managed Care Name Role Phone Adis Mcdermott MD Primary Care Provider [phone] Encounter Details Date Type Department Care Team (Late st Contact Info) Description 11/25/2000 Outpatient Historical [facility] Internal Medicine [address] [address] Shaheen Stokes MD [address] [place] [phone] Social History Tobacco Use Types Packs/Day Years Used Date Smoking Tobacco: Never Assessed Comments Unknown Sex and Gender Information Value Date Recorded Sex Assigned at Not on file Legal Sex Female 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
--- OUTSIDE RECORDS SUMMARY | 2024-08-18 10:27 | XMS_ITS | Encounter Summary ---
Author Organization [facility] Address [address] [place] [address] Care Team Providers Care Debit Agent Name Role Phone Adis Mcdermott MD Primary Care Provider [phone] Encounter Details Date Type Department Care Team (Late st Contact Info) Description 06/21/2002 Outpatient Historical [facility] Internal Medicine [address] [address] Shaheen Stokes MD [address] [place] [phone] Social History Tobacco Use Types Packs/Day Years Used Date Smoking Tobacco: Never Assessed Comments Unknown Sex and Gender Information Value Date Recorded Sex Assigned at Not on file Legal 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
--- OUTSIDE RECORDS SUMMARY | 2024-08-18 10:27 | XMS_ITS | Encounter Summary ---
Author Organization [facility] Address [address] [place] [address] Care Team Providers Care Power Switchboard Operator Name Role Phone Adis Mcdermott MD Primary Care Provider [phone] Encounter Details Date Type Department Care Team (Late st Contact Info) Description 04/24/2007 Orders Only [facility] Internal Medicine [address] [address] Adis Mcdermott MD [address] [place] [phone] Social History Tobacco Use Types Packs/Day Years Used Date Smoking Tobacco: Never Assessed Comments Unknown Sex and Gender Information Value Date Recorded Sex Assigned at Not on file Legal Sex Female 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 CHIEF COMPLAINT Patient here for follow up depression. HISTORY: hx of depn , anger issues, crying 1-2 mo, no suicidal ideation, inc sinus 1-2 weeks PHYSICAL EXAMINATION: EARS, NOSE, MOUTH AND THROAT: EARS: EFFUSION PRESENT BILATERALLY. ORAL: Inspection of gums, lips, palate, and teeth normal. No scars, lesions, or masses. Oral mucosaunremarkable with non-inflamed posterior pharynx. NECK/THYROID: Trachea midline. No thyroid enlargement, tenderness, or mass. No supraclavicular or cervical adenopathy. RESPIRATORY: Clear to auscultation and percussion. Normal respiratory effort. CARDIOVASCULAR: CARDIAC: Regular rhythm. No murmurs, rubs, or gallops. EDEMA/VARICOSITIES OF EXTREMITIES: No edema or varicosities. PSYCHIATRIC: DEPRESSED AFFECT, CRIED DURING THE EXAM. ASSESSMENT/PLAN: 311-DEPRESSION discussed, start rx, fhx bipolar--pt no sx MEDICATIONS: CITALOPRAM HYDROBROMIDE ORAL TABLET 20 MG, 1 Every Day, 30 Dispensed, 4 Fills, status: NEW PRESCRIPTION, 04/24/2007. 461.9-SINUSITIS UNSPECIFIED rx MEDICATIONS: ZITHROMAX Z-CASEY ORAL TABLET 250 MG, DIRECTED, 1 Dispensed, 2 Fills, status: CONTINUED, 04/24/2007. PREVENTIVE COUNSELING The patient was counseled regarding the appropriate use of alcohol. Patient Education: The patient was allowed to ask questions to stated satisfaction. Risks, benefits, and possible side effects of medication(s) were reviewed with the patient.mother RETURN VISIT : Patient instructed to return in 2 months. Electronically Signed by: Adis Mcdermott MD on Tuesday, April 24, 2007 documented in this encounter Plan of Treatment Not on file documented as of this encounter Visit Diagnoses Not on filedocumented in this encounter Care Teams Power Switchboard Operator Relationship Specialty Start Date End Date Adis Mcdermott MD PCP - General Internal Medicine 07/08/14 documented as of this encounter
--- OUTSIDE RECORDS SUMMARY | 2024-08-18 10:27 | XMS_ITS | Encounter Summary ---
Author Organization [facility] Address [address] [place] [address] Care Team Providers Care Processing Tech Name Role Phone Adis Mcdermott MD Primary Care Provider [phone] Encounter Details Date Type Department Care Team (Late st Contact Info) Description 06/26/2007 Outpatient Historical [facility] Internal Medicine [address] [address] Adis Mcdermott MD [address] [place] [phone] Social History Tobacco Use Types Packs/Day Years Used Date Smoking Tobacco: Never Assessed Comments Unknown Sex and Gender Information Value Date Recorded Sex Assigned at Not on file Legal Sex Female 4:17 AM DEVELOPMENT ENG Gender Identity Not on file Sexual Orientation Not on file documented as of this encounter Last Filed Vital Signs Vital Sign Reading Time Taken Comments Blood Pressure 110/60 06/26/2007 2:00 PM DEVELOPMENT ENG Pulse - - Temperature 37.4 C (99.4 F) 06/26/2007 2:00 PM DEVELOPMENT ENG Respiratory Rate - - Oxygen Saturation - - Inhaled Oxygen Concentration - - Weight 65.8 kg (145 lb) 06/26/2007 2:00 PM DEVELOPMENT ENG Height - - Body Mass Index - - documented in this encounter Plan of Treatment Not on file documented as of this encounter Visit Diagnoses Not on filedocumented in this encounter Care Teams Processing Tech Relationship Specialty Start Date End Date Adis Mcdermott MD PCP - General Internal Medicine 07/08/14 documented as of this encounter
--- OUTSIDE RECORDS SUMMARY | 2024-08-18 10:27 | XMS_ITS | Encounter Summary ---
Author Organization [facility] Address [address] [place] [address] Care Team Providers Care Carpenter Labor Supervisor Name Role Phone Adis Mcdermott MD Primary Care Provider [phone] Encounter Details Date Type Department Care Team (Late st Contact Info) Description 09/25/1999 Outpatient Historical [facility] Internal Medicine [address] [address] Shaheen Stokes MD [address] [place] [phone] Social History Tobacco Use Types Packs/Day Years Used Date Smoking Tobacco: Never Assessed Comments Unknown Sex and Gender Information Value Date Recorded Sex Assigned at Not on file Legal 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
--- OUTSIDE RECORDS SUMMARY | 2024-08-18 10:27 | XMS_ITS | Patient Health Record ---
Author Organization [employer] Address [address] [facility] [address] [place] [address] Care Team Providers Care Air Quality Instrument Specialist Name Role Phone Adis Mcdermott MD Primary Care Provider Unavaila ble Reason For Referral No Information Medications Medication SIG (Take, Route, Frequency, Duration) Notes Start Date End Date Status OTC/Vitamins MVI, Mediherb, Optigreens Active Neomycin Sulfate 500 MG 1 tablet Orally bid for 10 day(s) 09/22/2018 Active Zoloft Active Levothyroxine Sodium Active Immunizations Vaccine Route Administration Date Status Comme nts Influenza Vaccination Unknown 01/26/2018 Administered Social History Tobacco Use: Social History Observation Description Date Details (start date - stop date) Never Smoker NA - NA Tobacco Use/Smoking Question Answer Notes Are you a nonsmoker Problems Problem Type SNOMED Code ICD Code Onset Dates Problem Status W/U Status Risk Notes Problem Epigastric pain (57715803) Epigastric pain (R10.13) Active confirmed Problem 193239160 Flatulence (R14.3) Active confirmed Problem 134770080 Small intestinal bacterial overgrowth (K63.89) Active confirmed Problem 335744182 Bloating (R14.0) Active confirmed She has been treated for SIBO twice since August and had noticeable improvement in symptoms. However, she still has gas and bloating, which seems to be worse after eating and during her menstrual cycle. She underwent food allergy testing and has since eliminated peanuts and dairy from her diet. She tested negative for fructose intolerance. She is up to date on seeing the molder sweep and had a negative pelvic ultrasound last year. Differential diagnosis includes SIBO, IBS, or others. Problem Irritable bowel syndrome (54224177) Irritable bowel syndrome (K58.9) Active confirmed Problem 700059612 Abdominal bloating (R14.0) Active confirmed Ms. Isbell comes in today with symptoms of abdominal bloating and gas she has been experiencing over the past year. There are no other associated symptoms or alarm features. She was evaluated by her molder sweep with an ultrasound. Her PCP ordered recent lab work, which was all normal. Suspect she has small intestinal bacterial overgrowth. Other thoughts include food intolerance or IBS. Unlikely considerations include GERD, peptic ulcer, cholelithiasis, partial bowel obstruction, IBD, or other. Problem 819587474 Loose stools (R19.5) Active confirmed She has been having 1 bowel movement per day, which she describes as being mushy and semi-formed . There has not been any blood in the stool. Frontal diagnosis includes SIBO, IBS, food intolerance, or others. Problem 06255500 Abdominal discomfort (R10.9) Active confirmed She has some mild abdominal discomfort around the periumbilical region. Problem 985365242 Flatus (R14.3) Active confirmed Problem Flatulence, eructation and gas pain (204859731) Abdominal distension (R14.0) Active confirmed Plan Of Treatment Pending Test Test Name Order Date Upper Endoscopy 10/26/2018 Initiate SIBO 08/28/2017 Initiate Fructose 03/16/2018 Insurance Providers Payer Name Payer Address Payer Phone Subscriber Number Group Number Insured Name Patient Relationship to Insured Coverage Start Date Coverage End Date [employer] Access [employer] PPO E2 [address] [place] [address] [id number] Judy Isbell Self - patient is the insured Medical (General) History Medical History History ICD Code IBS SIBO GERD Ulcers H.Pylori Anxiety/Depression Thyroid Disease Surgical History Surgery Date(Month/Year) Colonoscopy 12/2018 EGD 11/2018 Tonsillectomy
--- OUTSIDE RECORDS SUMMARY | 2024-08-18 10:27 | XMS_ITS | Encounter Summary ---
Author Organization [facility] Address [address] [place] [address] Care Team Providers Care Distribution Clerk Name Role Phone Adis Mcdermott MD Primary Care Provider [phone] Encounter Details Date Type Department Care Team (Late st Contact Info) Description 08/20/1999 Outpatient Historical [facility] Internal Medicine [address] [address] Shaheen Stokes MD [address] [place] [phone] Social History Tobacco Use Types Packs/Day Years Used Date Smoking Tobacco: Never Assessed Comments Unknown Sex and Gender Information Value Date Recorded Sex Assigned at Not on file Legal Sex Female 4:17 AM REHAB SERVICES AIDE Gender Identity Not on file Sexual Orientation Not on file documented as of this encounter Plan of Treatment Not on file documented as of this encounter Visit Diagnoses Not on filedocumented in this encounter Care Teams Distribution Clerk Relationship Specialty Start Date End Date Adis Mcdermott MD PCP - General Internal Medicine 07/08/14 documented as of this encounter
--- OUTSIDE RECORDS SUMMARY | 2024-08-18 10:27 | XMS_ITS | Encounter Summary ---
Author Organization [facility] Address [address] [place] [address] Care Team Providers Care Staff Nuclear Weapons Officer Name Role Phone Adis Mcdermott MD Primary Care Provider [phone] Encounter Details Date Type Department Care Team (Late st Contact Info) Description 05/07/2000 Outpatient Historical [facility] Internal Medicine [address] [address] Shaheen Stokes MD [address] [place] [phone] Social History Tobacco Use Types Packs/Day Years Used Date Smoking Tobacco: Never Assessed Comments Unknown Sex and Gender Information Value Date Recorded Sex Assigned at Not on file Legal Sex Female 4:17 AM LABORATORY SUPERVISOR Gender Identity Not on file Sexual Orientation Not on file documented as of this encounter Plan of Treatment Not on file documented as of this encounter Visit Diagnoses Not on filedocumented in this encounter Care Teams Staff Nuclear Weapons Officer Relationship Specialty Start Date End Date Adis Mcdermott MD PCP - General Internal Medicine 07/08/14 documented as of this encounter
--- OUTSIDE RECORDS SUMMARY | 2024-08-18 10:27 | XMS_ITS | Encounter Summary ---
Author Organization [facility] Address [address] [place] [address] Care Team Providers Care Yacht Rigger Name Role Phone Adis Mcdermott MD Primary Care Provider [phone] Encounter Details Date Type Department Care Team (Late st Contact Info) Description 11/30/2001 Outpatient Historical [facility]3] Internal Medicine [address] [address] Shaheen Stokes MD [address] [place] [phone] Social History Tobacco Use Types Packs/Day Years Used Date Smoking Tobacco: Never Assessed Comments Unknown Sex and Gender Information Value Date Recorded Sex Assigned at Not on file Legal Sex Female 4:17 AM CURBER Gender Identity Not on file Sexual Orientation Not on file documented as of this encounter Plan of Treatment Not on file documented as of this encounter Visit Diagnoses Not on filedocumented in this encounter Care Teams Yacht Rigger Relationship Specialty Start Date End Date Adis Mcdermott MD PCP - General Internal Medicine 07/08/14 documented as of this encounter
--- OUTSIDE RECORDS SUMMARY | 2024-08-18 10:27 | XMS_ITS | Encounter Summary ---
Author Organization [facility] Address [address] [place] [address] Care Team Providers Care Guard Dance Hall Name Role Phone Adis Mcdermott MD Primary Care Provider [phone] Encounter Details Date Type Department Care Team (Late st Contact Info) Description 06/07/2008 Outpatient Historical [facility] Adis Blake MD [address] [place] [address] [place] [address] Esophageal Reflux Social History Tobacco Use Types Packs/Day Years Used Date Smoking Tobacco: Never Alcohol Use Standard Drinks/Week Comments Yes 0 (1 standard drink = 0.6 oz pur e alcohol) Comments No Sex and Gender Information Value Date Recorded Sex Assigned at Not on file Legal Sex Female 4:17 AM BALL WARPER TENDER Gender Identity Not on file Sexual Orientation Not on file documented as of this encounter Plan of Treatment Not on file documented as of this encounter Procedures Procedure Name Priority Date/Time Associated Diagnosis Comments POC , URINE Routine 06/07/2008 9:32 AM BALL WARPER TENDER documented in this encounter Results * POC , URINE (06/07/2008 9:32 AM BALL WARPER TENDER) , URINE POC Negative Negative [facility] Urine specimen (specimen) 06/07/2008 9:32 AM BALL WARPER TENDER 06/07/2008 9:32 AM BALL WARPER TENDER us Adis Blake MD POINT OF CARE TESTING Final Resu lt INTERFACE SYSTEM Refer to clinic/hospital department [facility] CLIA# [id number] [address] [place] [address] documented in this encounter Visit Diagnoses Diagnosis Esophageal reflux documented in this encounter Care Teams Guard Dance Hall Relationship Specialty Start Date End Date Adis Mcdermott MD PCP - General Internal Medicine 07/08/14 documented as of this encounter
--- OUTSIDE RECORDS SUMMARY | 2024-08-18 10:27 | XMS_ITS | Encounter Summary ---
Author Organization [facility] Address [address] [place] [address] Care Team Providers Care Donor Recruitment Manager Name Role Phone Adis Mcdermott MD Primary Care Provider [phone] Encounter Details Date Type Department Care Team (Late st Contact Info) Description 04/24/[address] [facility] Internal Medicine [address] [address] Adis Mcdermott MD [address] [place] [phone] Social History Tobacco Use Types Packs/Day Years Used Date Smoking Tobacco: Never Assessed Comments Unknown Sex and Gender Information Value Date Recorded Sex Assigned at Not on file Legal Sex Female 4:17 AM SUBSCRIPTION CREW LEADER Gender Identity Not on file Sexual Orientation Not on file documented as of this encounter Plan of Treatment Not on file documented as of this encounter Visit Diagnoses Not on filedocumented in this encounter Care Teams Donor Recruitment Manager Relationship Specialty Start Date End Date Adis Mcdermott MD PCP - General Internal Medicine 07/08/14 documented as of this encounter
--- OUTSIDE RECORDS SUMMARY | 2024-08-18 10:27 | XMS_ITS | Clinical Summary ---
Author Organization [facility] Address [address] [place] [address] Care Team Providers Care Surveyor Helper Rod Name Role Phone Adis Mcdermott MD Primary Care Provider Allergies Active Allergy Reactions Criticality Noted Date Comments Amoxicillin-Pot Clavulanate Rash Low 04/30/19 18 No Known Allergies 12/29/2002 Medications naproxen sodium (ANAPROX DS) 550 mg tablet 07/31/2022 Active sertraline (Zoloft) 50 mg tabletIndication s:Mild episode of recurrent major depressive disorder Take 1 Tablet (50 mg) by mouth daily. 90 Tablet 3 10/23/2022 Active Active Problems Patient Care Coordination No te Formatting of this note migh t be different from the original. Heath Harry MD--Production Planning Supervisor ([facility] @ ) Prev 10/23/22 Problem Noted Date Diagnosed Date Recurrent major depressive disorder 07/01/2016 JFK - pltcs 05/24, girl Andree 05/24/2014 Hypothyroidism 08/06/2013 Anxiety state 05/05/2013 Mild episode of recurrent major depressive disor faith 04/24/2007 Esophageal reflux 01/27/2007 Asthma 03/04/2006 Anemia, unspecified 02/24/2003 Allergic rhinitis 12/29/2002 Resolved Problems Problem Noted Date Diagnosed Date Resolved Date JFK: Vag bleeding, r/o PPROM (exam neg, HELDER 8), exp mgmt/obs, low lying placenta, O neg, gbs- 05/22/2014 07/05/2014 ROL 05/18/2014 07/05/2014 jfk, ptc, ?uti (fosfomycin 3 mg po x 1), s/p procardia 10mg x 1, wbc 9.8, O neg, GBS unk --> DC 04/30/2014 07/05/2014 Low-lying placenta 04/18/2014 5 Rash and other nonspecific skin eruption 09/01/2006 12/09/2007 Contact dermatitis and other eczema, due to unspecified cause 03/04/2006 12/09/2007 Need for prophylactic vaccin ation against Streptococcus pneumoniae (pneumococcus) 03/04/2006 12/09/2007 Sting of hornets, wasps, and bees as the cause of poisoning and toxic reactions(E905.3) 11/26/2005 12/09/2007 Dermatitis due to cosmetics 04/03/2005 12/09/2007 Chalazion 02/27/2005 12/09/2007 Other malaise and fatigue 12/05/2004 Screening for other disorder s of blood and blood-forming organs 12/05/2004 12/09/2007 Screening for thyroid disorder 12/05/2004 12/09/2007 Screening for lipoid disorders 12/05/2004 12/09/2007 Routine general medical exam ination at a health care facility 12/05/2004 12/09/2007 Acute upper respiratory infe ctions of unspecified site 11/21/2004 12/09/2007 Deviated nasal septum 07/23/20042007 Abnormal weight gain 05/09/2004 008 Other sign and symptom in breast 04/02/2004 12/09/2007 Acute sinusitis, unspecified 09/13/2003 12/09/2007 Chest pain, unspecified 06/22/200311/26 Benign neoplasm of skin, site unspecified 06/22/2003 12/09/2007 Bronchitis, not specified as acute or chronic 02/15/2012/09/2007 Panic disorder without agoraphobia 12/29/2002 12/09/2007 Family history of other card iovascular diseases(V17.49) 12/29/2002 12/09/2007 Overview (05/23/2010): Updating IMO/ICD9 Code and Description Family history of other musc uloskeletal diseases(V17.89) 12/29/2002 12/09/2007 Overview (05/23/2010): Updating IMO/ICD9 Code and Description Immunizations Immunization Administration Dates Next Due (ADACEL/BOOSTRIX)(10 YR UP) TDAP VACCINE, 0.5ML, IM 04/12/2017,03/21/2014,11/10/2008 (PNEUMOVAX 23)(50 YRS UP) PN EUMOCOCCAL POLYSACCHARIDE (PPV23) 0.5 ML, IM 08/24/2018,03/04/2006 (TDVAX)(7 YRS UP) TETANUS AN D DIPHTHERIA TOXOIDS, ADSORBED (2 LF OF TETANUS TOXOID AND 2 LF OF DIPHTHERIA TOXOID), 0.5ML (PF), IM 06/28/2003,04/28/1994 Influenza Seasonal Unspecifi ed Formulation IM 02/15/2019,01/26/2018,05/24/2015,05/17,02/05/2009 Influenza Vaccine Quad Split 18 Yrs+ Im 03/30/2018 Influenza Vaccine Split 3+ Yrs PF IM 01/21/2014 Rho (D) IMMUNE GLOBULIN 1,50 0 UNIT(300 MCG) INJECTION 05/23/2014,03/21/2014 Family History Medical History Relation Name Comments Heart Disease Father Grandpa Heart Disease Maternal Grandfather Grandpa AL age 45- Cancer Maternal Grandmother Grandma Healthy Mother Relation Name Status Comments Daughter ANDREE Alive Father Grandpa Alive Maternal Grandfather Grandpa Maternal Grandmother Grandma Mother Alive Social History Tobacco Use Types Packs/Day Years Used Date Smoking Tobacco: Never Smokeless Tobacco: Never Tobacco Cessation:Counseling Given: Not Answered Alcohol Use Standard Drinks/Week Comments Yes 0 (1 standard drink = 0.6 oz pur e alcohol) Social Comments No Sex and Gender Information Value Date Recorded Sex Assigned at Not on file Legal Sex Female 4:17 AM TEST DESIGNER Gender Identity Not on file Sexual Orientation Not on file Occupation Industry Job Start Date Job End Date Not on file Not on file Not on file Not on file Last Filed Vital Signs Vital Sign Reading Time Taken Comments Blood Pressure 114/81 10/23/2022 12:30 PM CDT Pulse 62 10/23/2022 12:30 PM CDT Temperature 35.9 C (96.6 F) 10/23/2022 12:30 PM CDT Respiratory Rate 20 12/12/2021 1:41 PM CDT Oxygen Saturation 98% 10/23/2022 12:30 PM CDT Inhaled Oxygen Concentration - - Weight 72.2 kg (159 lb 3.2 oz) 10/23/2022 12:30 PM CDT Height 172.7 cm (5' 8 ) 10/23/2022 12:30 PM CDT Body Mass Index 24.21 10/23/2022 12:30 PM CDT Plan of Treatment Health Maintenance Due Date Last Done Comments Pre-Diabetes and Diabetes Screening 1980 HEPATITIS B VACCINES (1 of 3 - 19+ 3-dose series) 11/27/1998 CERVICAL CANCER SCREENING 06/17/2017 PAP SMEAR 06/17/2017 06/17/2016, 05/30, 01/09/2015, Additional history exists HPV/Cotest (21-29) 06/17/2021 06/17/2016, 0 01/09/2015, 12/29/2013 HPV/Cotest (30-65) 06/17/2021 06/17/2016, 0 01/09/2015, 12/29/2013 INFLUENZA VACCINE (#1) 2023 9, 03/30/2018, 01/26/2018, Additional history exists Preventative Visit- Commercial 04/28/2024 10/23/2022, 11/26/2019, 08/24/2018, Additional history exists BREAST CANCER SCREENING 04/30/2024 04/30/19, 04/30/2023, 02/06/2022, Additional history exists DTAP/TDAP/TD VACCINES (5 - Td or Tdap) 04/12/2027 04/12/2017, 03/21/2014, 11/10/2008, Additional history exists HPV VACCINES Aged Out No longer eligi ble based on patient's age to complete this topic Procedures Procedure Name Priority Date/Time Associated Diagnosis Comments MAMMO 3D CITLALY SCREEN BILAT W OR WO CAD Routine 04/30/2023 8:29 AM TEST DESIGNER Visit for screening mammogram CERV/VAG CYTO SCREEN PAP W/HPV Routine 06/17/2016 4:18 PM TEST DESIGNER Screening for malignant neoplasm of cervix Cervical smear, as part of routine gynecological examination from Last 3 Months or Most Recently Relevant to Health Maintenance Results * MAMMO SCRN BILAT 3D CITLALY W OR WO CAD (04/30/2023 8:29 AM TEST DESIGNER) Anatomical Region Laterality Modality Breast Bilateral Mammography Impressions 04/30/2023 11:07 AM TEST DESIGNER : No mammographic evidence of malignancy. BI-RADS ASSESSMENT: 1 - Negative RECOMMENDATION: Routine annual screening mammography. Narrative 04/30/2023 11:07 AM TEST DESIGNER EXAM: MAMMO SCRN BILAT 3D CITLALY W OR WO CAD INDICATION: Screening COMPARISON: 01/23/2022 MAMMO SCREEN BILAT W OR WO CAD BREAST COMPOSITION: The breasts are heterogeneously dense, which may obscure small masses. FINDINGS: RIGHT BREAST: There are no suspicious masses, calcifications, or areas of architectural distortion. LEFT BREAST: There are no suspicious masses, calcifications, or areas of architectural distortion. Adis Mcdermott MD MAMMO ORDERABLES Final Result * CERV/VAG CYTOPATH, THIN PREP EDGER MACHINE OPERATOR AND HPV (06/17/2016 4:18 PM TEST DESIGNER) CLINICAL INFORMATION SEE COMMENT 06/24/2016 10:11 AM TEST DESIGNER [facility] Comment:Information not prov ided LAST MENSTRUAL PERIOD SEE COMMENT 06/24/2016 10:11 AM TEST DESIGNER [facility] Comment:INFORMATION NOT PROV IDED PREV PAP: SEE COMMENT 06/24/2016 10:11 AM TEST DESIGNER [facility] Comment:NIL 01/09/15 PREV BX: SEE COMMENT 06/24/2016 10:11 AM TEST DESIGNER [facility] Comment:INFORMATION NOT PROV IDED SOURCE Endocervix 06/24/2016 10:11 AM TEST DESIGNER [facility] ADEQUACY: SEE COMMENT 06/24/2016 10:11 AM TEST DESIGNER [facility] Comment: Satisfactory for evaluation. Endocervical/transformation zone component present. Age and/or menstrual status not provided PAP INTERP SEE COMMENT 06/24/2016 10:11 AM TEST DESIGNER [facility] Comment:Negative for intraep ithelial lesion or malignancy. COMMENT SEE COMMENT 06/24/2016 10:11 AM TEST DESIGNER [facility] Comment: This Pap test has been evaluated with computer assisted technology. CYTOMETRY TECHNOLOGIST: SEE COMMENT 2016 10:11 AM [facility] Comment: LIZZIE CT(ASCP) CT screening location: [place] [address] Administration [place] [address] HPV E6/E7 Not Detected Not Detected 06/24/2016 10:11 AM [facility] Comment: This test was performed using the APTIMA HPV Assay ([employer] This assay detects E6/E7 viral messenger RNA (mRNA) from 14 high-risk HPV types (16,18,31,33,35,39,45,51,52,56,58,59,66,68). Genital SWAB OF ENDOCERVIX / Unknown Collection / Unknown 06/17/2016 4:18 PM TEST DESIGNER 06/17/2016 9:38 PM TEST DESIGNER Narrative [facility] - 06/24/2016 10:11 AM TEST DESIGNER Performing Organization Information: Site ID: Name: [facility] Address: [facility] Administration [place] [address] Director: Katia Lees MD July Andres BLAKELY PATHOLOGY/CYTOLOGY ORDERABLES Final Result [facility] from Last 3 Months or Most Recently Relevant to Health Maintenance Insurance [facility] BLUE ACCESS/TRUE BLUE PPO [facility] [id number] * Guarantor: OLD ACCT-OCC MED [facility] (OM) Account Type Relation to Patient Date of Phone Billing Address Corporate Other [address] [place] [address] * Guarantor: [id number] Account Type Relation to Patient Date of Phone Billing Address Workers Comp Employer Advance Directives For more information, please contact: [phone] * Full Code (Latest Code Status on File) Date Activated Date Inactivated Comments 05/24/2014 1:17 PM 05/27/2014 2:55 PM * Full Code Date Activated Date Inactivated Comments 05/24/2014 3:32 AM 05/24/2014 1:17 PM * Full Code Date Activated Date Inactivated Comments 05/22/2014 10:28 AM 05/23/2014 1:34 PM * Full Code Date Activated Date Inactivated Comments 04/30/2014 2:10 PM 05/01/2014 11:10 AM * Full Code Date Activated Date Inactivated Comments 03/18/2014 8:21 PM 03/19/2014 12:53 AM Care Teams Surveyor Helper Rod Relationship Specialty Start Date End Date Adis Mcdermott MD PCP - General Internal Medicine 3/13/15
--- OUTSIDE RECORDS SUMMARY | 2024-08-18 10:27 | XMS_ITS | Encounter Summary ---
Author Organization [facility] Address [address] [place] [address] Care Team Providers Care Experimental Display Builder Name Role Phone Adis Mcdermott MD Primary Care Provider Encounter Details Date Type Department Care Team (Late st Contact Info) Description 02/18/2007 Orders Only [facility] Internal Medicine [address] [address] Adis Mcdermott MD [address] [place] [phone] Social History Tobacco Use Types Packs/Day Years Used Date Smoking Tobacco: Never Assessed Comments Unknown Sex and Gender Information Value Date Recorded Sex Assigned at Not on file Legal Sex Female 4:17 AM DRIVER MANAGER Gender Identity Not on file Sexual Orientation Not on file documented as of this encounter Progress Notes * Adis Mcdermott MD - 09/11/2007 2:00 PM CDT TIME:10:20 am PATIENT`S HOME PHONE: PATIENT`S WORK PHONE: PATIENT`S INSURANCE: [employer] P[employer] WHO TOOK THE CALL: Emerald Sandoval L GENERAL INFORMATION ALTERNATIVE PHONE NUMBER: [phone] (call pt back) WHO CALLED: Patient called. CURRENT ALLERGY LIST: NO KNOWN ALLERGIES PHARMACY NUMBER: [phone] PROBLEMS: Since taking the Aciphex, pt became constipated after 2 days, but she continued to take the med. She didn't have a bm x 3 days & had to take a laxative. Was eating a fiber cereal. She stopped taking the Aciphex this past Sat. & went back on the Prevacid. Still having problems w/bowels. SECTION 1: REQUESTED ACTION licasl 02/18/07 at 10:24 am: MEDICATION REQUEST: to get her bowels regular again. Patient wants medications and can not come in. DOCTOR`S RESPONSE: ssuan 02/18/07 at 10:34 am MEDICATIONS: Call in to Pharmacy [facility], DIRECTED, 30 Duration/Days Supply, status: NEW PRESCRIPTION, 02/18/2007. FINAL ACTION: paz 02/18/07 at 10:44 am Spoke with patient 02/18/07 at 10:45 am. Called pharmacy at 02/18/07 at 10:45 am. Electronically Signed by: Nadira Clay on Friday, February 18, 2007 documented in this encounter Plan of Treatment Not on file documented as of this encounter Visit Diagnoses Not on filedocumented in this encounter Care Teams Experimental Display Builder Relationship Specialty Start Date End Date Adis Mcdermott MD PCP - General Internal Medicine 07/08/14 documented as of this encounter
--- OUTSIDE RECORDS SUMMARY | 2024-08-18 10:27 | XMS_ITS | Encounter Summary ---
Author Organization [facility] Address [address] [place] [address] Care Team Providers Care Ski Maker Name Role Phone Adis Mcdermott MD Primary Care Provider [phone] Encounter Details Date Type Department Care Team (Late st Contact Info) Description 07/03/2000 Outpatient Historical [facility] Internal Medicine [address] [address] Shaheen Stokes MD [address] [place] [phone] Social History Tobacco Use Types Packs/Day Years Used Date Smoking Tobacco: Never Assessed Comments Unknown Sex and Gender Information Value Date Recorded Sex Assigned at Not on file Legal Sex Female 4:17 AM WARD AIDE Gender Identity Not on file Sexual Orientation Not on file documented as of this encounter Plan of Treatment Not on file documented as of this encounter Visit Diagnoses Not on filedocumented in this encounter Care Teams Ski Maker Relationship Specialty Start Date End Date Adis Mcdermott MD PCP - General Internal Medicine 07/08/14 documented as of this encounter
--- OUTSIDE RECORDS SUMMARY | 2024-08-18 10:27 | XMS_ITS | Encounter Summary ---
Author Organization [facility] Address [address] [place] [address] Care Team Providers Care Gas Adjuster Name Role Phone Adis Mcdermott MD Primary Care Provider [phone] Encounter Details Date Type Department Care Team (Late st Contact Info) Description 07/21/2000 Outpatient Historical [facility] Internal Medicine [address] [address] Shaheen Stokes MD [address] [place] [phone] Social History Tobacco Use Types Packs/Day Years Used Date Smoking Tobacco: Never Assessed Comments Unknown Sex and Gender Information Value Date Recorded Sex Assigned at Not on file Legal Sex Female 4:17 AM CANDLE WRAPPER Gender Identity Not on file Sexual Orientation Not on file documented as of this encounter Plan of Treatment Not on file documented as of this encounter Visit Diagnoses Not on filedocumented in this encounter Care Teams Gas Adjuster Relationship Specialty Start Date End Date Adis Mcdermott MD PCP - General Internal Medicine 07/08/14 documented as of this encounter
--- OUTSIDE RECORDS SUMMARY | 2024-08-18 10:27 | XMS_ITS | Encounter Summary ---
Author Organization [facility] Address [address] [place] [address] Care Team Providers Care Slot Floor Supervisor Name Role Phone Adis Mcdermott MD Primary Care Provider [phone] Reason for Visit * Reason Onset Date Comments Needs Orders Written 04/23/2022 Encounter Details Date Type Department Care Team (Late st Contact Info) Description 04/23/2022 Telephone [facility] Primary Care [address] [place] [address] Adis Mcdermott MD [address] [facility] [address] [place] [address] Needs Orders Written Social History Tobacco Use Types Packs/Day Years Used Date Smoking Tobacco: Never Smokeless Tobacco: Never Alcohol Use Standard Drinks/Week Comments No 0 (1 standard drink = 0.6 oz pur e alcohol) Comments No Sex and Gender Information Value Date Recorded Sex Assigned at Not on file Legal Sex Female 4:17 AM LAUNDRY AID Gender Identity Not on file Sexual Orientation Not on file Occupation Industry Job Start Date Job End Date Not on file Not on file Not on file Not on file documented as of this encounter Miscellaneous Notes * Telephone Encounter - Sallie Newell - 04/24/2022 11:03 AM CST Called the patient and schedule a VV with PCP for 04/25/2022. DRY AID * Telephone Encounter - Louise Sandra FNP - 04/24/2022 7:46 AM LAUNDRY AID Needs appointment. Pt lives in [place], if she doesn't want to come in to the office can set up video visit with Dr. Mcdermott. DRY AID * Telephone Encounter - Debbie Navarro - 04/23/2022 1:28 PM CST Order Request H pylori Reason for Request: patient would like to be tested for H pylori. She had it over the summer and thinks the symptoms are returning. She is requesting a call back when the orders are placed. Call-back Number: [phone] (home) Home Phone Work Phone DRY AID documented in this encounter Plan of Treatment Not on file documented as of this encounter Visit Diagnoses Not on filedocumented in this encounter Care Teams Slot Floor Supervisor Relationship Specialty Start Date End Date Adis Mcdermott MD PCP - General Internal Medicine 07/08/14 documented as of this encounter
--- OUTSIDE RECORDS SUMMARY | 2024-08-18 10:27 | XMS_ITS ---
Author Organization [facility] Address [address] [address] Care Team Providers Care Mural Artist Name Role Phone Lydia Chavez Primary Care Provider [phone] REASON FOR VISIT lab f/u kristin// TEXT Medications Medication SIG (Take, Route, Frequency, Duration) [...] Problem Status W/U Status Risk Notes Problem Obstructive sleep apnea syndrome (disorder) (55252214) Obstructive sleep apnea (adult) (pediatric) (G47.33) Active confirmed Vital Signs Blood pressure systolic 124 mm Hg 05/28/19 25 Blood pressure diastolic 82 mm Hg 025 Heart Rate 72 /min 05/28/2024 Respiratory Rate 12 /min 05/28/2024 Height 68 in 05/28/2024 Weight 180 lbs 05/28/2024 BMI 27.37 kg/m2 05/28/2024 Encounters Encounter Location Date Provider Diagnosis [facility] - Lydia Chavez [address] [place] [address] 05/28/2024 Lydia Chavez Other fatigue R53.83 ; Obstructive sleep apnea (adult) (pediatric) G47.33 ; Autoimmune thyroiditis E06.3 ; Abnormal weight gain R63.5 ; Impaired fasting glucose R73.01 ; Obesity, unspecified E66.9 and Dietary counseling and surveillance Z71.3 Assessments Encounter Date Diagnosis (ICD Code) Assessment Notes Treatment Notes Treatment Clinical Notes Section Notes 05/28/2024 Other fatigue (ICD-10 - R53.83) 05/28/2024 Obstructive sleep apnea (adult) (pediatric) (ICD-10 - G47.33) 05/28/2024 Autoimmune thyroiditis (ICD-10 - E06.3) 05/28/2024 Abnormal weight gain (ICD-10 - R63.5) 05/28/2024 Impaired fasting glucose (ICD-10 - R73.01) 05/28/2024 Obesity, unspecified (ICD-10 - E66.9) 05/28/2024 Dietary counseling and surveillance (ICD-10 - Z71.3) 05/28/2024 Other Assessment and Plan: Suspected Sleep [...] communicating with other health home health care coordinator, documenting clinical information in the electronic or [...] all questions were answered. Plan Of Treatment Treatment Notes Assessment Notes Other Assessment and Plan: Suspected Sleep ApneaPatient [...] communicating with other health home health care coordinator, documenting clinical information in the electronic or [...] were discussed and all questions were answered. Pending Test Test Name Order Date Home sleep study 05/28/2024 Next Appt Details Follow Up: 2 Months, Reason: sleep study/ct adrenal if normal Progress Notes * Judy VAUGHNDOB:1980 (43 yo F)Acc No.[id number]:05/28/2024 Progress Notes Patient: Judy OROURKE Provider: Shelia Chavez MD :1980 A ge:43 Y S ex:Female Date:05/28/2024 Address:[address] [place], [place] [id number] Subjective: * Chief Complaints: * 1 . lab f/u kristin// TEXT. * HPI: H ypothyroidism: 43 yo female calls in to initiate telehealth visit to discuss progress and management of autoimmune thyroiditis, depression and new finding of hypercortisolism in setting of mild impaired fasting glucose. Verbal consent provided by patient to proceed with this visit. This visit was performed in office via provider and patient located in primary care office with real time audio with video. At last visit in Mar we continued zoloft and thyroid support. We discussed DST. C ompleted and positive with cortisol of 3.8 ug/dL. H owever there is concern of untreated sleep apnea- per she snores and does stop breathing at night and has never had a sleep study. Judy presented with concerns of high cortisol levels, insomnia, anxiety, and significant weight gain. She recently experienced serotonin syndrome after restarting sertraline and has discontinued its use. Symptoms suggest possible sleep apnea, and a sleep study has been recommended. Elevated cortisol may be secondary to sleep apnea. Thyroid function is low normal, and cholesterol levels are borderline elevated. She has started testosterone therapy and inquired about possible Barbara-Rolle virus infection. Further testing and follow-up are planned. Patient reports recent episode of serotonin syndrome after restarting sertraline one week ago. Last dose was on Friday, with symptoms of dizziness and feeling off on Friday. Patient states they will not take sertraline again. Patient presents with concerns of high cortisol levels. Reports symptoms including insomnia, anxiety, and feeling unrested. Has gained 30 pounds in the past 2 years, with 15 pounds gained since October. Current weight is 180 lbs, with preferred weight of 150 lbs. Denies high blood pressure, new headaches, or infections. Patient experienced daily panic attacks for 7 weeks last year. Currently taking 25 mg of sertraline and alprazolam as needed. Patient reports low energy and lack of motivation as primary frustrations. Started testosterone enanthate intramuscular injections after recent blood work. notes patient has been snoring every night. Patient confirms waking up feeling unrested. Patient inquires about possible Barbara-Rolle virus infection, as mentioned by another physician. Reports having a brain scan in the fall, which showed normal pituitary gland. 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, unconfirmed) Current and Past Medications and Supplements - Sertraline (Zoloft) 25mg (discontinued) - Xanax as needed - Testosterone enanthate 0.1 intramuscular injection once a week Social History - Marital status: - Living situation: Lives with - Weight: Current weight 180 lbs, preferred weight 150 lbs - Substance use: No tobacco, alcohol, or recreational drug use mentioned - Stress: History of panic attacks (daily for 7 weeks last year) Review of Systems - General: Feels dizzy, off, tired, low energy, no motivation - Cardiovascular: No high blood pressure - Neurological: No new headaches - Respiratory: Feels short of breath - Sleep: Snoring, wakes up unrested - Endocrine: Weight gain - Psychiatric: Anxiety, had panic attacks in the past. * ROS: D ERMATOLOGY: no r stanislav. n o c hange in color of moles. n o?lumps. n o d ry or sensitive skin. n o h naomi. n o o roz skin. n o?acne. n o m oles-irregular. n o m oles-change/new. n o b oils. n o dandruff. n o e xcessive body odor. n o p soriasis. n o f ungal infections. n o n ail problems. n o r edness/inflammation. n o a thlete's foot. n o s kin cancer. n o e czema. E NDOCRINOLOGY: no f atigue. n o e xcessive sweating. n o e xcessive thirst. n o e xcessive urination. n o w eight loss. n o s leep disturbance. n o c old intolerance. n o h eat intolerence. n o t hyroid disease. n o i ncreased loss of hair. n o h x of borderline diabetes. n o d iabetes. n o a bdormal body hair. n o r heumatism. n o c hanges in skin texture.? N EUROLOGY: no h eadache. n o t ingling numbness. n o s eizures. n o i nsomnia. n o m cornell loss. n o d izziness. n o g ait abnormality. n o c hange in sensation anywhere on body. n o l ocalized weakness or numbness. n o b lackouts or near blackouts. n o m igraine. n o t remors.?no f ainting spells. n o h ead injury. n o s troke. O PTHALMOLOGY: no d iminished vision. n o e ye irritation. n o?drainage from eyes. n o b lurring of vision. n o s easonal eye sx. n o?dander related eye sx. n o l oss of vision. n o c ataracts. n o g lasses/contacts. n o g laucoma. n o d etached retina. n o m acular degeneration.?no e ye redness. R ESPIRATORY: no s hortness of breath. n o c hest pain. n o?wheezing. n o a sthma. n o b reathlessness when lying flat. n o p rolonged cough. n o f requent infections (bronchitis). n o e mphysema. n o c hest congestion. n o s leep apnea. A LLERGY: no r unny nose. n o s cratchy throat. n o i tchy eyes. n o e ar fullness. n o s inus congestion. n o s tuffy nose. n o w atery eyes. n o s easonal allergies. n o h ay fever. n o a llergy.?no p olyps. n o s neezing. H EMATOLOGY/LYMPH: no s wollen glands. n o f atigue. n o l oss of appetite. n o e asy bruising. n o e asy bleeding. n o a nemia. ? U ROLOGY: no d ifficulty urinating. n o b lood in urine. n o u rinary urgency. n o f requent urination. n o u rinary incontinence. n o v oiding dysfunction. n o v ulvodynia. n o d ysparaunia. n o r ecurrent UTI. n o w eak flow. n o d ribbling after urination. n o f requent bladder infections. n o k idney stone. n o k idney disease. n o u rine hesitancy.?no p ainful urination. N UTRITION: greater than body requirmemts y es. L ess than body requirements y es. a ppropriate / adequate y es, y es. C ONSTITUTIONAL: no w eight gain. n o l oss of appetite. n o?fever. n o w eakness. n o w eight loss. n o n ight sweats. n o n ausea. n o v isual changes. n o c hange in sleep patterns. h +p reviewed y es, R OS form reviewed with patient see scan for detail. n o c hange in activity capacity.? E NT: no c old. n o c ough. n o c oughing blood.?no n ose bleed. n o h earing loss. n o c hange in voice. n o s ore throat. n o r inging in ears. n o s noring. n o e ar pain. n o r unny nose. n o w atery eyes. n o s inus infection. n o e ar infection. n o facial pain. n o h oarseness. n o g oiter. n o g um problems. n o?postnasal drip. n o f requent nosebleeds. C ARDIOLOGY: no c hest pain. n o p alpitations. n o l eg swelling. n o d izziness. n o s hortness of breath. n o v aricose veins.?no l eg cramps. n o c old hands or feet. n o h igh blood pressure. n o ankle swelling. n o c ardiac catheterization. n o h eart attacks. n o a ngina. n o m urmurs. n o l ow blood pressure. n o l eg pain that resolves w/rest. n o p urple fingers or lips. n o i rregular heart rate. n o c ongenital heart defects. n o d izziness when standing up quickly. n o a wakening at night short of breath. G ASTROENTEROLOGY: no n ausea. n o h eartburn. n o s tool incontinence. n o r eflux. n o a bdominal pain. n o i ndigestion. n o h emorrhoids. n o h iatal hernia. n o u lcers. n o a nal fissures. n o?hepatitis. n o g allstones. n o r ed blood after bowel movements. n o v omiting. n o b loating/belching. n o d ifficulty swallowing. n o d iarrhea.?no c onstipation. n o c hange in bowel habits. n o b lood in stool. ? M USCULOSKELETAL: no j oint swelling. n o j oint pain. n o l eg cramps. n o j oint stiffness. n o a rthritis. n o b ack pain. n o?muscle aches. n o m orning stiffness. n o t endinitis. n o n mark pain. no b ursitis. n o b one marrow biopsy. n o g out. a ctivity intolerance?weakness. n o f racture. P SYCHOLOGY: no h igh stress level. n o d epression. n o?sleep disturbances. n o r héctor sx worse with stress. n o s uicidal ideation. n o e ating disorder. n o m ental or physical abuse. n o a nxiety. n o h eadaches. d isease state y es. F EMALE REPRODUCTIVE: no h eavy periods. n o d ysparaunia. n o s exually active. n o p remenstrual syndrome. n o d ysmenorrhea. n o i nfertility. n o f requent yeast infections. n o v aginal itching. n o i ntermenstrual bleeding. n o p ost coital bleeding. n o p ostmenopausal bleeding. n o p elvic pain. n o m enstral cycle. n o v aginal discharge. n o v aginal dryness. n o o varian cysts. n o f ibroids. n o d ischarge from breast. n o abn. bleeding between cycles. n o p ostmenopausal symptoms. n o l oss of sexual interest. n o p ainful sexual intercourse. n o e ndometriosis. n o v aginal warts. n o a bnormal pap. n o i rregular periods. n o a bnormal vaginal discharge. n o h ot flashes. * Medical History: * Medications: T aking ALPRAZolam 0.25 MG Tablet 1 tab(s) orally three times a day , Taking Testosterone Enanthate 200 MG/ML Solution inject 0.1ml subcutaneously every week , Taking Depo-Testosterone(Testosterone Cypionate) 100 MG/ML Solution inject 0.1ml intramuscularly weekly , Taking BD Syringe/Needle(Syringe/Needle (Disp)) 23G X 1 3 ML Miscellaneous inject testosterone IM weekly , Taking Sertraline HCl 25 MG Tablet 1 tablet Orally Once a day Objective: * Vitals: R R:12, HR:72, BP:124/82, Ht: 68, Wt:180, BMI: 27.37. * P ast Orders: L ab:CORTISOL, FREE, 24 HOUR URINE (Order Date - 05/20/2024) (Collection Date & Time - 05/20/2024 02:01 PM) Value Reference Range TOTAL VOLUME 2000 - mL CORTISOL, FREE, URINE 29.6 4.0-50.0 - mcg/24 h CORTISOL, FREE, URINE 18.3 - mcg/g creat CREATININE, URINE 1.62 0.50-2.15 - g/24 h L ab:CORTISOL, LC/MS, SALIVA, 2 SAMPLES (Order Date - 05/20/2024) (Collection Date & Time - 05/20/2024 02:01 PM) Value Reference Range DRAW DATE 1 05/19/2024 - DRAW TIME 1 0000 - CORTISOL, SALIVA SAMPLE 1 0.14 - mcg/dL DRAW DATE 2 05/20/2024 - DRAW TIME 2 0000 - CORTISOL, SALIVA SAMPLE 2 0.05 - mcg/dL L ab:CORTISOL, TOTAL (Order Date - 04/19/2024) (Collection Date & Time - 04/19/2024 07:19 AM) Value Reference Range CORTISOL, TOTAL 3.8 - mcg/dL L ab:DEXAMETHASONE (Order Date 04/19/2024) (Collection Date & Time - 04/19/2024 07:19 AM) Value Reference Range DEXAMETHASONE 202 - ng/dL L ab:ACTH, PLASMA (Order Date 04/27/2024) (Collection Date & Time - 04/27/2024 06:14 AM) Value Reference Range ACTH, PLASMA 16 6-50 - pg/mL L ab:DHEA SULFATE (Order Date - 04/27/2024) (Collection Date & Time - 04/27/2024 06:14 AM) Value Reference Range DHEA SULFATE 96 15-205 - mcg/dL L ab:CYCLIC CITRULLINATED PEPTIDE (CCP) AB (IGG) (Order Date - 04/27/2024) (Collection Date & Time - 04/27/2024 06:14 AM) Value Reference Range CYCLIC CITRULLINATED <16 - UNITS L ab:FERRITIN (Order Date 04/27/2024) (Collection Date & Time - 04/27/2024 06:14 AM) Value Reference Range FERRITIN 31 16-232 - ng/mL L ab:TSH (Order Date 04/27/2024) (Collection Date & Time - 04/27/2024 06:14 AM) Value Reference Range TSH 2.10 - mIU/L L ab:T4, FREE (Order Date 04/27/2024) (Collection Date & Time - 04/27/2024 06:14 AM) Value Reference Range T4, FREE 1.0 0.8-1.8 - ng/dL L ab:T3, FREE (Order Date 04/27/2024) (Collection Date & Time - 04/27/2024 06:14 AM) Value Reference Range T3, FREE 3.0 2.3-4.2 - pg/mL L ab:INSULIN (Order Date 04/27/2024) (Collection Date & Time - 04/27/2024 06:14 AM) Value Reference Range INSULIN 9.4 - uIU/mL L ab:FSH (Order Date 04/27/2024) (Collection Date & Time - 04/27/2024 06:14 AM) Value Reference Range FSH 7.0 - mIU/mL L ab:TESTOSTERONE, FREE (DIALYSIS) AND TOTAL,MS (Order Date - 04/27/2024) (Collection Date & Time - 04/27/2024 06:14 AM) Value Reference Range TESTOSTERONE, TOTAL, MS 15 2-45 - ng/dL TESTOSTERONE, FREE 1.6 0.1-6.4 - pg/mL L ab:THYROID PEROXIDASE ANTIBODIES (Order Date - 04/27/2024) (Collection Date & Time - 04/27/2024 06:14 AM) Value Reference Range THYROID PEROXIDASE ANTIBODIES <1 <9 - IU/mL L ab:ESTRADIOL (Order Date 04/27/2024) (Collection Date & Time - 04/27/2024 06:14 AM) Value Reference Range ESTRADIOL 45 - pg/mL L ab:RHEUMATOID FACTOR (Order 04/27/2024) (Collection Date & Time - 04/27/2024 06:14 AM) Value Reference Range RHEUMATOID FACTOR <10 <14 - IU/mL L ab:PROGESTERONE (Order 04/27/2024) (Collection Date & Time - 04/27/2024 06:14 AM) Value Reference Range PROGESTERONE <0.5 - ng/mL L ab:MAGNESIUM (Order 04/27/2024) (Collection Date & Time - 04/27/2024 06:14 AM) Value Reference Range MAGNESIUM 2.3 1.5-2.5 - mg/dL L ab:LH (Order Date 04/27/2024) (Collection Date & Time - 04/27/2024 06:14 AM) Value Reference Range LH 5.2 - mIU/mL L ab:C-REACTIVE PROTEIN (Order 04/27/2024) (Collection Date & Time - 04/27/2024 06:14 AM) Value Reference Range C-REACTIVE PROTEIN <3.0 <8.0 - mg/L L ab:MAGUI IFA SCREEN W/REFL TO TITER AND PATTERN, IFA (Order Date 04/27/2024) (Collection Date & Time - 04/27/2024 06:14 AM) Value Reference Range MAGUI SCREEN, IFA NEGATIVE NEGATIVE - L ab:IRON AND TOTAL IRON BINDING CAPACITY (Order 04/27/2024) (Collection Date & Time - 04/27/2024 06:14 AM) Value Reference Range IRON, TOTAL 56 40-190 - mcg/dL IRON BINDING CAPACITY 326 250-450 - mcg/dL ( calc) % SATURATION 17 16-45 - % (calc) L ab:HEMOGLOBIN A1c (Order Date - 04/27/2024) (Collection Date & Time - 04/27/2024 06:14 AM) Value Reference Range HEMOGLOBIN A1c 5.1 <5.7 - % of total Hg b L ab:COMPREHENSIVE METABOLIC PANEL (Order Date - 04/27/2024) (Collection Date & Time - 04/27/2024 06:14 AM) Value Reference Range GLUCOSE 101 H 65-99 - mg/dL UREA NITROGEN (BUN) 18 7-25 - mg/dL CREATININE 0.61 0.50-0.99 - mg/dL BUN/CREATININE RATIO SEE NOTE: 10-17 - (calc) SODIUM 140 135-146 - mmol/L POTASSIUM 4.9 3.5-5.3 - mmol/L CHLORIDE 106 98-110 - mmol/L CARBON DIOXIDE 29 20-32 - mmol/L CALCIUM 8.7 8.6-10.2 - mg/dL PROTEIN, TOTAL 6.8 6.1-8.1 - g/dL ALBUMIN 4.2 3.6-5.1 - g/dL GLOBULIN 2.6 1.9-3.7 - g/dL (calc ) ALBUMIN/GLOBULIN RATIO 1.6 1.0-2.5 - (calc) BILIRUBIN, TOTAL 0.3 0.2-1.2 - mg/dL ALKALINE PHOSPHATASE 79 31-125 - U/L AST 27 10-30 - U/L ALT 24 6-29 - U/L EGFR 113 > OR = 60 - mL/min/1 .73m2 L ab:CBC (INCLUDES DIFF/PLT) (Order Date - 04/27/2024) (Collection Date & Time - 04/27/2024 06:14 AM) Value Reference Range WHITE BLOOD CELL COUNT 4.7 3.8-10.8 - Thous[place] nd/uL RED BLOOD CELL COUNT 4.59 3.80-5.10 - Million /uL HEMOGLOBIN 13.6 11.7-15.5 - g/dL HEMATOCRIT 42.4 35.0-45.0 - % MCV 92.4 80.0-100.0 - fL MCH 29.6 27.0-33.0 - pg MCHC 32.1 32.0-36.0 - g/dL RDW 12.2 11.0-15.0 - % PLATELET COUNT 221 140-400 - Thousand/u L NEUTROPHILS 58.6 - % ABSOLUTE NEUTROPHILS 2754 6156-5736 - cells/u L LYMPHOCYTES 28.5 - % ABSOLUTE LYMPHOCYTES 0105 756-9836 - cells/uL MONOCYTES 7.1 - % ABSOLUTE MONOCYTES 334 200-950 - cells/uL EOSINOPHILS 4.5 - % ABSOLUTE EOSINOPHILS 212 15-500 - cells/uL BASOPHILS 1.3 - % ABSOLUTE BASOPHILS 61 0-200 - cells/uL MPV 11.3 7.5-12.5 - fL L ab:VITAMIN B12/FOLATE, SERUM PANEL (Order Date - 04/27/2024) (Collection Date & Time - 04/27/2024 06:14 AM) Value Reference Range FOLATE, SERUM 21.5 - ng/mL VITAMIN B12 134 897-5976 - pg/mL L ab:VITAMIN D, 25-HYDROXY, LC/MS/MS (Order Date - 04/27/2024) (Collection Date & Time - 04/27/2024 06:14 AM) Value Reference Range VITAMIN D, 25-OH, TOTAL 38 30-100 - ng/mL L ab:SED RATE BY MODIFIED WESTERGREN (Order Date - 04/27/2024) (Collection Date & Time - 04/27/2024 06:14 AM) Value Reference Range SED RATE BY MODIFIED 6 < OR = 20 - mm/h L ab:LIPID PANEL (REFL) (Order Date - 04/27/2024) (Collection Date & Time - 04/27/2024 06:14 AM) Value Reference Range CHOLESTEROL, TOTAL 253 H <200 - mg/dL HDL CHOLESTEROL 66 > OR = 50 - mg/dL TRIGLYCERIDES 112 <150 - mg/dL LDL-CHOLESTEROL 164 H - mg/dL (calc) CHOL/HDLC RATIO 3.8 <5.0 - (calc) NON HDL CHOLESTEROL 187 H <130 - mg/dL (calc) * Examination: G eneral Examination: General n ormal, NAD, well nourished and hydrated, pleasant. Neck, thyroid : s upple. Assessment: * Assessment: 1. O ther fatigue - R53.83 (Primary) 2 . O bstructive sleep apnea (adult) (pediatric) - G47.33 3 . A utoimmune thyroiditis - E06.3 4 . A bnormal weight gain - R63.5 5 . I mpaired fasting glucose - R73.01 6. O besity, unspecified - E66.9 7 . D ietary counseling and surveillance - Z71.3 Plan: * Treatment: 2. O thers Notes:Assessment and Plan: Suspected Sleep ApneaPatient reports feeling [...] communicating with other health home health care coordinator, documenting clinical information in the electronic or [...] were discussed and all questions were answered. ? * Follow Up: 2 Months (Reason: sleep study/ct adrenal if normal) * Billing Information: * Visit Code: 46022 Office Visit, Est Pt., Level 4. Modifiers: 95 * Procedure Codes: * FIXER APPRENTICE Sign off status: Completed true * Provider: Shelia Chavez MD Date: 05/28/2024 Generated for Fouzia corrales/Brenda/eTroycesmitting on: 08/18/2024 10:27 AM CDT History and Physical Notes * HPI (History of Present Illness) Category Sub-Category Detail Notes Category Not es Hypothyroidism 43 yo female calls in to initiate telehealth visit to discuss progress and management of autoimmune thyroiditis, depression and new finding of hypercortisolism in setting of mild impaired fasting glucose. Verbal consent provided by patient to proceed with this visit. This visit was performed in office via provider and patient located in primary care office with real time audio with video. At last visit in Mar we continued zoloft and thyroid support. We discussed DST. Completed and positive with cortisol of 3.8 ug/dL. However there is concern of untreated sleep apnea- per she snores and does stop breathing at night and has never had a sleep study. Judy presented with concerns of high cortisol levels, insomnia, anxiety, and significant weight gain. She recently experienced serotonin syndrome after restarting sertraline and has discontinued its use. Symptoms suggest possible sleep apnea, and a sleep study has been recommended. Elevated cortisol may be secondary to sleep apnea. Thyroid function is low normal, and cholesterol levels are borderline elevated. She has started testosterone therapy and inquired about possible Barbara-Rolle virus infection. Further testing and follow-up are planned. Patient reports recent episode of serotonin syndrome after restarting sertraline one week ago. Last dose was on Friday, with symptoms of dizziness and feeling off on Friday. Patient states they will not take sertraline again. Patient presents with concerns of high cortisol levels. Reports symptoms including insomnia, anxiety, and feeling unrested. Has gained 30 pounds in the past 2 years, with 15 pounds gained since October. Current weight is 180 lbs, with preferred weight of 150 lbs. Denies high blood pressure, new headaches, or infections. Patient experienced daily panic attacks for 7 weeks last year. Currently taking 25 mg of sertraline and alprazolam as needed. Patient reports low energy and lack of motivation as primary frustrations. Started testosterone enanthate intramuscular injections after recent blood work. notes patient has been snoring every night. Patient confirms waking up feeling unrested. Patient inquires about possible Barbara-Rolle virus infection, as mentioned by another physician. Reports having a brain scan in the fall, which showed normal pituitary gland. 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, unconfirmed) Current and Past Medications and Supplements - Sertraline (Zoloft) 25mg (discontinued) - Xanax as needed - Testosterone enanthate 0.1 intramuscular injection once a week Social History - Marital status: - Living situation: Lives with - Weight: Current weight 180 lbs, preferred weight 150 lbs - Substance use: No tobacco, alcohol, or recreational drug use mentioned - Stress: History of panic attacks (daily for 7 weeks last year) Review of Systems - General: Feels dizzy, off, tired, low energy, no motivation - Cardiovascular: No high blood pressure - Neurological: No new headaches - Respiratory: Feels short of breath - Sleep: Snoring, wakes up unrested - Endocrine: Weight gain - Psychiatric: Anxiety, had panic attacks in the past Examination Category Sub-Category Detail Notes Category Not es General Examination Neck, thyroid : supple General normal, NAD, well no urished and hydrated, pleasant
--- OUTSIDE RECORDS SUMMARY | 2024-08-18 10:27 | XMS_ITS | Encounter Summary ---
Author Organization [facility] Address [address] [place] [address] Care Team Providers Care Records Management Clerk Name Role Phone Adis Mcdermott MD Primary Care Provider [phone] Encounter Details Date Type Department Care Team (Late st Contact Info) Description 04/24/2007 Outpatient Historical [facility] Internal Medicine [address] [address] Adis Mcdermott MD [address] [place] [id number] Social History Tobacco Use Types Packs/Day Years Used Date Smoking Tobacco: Never Assessed Comments Unknown Sex and Gender Information Value Date Recorded Sex Assigned at Not on file Legal Sex Female 4:17 AM [employer] Gender Identity Not on file Sexual Orientation Not on file documented as of this encounter Plan of Treatment Not on file documented as of this encounter Visit Diagnoses Not on filedocumented in this encounter Care Teams Records Management Clerk Relationship Specialty Start Date End Date Adis Mcdermott MD PCP - General Internal Medicine 07/08/14 documented as of this encounter
--- OUTSIDE RECORDS SUMMARY | 2024-08-18 10:27 | XMS_ITS | Encounter Summary ---
Author Organization [facility] Address [address] [place] [address] Care Team Providers Care Case Preparer And Liner Name Role Phone Adis Mcdermott MD Primary Care Provider [phone] Encounter Details Date Type Department Care Team (Late st Contact Info) Description 12/14/[address] 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
--- OUTSIDE RECORDS SUMMARY | 2024-08-18 10:27 | XMS_ITS | Encounter Summary ---
Author Organization [facility] Address [address] [place] [address] Care Team Providers Care Trolley Collector Name Role Phone Adis Mcdermott MD Primary Care Provider [phone] Encounter Details Date Type Department Care Team (Late st Contact Info) Description 09/24/2000 Outpatient Historical [facility] Internal Medicine [address] [address] Shaheen Stokes MD [address] [place] [phone] Social History Tobacco Use Types Packs/Day Years Used Date Smoking Tobacco: Never Assessed Comments Unknown Sex and Gender Information Value Date Recorded Sex Assigned at Not on file Legal Sex Female 4:17 AM INSTRUCTOR MODELING Gender Identity Not on file Sexual Orientation Not on file documented as of this encounter Plan of Treatment Not on file documented as of this encounter Visit Diagnoses Not on filedocumented in this encounter Care Teams Trolley Collector Relationship Specialty Start Date End Date Adis Mcdermott MD PCP - General Internal Medicine 07/08/14 documented as of this encounter
--- OUTSIDE RECORDS SUMMARY | 2024-08-18 10:27 | XMS_ITS | Encounter Summary ---
Author Organization [facility] Address [address] [place] [address] Care Team Providers Care Small Arms Repairer Name Role Phone Adis Mcdermott MD Primary Care Provider [phone] Encounter Details Date Type Department Care Team (Late st Contact Info) Description 10/27/2000 Outpatient Historical [facility] Internal Medicine [address] [address] Shaheen Stokes MD [address] [place] [phone] Social History Tobacco Use Types Packs/Day Years Used Date Smoking Tobacco: Never Assessed Comments Unknown Sex and Gender Information Value Date Recorded Sex Assigned at Not on file Legal Sex Female 4:17 AM CONSTRUCTION JOB COST ESTIMATOR Gender Identity Not on file Sexual Orientation Not on file documented as of this encounter Plan of Treatment Not on file documented as of this encounter Visit Diagnoses Not on filedocumented in this encounter Care Teams Small Arms Repairer Relationship Specialty Start Date End Date Adis Mcdermott MD PCP - General Internal Medicine 07/08/14 documented as of this encounter
--- OUTSIDE RECORDS SUMMARY | 2024-08-18 10:27 | XMS_ITS | Encounter Summary ---
Author Organization [facility] Address [address] [place] [address] Care Team Providers Care Berry Picker Machine Operator Name Role Phone Adis Mcdermott MD Primary Care Provider [phone] Encounter Details Date Type Department Care Team (Late st Contact Info) Description 05/04/2002 Outpatient Historical [facility] Internal Medicine [address] [address] Shaheen Stokes MD [address] [place] [phone] Social History Tobacco Use Types Packs/Day Years Used Date Smoking Tobacco: Never Assessed Comments Unknown Sex and Gender Information Value Date Recorded Sex Assigned at Not on file Legal Sex Female 4:17 AM LOG FEEDER Gender Identity Not on file Sexual Orientation Not on file documented as of this encounter Plan of Treatment Not on file documented as of this encounter Visit Diagnoses Not on filedocumented in this encounter Care Teams Berry Picker Machine Operator Relationship Specialty Start Date End Date Adis Mcdermott MD PCP - General Internal Medicine 07/08/14 documented as of this encounter
--- OUTSIDE RECORDS SUMMARY | 2024-08-18 10:27 | XMS_ITS | Encounter Summary ---
Author Organization [facility] Address [address] [place] [address] Care Team Providers Care Front End Assistant Name Role Phone Adis Mcdermott MD Primary Care Provider [phone] Encounter Details Date Type Department Care Team (Late st Contact Info) Description 07/08/2000 Outpatient Historical [facility] Internal Medicine [address] [address] Shaheen Stokes MD [address] [place] [phone] Social History Tobacco Use Types Packs/Day Years Used Date Smoking Tobacco: Never Assessed Comments Unknown Sex and Gender Information Value Date Recorded Sex Assigned at Not on file Legal Sex Female 4:17 AM AMBULATORY SERVICE REPRESENTATIVE Gender Identity Not on file Sexual Orientation Not on file documented as of this encounter Plan of Treatment Not on file documented as of this encounter Visit Diagnoses Not on filedocumented in this encounter Care Teams Front End Assistant Relationship Specialty Start Date End Date Adis Mcdermott MD PCP - General Internal Medicine 07/08/14 documented as of this encounter
--- OUTSIDE RECORDS SUMMARY | 2024-08-18 10:27 | XMS_ITS | Encounter Summary ---
Author Organization [facility] Address [address] [place] [address] Care Team Providers Care Dietetics Teacher Name Role Phone Adis Mcdermott MD Primary Care Provider Reason for Visit * Reason Onset Date Comments heart fluttering 12/11/2021 Encounter Details Date Type Department Care Team (Late st Contact Info) Description 12/11/2021 Telephone [facility] Primary Care [address] [place] [address] Adis Mcdermott MD [address] [facility] [address] [place] [address] heart fluttering Social History Tobacco Use Types Packs/Day Years Used Date Smoking Tobacco: Never Smokeless Tobacco: Never Alcohol Use Standard Drinks/Week Comments No 0 (1 standard drink = 0.6 oz pur e alcohol) Comments No Sex and Gender Information Value Date Recorded Sex Assigned at Not on file Legal Sex Female 4:17 AM COMMERCIAL OR INSTITUTIONAL CLEANER Gender Identity Not on file Sexual Orientation Not on file Occupation Industry Job Start Date Job End Date Not on file Not on file Not on file Not on file COVID-19 Exposure Response Date Recorded In the last 10 days, have yo u been in contact with someone who was confirmed or suspected to have Coronavirus/COVID-19? No / Unsure 12/12/2021 1:32 PM CDT documented as of this encounter Miscellaneous Notes * Telephone Encounter - RamírezLisa - 12/11/2021 9:36 AM CDT Caller: Judy VAUGHN Reason for Triage: heart fluttering Symptoms: Ongoing heart fluttering symptoms (pt stated no chest pain or other symptoms . Duration: 3 days Patient call back number: [phone] (home) [phone] (work) documented in this encounter Plan of Treatment Not on file documented as of this encounter Visit Diagnoses Not on filedocumented in this encounter Care Teams Dietetics Teacher Relationship Specialty Start Date End Date Adis Mcdermott MD PCP - General Internal Medicine 07/08/14 documented as of this encounter
--- OUTSIDE RECORDS SUMMARY | 2024-08-18 10:27 | XMS_ITS | Encounter Summary ---
Author Organization [facility] Address [address] [place] [address] Care Team Providers Care Collet Driller Name Role Phone Adis Mcdermott MD Primary Care Provider [phone] Encounter Details Date Type Department Care Team (Late st Contact Info) Description 10/27/2000 Outpatient Historical [facility] Internal Medicine [address] [address] Shaheen Stokes MD [address] [place] [phone] Social History Tobacco Use Types Packs/Day Years Used Date Smoking Tobacco: Never Assessed Comments Unknown Sex and Gender Information Value Date Recorded Sex Assigned at Not on file Legal Sex Female 4:17 AM PALEONTOLOGICAL HELPER Gender Identity Not on file Sexual Orientation Not on file documented as of this encounter Plan of Treatment Not on file documented as of this encounter Visit Diagnoses Not on filedocumented in this encounter Care Teams Collet Driller Relationship Specialty Start Date End Date Adis Mcdermott MD PCP - General Internal Medicine 07/08/14 documented as of this encounter
--- OUTSIDE RECORDS SUMMARY | 2024-08-18 10:27 | XMS_ITS | Clinical Summary ---
Author Organization [facility] Address [address] [place] [address] Care Team Providers Care Graduate Assistant Name Role Phone Debbie Sharma MD Unavailable [phone] Adis Mcdermott MD Primary Care Provider [phone] Source Comments [facility],non-owned Affiliates and Associated Physician Practices is amultiple site organization consisting of ambulatory clinics and hospital sitesin [place], [place]. This disclosure is being madepursuant to the Care Everywhere program and may not contain all information available regarding this patient. Last updated 18.[facility] Allergies Active Allergy Reactions Criticality Noted Date Comments Amoxicillin-Pot Clavulanate Rash Medium 04/30/19 18 Medications * Be aware that medications may not be up to date on this document. Alwaysverify current medications with the patient. Other Generic vitamin with DHA, patient to take one tab and capsule daily, dispense #30+30 60 Each 12 3 Active Additional Information Patient not taking.Reported on 07/31/2017 levothyroxine (SYNTHROID) 50 MCG tablet 4 Active metoclopramide (REGLAN) 10 MG tablet Take 1 Tab by mouth 4 times daily - before meals & nightly. 40 Tab PRN 4 Active Additional Information Patient not taking.Reported on 09/18/2017 ondansetron, disintegrating, (ZOFRAN ODT) 8 MG tablet Take 1 Tab by mouth every 6 hours as needed for Nausea/Vomiting . Allow tablet to dissolve on the tongue 30 Tab 3 4 Active Additional Information Patient not taking.Reported on 07/31/2017 ranitidine (ZANTAC) 150 MG tablet Take 150 mg by mouth 2 times daily. Active fexofenadine (ELTON) 180 MG tablet Take 180 mg by mouth once daily. Active Probiotic Product (PROBIOTIC & ACIDOPHILUS EX ST PO) Take by mouth. Activ e psyllium (METAMUCIL) 58.6 % powder Take 1 Packet by mouth 3 times daily as needed for Constipation. Active betamethasone dipropionate (DIPROSONE) 0.05 % creamIndications :eczema Apply to affected area 2 times daily. Indications: eczema Active sertraline (ZOLOFT) 25 MG tablet take 1 tablet by oral route every day Active sertraline (ZOLOFT) 50 MG tablet TK 1 T PO D 2 8 Active sertraline (ZOLOFT) 50 MG tablet TAKE 1 TABLET BY MOUTH DAILY 8 Active levothyroxine (SYNTHROID) 25 MCG tablet TK 1.5 TS PO QAM 0 8 Active azithromycin (ZITHROMAX) 250 MG tablet 0 8 Active amoxicillin-clav ulanate (AUGMENTIN) 875-125 MG tablet TK 1 T PO Q 12 HOURS FOR 10 DAYS. 0 7 Active Multiple Vitamin (MULTIVITAMINS PO) Take 1 tablet by mouth once daily Active neomycin (MYCIFRADIN) 500 MG tablet TK 1 T PO BID FOR 10 DAYS. 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 Patient reports Drs uncertain if uterine, colon, or bladder. 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 Gender Identity Not on file Sexual Orientation Not on file Last Filed Vital Signs Vital Sign Reading Time Taken Comments Blood Pressure 114/72 09/18/2017 3:46 PM CDT Pulse 67 12/21/2013 9:03 AM CDT Temperature 37.1 C (98.8 F) 12/03/2013 1:52 PM CDT Respiratory Rate 18 12/21/2013 9:03 AM CDT Oxygen Saturation - - Inhaled Oxygen Concentration - - Weight 68 kg (150 lb) 10/20/2017 8:56 AM CDT Height 172.7 cm (5' 8 ) 10/20/2017 8:56 AM CDT Body Mass Index 22.81 10/20/2017 8:56 AM CDT Plan of Treatment Health Maintenance Due Date Last Done Comments LIPID TESTING 1980 HEPATITIS C SCREENING 11/23/1997 DTAP/TDAP/TD VACCINES (1 - Tdap) 11/27/1998 HEPATITIS B VACCINE (1 of 3 - 19+ 3-dose series) 11/27/1998 PAP with HPV 02/04/2018 02/04/2013 COVID-19 VACCINE ( - 2023- season) 2023 DEPRESSION SCREENING 04/28/2024 INFLUENZA VACCINE (Season Ended) 2024 02/15/2019, 03/30/2018, 01/26/2018, Additional history exists MAMMOGRAM 04/30/2025 04/30/2023, 06/2023, 01/23/2022 ZOSTER VACCINE (1 of 2) 11/27/2029 HIV SCREENING Completed 11/02/2013 HIB VACCINE Aged Out No longer eligi ble based on patient's age to complete this topic HPV VACCINE Aged Out No longer eligi ble based on patient's age to complete this topic MENINGOCOCCAL (Group B) VACCINE SHARED DECISION-MAKING Aged Out No longer eligible based on patient's age to complete this topic MENINGOCOCCAL GROUPS A/C/Y/W VACCINE Aged Out No longer eligible based on patient's age to complete this topic PNEUMOCOCCAL VACCINE Aged Out No long er eligible based on patient's age to complete this topic Procedures Procedure Name Priority Date/Time Associated Diagnosis Comments HIV-1 HIV-2 ANTIBODY Routine 11/02/2013 3:07 PM CDT Positive test PAP IG LB CT+NG JUAN+MITCH HPV 16,18 Routine 02/04/2013 9:29 AM CDT Routine gynecological examination from Last 3 Months or Most Recently Relevant to Health Maintenance Results * HIV-1 HIV-2 ANTIBODY (11/02/2013 3:07 PM CDT) HIV-1 Antibody O.D. Ratio <1.00 <1.00 [facility] INSURANCE BILL Comment:Index Value: Specime n reactivity relative to the negative cutoff. HIV-1/HIV-2 Non Reactive Non Reactive [facility] INSURANCE BILL Blood specimen (specimen) BLOOD SPECIMEN / Unknown 11/02/2013 3:07 PM CDT 11/02/2013 6:50 PM CDT Narrative Resulting Agency Comment [facility] [address] [facility] [id number] Joslyn Garay SUPERINTENDENT DISTRIBUTION-GLUING MACHINE OPERATOR AUTOMATIC LAB - CHEMISTRY ORDERABLE S Final Result [facility] INSURANCE BILL [address] [place] [address] * PAP IG CT+NG JUAN+MITCH HPV 16/18 (PO REF) (02/04/2013 9:29 AM CDT) Diagnosis [facility] ACCOUNT BILL Comment:NEGATIVE FOR INTRAEP ITHELIAL LESION AND MALIGNANCY. Specimen Adequacy [facility] ACCOUNT BILL Comment: Satisfactory for evaluation. Endocervical and/or squamous metaplastic cells (endocervical component) are present. Clinician Provided ICD9 [facility] ACCOUNT BILL Comment: V72.31 ; Routine gynecological examination 300.4 ; Dysthymic disorder Performed by [facility] ACCOUNT BILL Comment:Ford Payton totechnologist (ASCP) Comment . [facility] ACCOUNT BILL Note [facility] ACCOUNT BILL Comment: The Pap smear is a screening test designed to aid in the detection of premalignant and malignant conditions of the uterine cervix. It is not a diagnostic procedure and should not be used as the sole means of detecting cervical cancer. Both false-positive and false-negative reports do occur. . IGLBP CPT Code Automation [facility] ACCOUNT BILL Comment: This liquid based ThinPrep(R) pap test was screened with the use of an image guided system. Human papillomavirus Other hr types Negative Negative [facility] ACCOUNT BILL Human papillomavirus 16 Negative Negative [facility] ACCOUNT BILL Human papillomavirus 18 Negative Negative [facility] ACCOUNT BILL Comment: This test detects fourteen high-risk HPV types: HPV16, HPV18 and twelve other high-risk types (31, 33, 35, 39, 45, 51, 52, 56, 58, 59, 66, 68) without differentiation. Chlamydia trachomatis JUAN Negative Negative [facility] ACCOUNT BILL GC DNA Probe Negative Negative [facility] ACCOUNT BILL MICROSCOPIC CYTOLOGIC EXAMINATION OF SMEAR OF SPECIMEN FROM FEMALE GENITAL TRACT PREPARED USING PAPANICOLAOU TECHNIQUE / Unknown 02/04/2013 9:29 AM CDT 02/05/2013 2:37 AM CDT Narrative [facility] ACCOUNT BILL - 02/13/2013 3:11 AM CDT No. of containers..01 CYTYC Thin Prep Vial Resulting Agency Comment [facility] [id number] Joslyn Garay SUPERINTENDENT DISTRIBUTION-GLUING MACHINE OPERATOR AUTOMATIC LAB - PATHOLOGY/CYTOLOGY ORDERABLES Final Result [facility] ACCOUNT BILL [address] [place] [address] from Last 3 Months or Most Recently Relevant to Health Maintenance Insurance ANTHEM Advance Directives * Full Code (Latest Code Status on File) Date Activated Date Inactivated Comments 12/03/2013 1:37 PM 12/03/2013 5:27 PM Care Teams Graduate Assistant Relationship Specialty Start [place] [address] [place] [address] PCP - General Internal Medicine 09/26/17 [place] [address] [place] [address] Will Call Clerk Obstetrics and Gynecology 11/16/12
--- OUTSIDE RECORDS SUMMARY | 2024-08-18 10:27 | XMS_ITS | Encounter Summary ---
Author Organization [facility] Address [address] [place] [address] Care Team Providers Care Third Grade Teacher Name Role Phone Adis Mcdermott MD Primary Care Provider Reason for Visit * Reason Onset Date Comments Imaging Results 03/29/2022 Encounter Details Date Type Department Care Team (Late st Contact Info) Description 03/29/2022 Telephone [facility] Primary Care [address] [place] [address] Adis Mcdermott MD [address] [facility] [address] [place] [address] Imaging Results Social History Tobacco Use Types Packs/Day Years Used Date Smoking Tobacco: Never Smokeless Tobacco: Never Alcohol Use Standard Drinks/Week Comments No 0 (1 standard drink = 0.6 oz pur e alcohol) Comments No Sex and Gender Information Value Date Recorded Sex Assigned at Not on file Legal Sex Female 4:17 AM SUGAR COATING HAND Gender Identity Not on file Sexual Orientation Not on file Occupation Industry Job Start Date Job End Date Not on file Not on file Not on file Not on file documented as of this encounter Miscellaneous Notes * Telephone Encounter - Sallie Newell - 04/01/2022 2:31 PM CST Spoke to patient. Patient stated that she got the CXR at [facility]. Found the results in faxes. On RATING SPECIALIST desk to look over. R COATING HAND * Telephone Encounter - Louise Sandra FNP - 04/01/2022 10:05 AM SUGAR COATING HAND Please clarify what pt is requesting and assist as able. Chest xray is already ordered, has not been completed. R COATING HAND * Telephone Encounter - Laney Linares - 03/29/2022 8:48 AM CST Request for Results Caller: Judy Isbell On PHI: Yes Test Name: Chest X-Ray Were results released by Agent? No Does patient request a call-back by clinical staff? Yes Call back number: [phone] Home Phone Work Phone R COATING HAND documented in this encounter Plan of Treatment Not on file documented as of this encounter Visit Diagnoses Not on filedocumented in this encounter Care Teams Third Grade Teacher Relationship Specialty Start Date End Date Adis Mcdermott MD PCP - General Internal Medicine 07/08/14 documented as of this encounter
--- OUTSIDE RECORDS SUMMARY | 2024-08-18 10:27 | XMS_ITS | Encounter Summary ---
Author Organization [facility] Address [address] [place] [address] Care Team Providers Care Multiple Effect Evaporator Operator Name Role Phone Adis Mcdermott MD Primary Care Provider [phone] Encounter Details Date Type Department Care Team (Late st Contact Info) Description 04/24/2007 Outpatient Historical [facility] Internal Medicine [address] [address] Adis Mcdermott MD [address] [place] [phone] Social History Tobacco Use Types Packs/Day Years Used Date Smoking Tobacco: Never Assessed Comments Unknown Sex and Gender Information Value Date Recorded Sex Assigned at Not on file Legal Sex Female 4:17 AM COMPRESSOR OPERATOR ADJUSTER Gender Identity Not on file Sexual Orientation Not on file documented as of this encounter Plan of Treatment Not on file documented as of this encounter Visit Diagnoses Not on filedocumented in this encounter Care Teams Multiple Effect Evaporator Operator Relationship Specialty Start Date End Date Adis Mcdermott MD PCP - General Internal Medicine 07/08/14 documented as of this encounter
--- OUTSIDE RECORDS SUMMARY | 2024-08-18 10:27 | XMS_ITS | Encounter Summary ---
Author Organization [facility] Address [address] [place] [address] Care Team Providers Care Tool Room Attendant Name Role Phone Adis Mcdermott MD Primary Care Provider Encounter Details Date Type Department Care Team (Late st Contact Info) Description 01/15/2000 Outpatient Historical [facility] Internal Medicine [address] [address] Shaheen Stokes MD [address] [place] [phone] Social History Tobacco Use Types Packs/Day Years Used Date Smoking Tobacco: Never Assessed Comments Unknown Sex and Gender Information Value Date Recorded Sex Assigned at Not on file Legal Sex Female 4:17 AM CORE FEEDER Gender Identity Not on file Sexual Orientation Not on file documented as of this encounter Plan of Treatment Not on file documented as of this encounter Visit Diagnoses Not on filedocumented in this encounter Care Teams Tool Room Attendant Relationship Specialty Start Date End Date Adis Mcdermott MD PCP - General Internal Medicine 07/08/14 documented as of this encounter
--- OUTSIDE RECORDS SUMMARY | 2024-08-18 10:27 | XMS_ITS | Encounter Summary ---
Author Organization [facility] Address [address] [place] [address] Care Team Providers Care Floor Associate Name Role Phone Aids Mcdermott MD Primary Care Provider [phone] Encounter Details Date Type Department Care Team (Late st Contact Info) Description 08/03/2001 Outpatient Historical [facility] Internal Medicine [address] [address] Shaheen Stokes MD [address] [place] [phone] Social History Tobacco Use Types Packs/Day Years Used Date Smoking Tobacco: Never Assessed Comments Unknown Sex and Gender Information Value Date Recorded Sex Assigned at Not on file Legal Sex Female 4:17 AM INTERACTIVE MEDIA MARKETING DIRECTOR Gender Identity Not on file Sexual Orientation Not on file documented as of this encounter Plan of Treatment Not on file documented as of this encounter Visit Diagnoses Not on filedocumented in this encounter Care Teams Floor Associate Relationship Specialty Start Date End Date Adis Mcdermott MD PCP - General Internal Medicine 07/08/14 documented as of this encounter
--- OUTSIDE RECORDS SUMMARY | 2024-08-18 10:27 | XMS_ITS | Encounter Summary ---
Author Organization [facility] Address [address] [place] [address] Care Team Providers Care Powder Shoveler Name Role Phone Adis Mcdermott MD Primary Care Provider [phone] Encounter Details Date Type Department Care Team (Late st Contact Info) Description 06/13/2000 Outpatient Historical [facility] Internal Medicine [address] [address] Shaheen Stokes MD [address] [place] [phone] Social History Tobacco Use Types Packs/Day Years Used Date Smoking Tobacco: Never Assessed Comments Unknown Sex and Gender Information Value Date Recorded Sex Assigned at Not on file Legal Sex Female 4:17 AM PASTING INSPECTOR Gender Identity Not on file Sexual Orientation Not on file documented as of this encounter Plan of Treatment Not on file documented as of this encounter Visit Diagnoses Not on filedocumented in this encounter Care Teams Powder Shoveler Relationship Specialty Start Date End Date Adis Mcdermott MD PCP - General Internal Medicine 07/08/14 documented as of this encounter
--- OUTSIDE RECORDS SUMMARY | 2024-08-18 10:28 | XMS_ITS | Encounter Summary ---
Author Organization [employer] Address 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
--- OUTSIDE RECORDS SUMMARY | 2024-08-18 10:28 | XMS_ITS | Encounter Summary ---
Author Organization [facility] Address [address] [place] [address] Care Team Providers Care Dog Walker Name Role Phone Adis Mcdermott MD Primary Care Provider [phone] Encounter Details Date Type Department Care Team (Late st Contact Info) Description 11/21/2004 Outpatient Historical [facility] Internal Medicine [address] [address] Shaheen Stokes MD [address] [place] [phone] Social History Tobacco Use Types Packs/Day Years Used Date Smoking Tobacco: Never Assessed Comments Unknown Sex and Gender Information Value Date Recorded Sex Assigned at Not on file 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 Gender Identity Not on file Sexual Orientation Not on file documented as of this encounter Last Filed Vital Signs Vital Sign Reading Time Taken Comments Blood Pressure 120/60 11/21/2004 4:45 PM CDT Pulse - - Temperature 37.4 C (99.3 F) 11/21/2004 4:45 PM CDT Respiratory Rate - - Oxygen Saturation - - Inhaled Oxygen Concentration - - Weight 70.3 kg (155 lb) 11/21/2004 4:45 PM CDT Height - - Body Mass Index - - documented in this encounter Plan of Treatment Not on file documented as of this encounter Visit Diagnoses Not on filedocumented in this encounter Care Teams Dog Walker Relationship Specialty Start Date End Date Adis Mcdermott MD PCP - General Internal Medicine 07/08/14 documented as of this encounter
--- OUTSIDE RECORDS SUMMARY | 2024-08-18 10:28 | XMS_ITS | Encounter Summary ---
Author Organization [facility] Address [address] [place] [address] Care Team Providers Care Manufacturing Leader Name Role Phone Adis Mcdermott MD Primary Care Provider [phone] Reason for Visit * Reason Onset Date Comments red flag 10/23/2022 Encounter Details Date Type Department Care Team (Late st Contact Info) Description 10/23/2022 Telephone [facility] Primary Care [address] [place] [address] Adis Mcdermott MD [address] [facility] [address] [place] [address] red flag Social History Tobacco Use Types Packs/Day Years Used Date Smoking Tobacco: Never Smokeless Tobacco: Never Alcohol Use Standard Drinks/Week Comments Yes 0 (1 standard drink = 0.6 oz pur e alcohol) Social Comments No Sex and Gender Information Value Date Recorded Sex Assigned at Not on file 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 She is not experiencing any other symptoms at this time-no numbness, back pain, blurry vision, nor sweating. Pt is asking what should she do or take? * Telephone Encounter - Chelsey Ly - 10/23/2022 10:41 AM CDT The caller has been advised they will be transferred to a clinical coworker as they have presented the following information that may require further consultation or possible emergency action. Caller: Judy Isbell Reason for Triage: Chest Pain, heavy chest, chest discomfort patient stated a few days Call back number: [phone] (home) [phone] (work) Home Phone Work Phone documented in this encounter Plan of Treatment Not on file documented as of this encounter Visit Diagnoses Not on filedocumented in this encounter Care Teams Manufacturing Leader Relationship Specialty Start Date End Date Adis Mcdermott MD PCP - General Internal Medicine 07/08/14 documented as of this encounter
--- OUTSIDE RECORDS SUMMARY | 2024-08-18 10:28 | XMS_ITS | Encounter Summary ---
Author Organization [employer] Address 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
--- OUTSIDE RECORDS SUMMARY | 2024-08-18 10:28 | XMS_ITS | Encounter Summary ---
Author Organization [facility] Address [address] [place] [address] Care Team Providers Care Molded Goods Operator Name Role Phone Adis Mcdermott MD Primary Care Provider [phone] Encounter Details Date Type Department Care Team (Late st Contact Info) Description 12/05/2004 Outpatient Historical [facility] Internal Medicine [address] [address] Adis Mcdermott MD [address] [place] [phone] Social History Tobacco Use Types Packs/Day Years Used Date Smoking Tobacco: Never Assessed Comments Unknown Sex and Gender Information Value Date Recorded Sex Assigned at Not on file 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 Gender Identity Not on file Sexual Orientation Not on file documented as of this encounter Last Filed Vital Signs Vital Sign Reading Time Taken Comments Blood Pressure 130/70 12/05/2004 4:15 PM CDT Pulse - - Temperature - - Respiratory Rate - - Oxygen Saturation - - Inhaled Oxygen Concentration - - Weight 71.7 kg (158 lb) 12/05/2004 4:15 PM CDT Height - - Body Mass Index - - documented in this encounter Plan of Treatment Not on file documented as of this encounter Visit Diagnoses Not on filedocumented in this encounter Care Teams Molded Goods Operator Relationship Specialty Start Date End Date Adis Mcdermott MD PCP - General Internal Medicine 07/08/14 documented as of this encounter
--- OUTSIDE RECORDS SUMMARY | 2024-08-18 10:28 | XMS_ITS | Encounter Summary ---
Author Organization [employer] Address 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
[2024-09-08 12:27] VITALS: BMI 27.8
--- NOTE | 2024-09-08 12:27 | WPDHOMESLEEP ---
Sleep Study - Home Unattended Date of Study: 08/18/24 Ordering Provider: Andres Campos APRN Interpreting Provider: Lashell Wright, DO Home Sleep Study Type: Watch PAT Height: 1.73 m Weight: 83.007 kg Body Mass Index: 27.8 Neck Circumference (inches): 14.5 [place]: 3 Reason for Sleep Study Daytime hypersomnia Sleep History The patient had a sleep study ordered by the pulmonary group for evaluation of sleep apnea. The patient admits to excessive daytime sleepiness. She denies snoring loudly. She denies interruptions in breathing while asleep. She denies choking or gasping at night. She denies having trouble breathing on her back. She denies morning headaches. She denies having a dry or sore mouth /throat in the. She denies nocturnal heartburn. She urinates twice throughout the night. She does have difficulty asleep. She denies having difficulty staying asleep throughout the night. She denies having difficulty if she wakes up throughout the night. She denies hypnotic or sedative use. She denies feeling anxious about sleep. She does feel tired or sleepy during the day. She does feel tired in the morning. She denies having the urge to fall asleep during the day. She denies feeling drowsy while driving. She denies sleep paralysis, cataplexy and hypnagogic/ hypnopompic hallucinations. She denies clenching or grinding her teeth. She denies kicking or jerking her legs excessively. She denies having a restless feeling in her legs She goes to bed at 9:30 p.m. on work days and at 10:00 p.m. on her days. It takes her 30 minutes to fall asleep. She gets 8 hours of sleep on work days and 9 hours on her days. Her sleep is somewhat restorative on days off. She does take planned naps during the day that are 1-2 hours long. The naps are restorative. The patient denies dream enactment behavior. She denies sleep walking. She denies consuming any caffeinated beverages throughout the day. She denies tobacco use. She consumes 1 alcoholic beverage 1-2 nights per week. She exercises 5-7 nights per week. [facility] Past Medical History Medical History Right hand dominant Deviated septum repaired Thyroid disease Depression Nausea and vomiting RUQ abdominal pain GERD (gastroesophageal reflux disease) Anxiety Surgical History Surgical History Delivery by section (05/24/14) primary c/s placenta previa History of tonsillectomy No pertinent past surgical history Family History Family History Grandparent Hypertension maternal grandmother Acute myocardial infarction, Onset Age: 40 maternal grandfather Social History Social History Smoking status: Never smoker Alcohol intake: current Alcohol use details: socially Substance use: never Substance use type: does not use Living arrangements: other Additional living arrangements comments: Occupation/Education: 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 Gender identity (if verbalized by the patient): Female Sexual Orientation (if Verbalized by the Patient): Straight or Heterosexual Medications Home Medications ?Medication ?Instructions ?Recorded ?Confirmed ?Type alprazolam 0.5 mg tablet 0.5 mg PO 09/03/23 07/28/24 History sertraline 25 mg tablet 25 mg PO 09/03/23 07/28/24 History testosterone cypionate 200 mg/mL 200 mg IM ONCE 07/28/24 07/28/24 History intramuscular oil Sleep Procedure The sleep study was completed using [employer]™ Interactive[employer] a technically adequate device with seven channels: peripheral arterial tone, actigraphy, body position, snore, respiratory movement, pulse oximetry, sleep staging, and heart rate. Prior to using the device, the patient received verbal and written instructions for its application and was provided with the help desk phone number for additional telephonic instruction with 24-hour availability of qualified personnel to answer questions. The study was scored using CMS guidelines. Sleep Architecture The total recording time is 8 hrs, 23 min. The total sleep time is 7 hrs, 4 min. Sleep latency is 20 minutes. REM latency is 100 minutes. The patient had 12 episodes of waking. Sleep architecture shows 20.6% deep sleep, 55.4% light sleep, and (as % Total Sleep Time) showed NREM (Light 55.4%; Deep 20.6%), and a 24.0% stage REM. The patient spent 62.7% of total sleep time in the supine position. Sleep efficiency was 84.29. Respiratory Analysis The overall AHI (pAHI 4%:) is 0.6. The overall AHI (pAHI 3%:) is 2.0. The central AHI is 0.1. The AHI was 2.1 in NREM and 1.8 in REM sleep. The AHI was 2.9 in Supine and 0.4 in Non-supine sleep. Percent of Liang Hammonds respirations is 0.0. Oximetry Data The oxygen desaturation index (ROJELIO 4%:) is 0.7. The mean saturation is 96%, and the lowest saturation is 81%. Time spent with saturation < 88% is 0.0 minutes. Snoring Profile Snoring average intensity is 40 dB. The patient snored above 45 decibels for 11.5 minutes, 2.7% of sleep time. Cardiac Profile The average pulse rate is 58 beats per minutes. The lowest pulse rate is 47 bpm. The highest pulse rate reported is 103 bpm. Atrial fibrillation was not detected. Premature beats occur 0.3 per minute. Assessment and Plan Assessment and Plan (1) Sleep disturbances: Code(s): G47.9 - Sleep disorder, unspecified Status: Acute Assessment and Plan: The patient had an overall AHI of 0.6 with desaturation down to 81%. This is not consistent with sleep disordered breathing. If there are further concerns for a sleep disorder, I recommend that the patient have a split study with the use of a hypnotic to ensure we obtain enough sleep data. Data The data obtained during this sleep study is adequate for interpretation. Certification This sleep study has been reviewed by a board certified sleep medicine physician.
== END 2024-08-19 11:11 | disposition home or self-care (01) ==
LOC: ANHCSM 09:28
PROVIDERS: Visit Provider Nurse Practitioner Family
DX: E34.9 Endocrine disorder, unspecified (principal); G47.00 Insomnia, unspecified; R06.83 Snoring; G47.9 Sleep disorder, unspecified
CPT/HCPCS: 95800

== ENCOUNTER 2024-12-29 10:49 | Outpatient (CLI) | payer BC, SELFPAY ==
--- NOTE | ~2024-12-29 | US_ITS ---
US thyroid INDICATION: Thyroid nodule TECHNIQUE: Real-time sonographic images of the thyroid gland were obtained. COMPARISON: Ultrasound dated 01/28/2024 FINDINGS: The right thyroid lobe measures 4 x 1.7 x 1.7 cm. The left thyroid lobe measures 4.4 x 1.8 x 1.6 cm. There is normal echotexture and echogenicity throughout the thyroid gland. There is a 3 mm cystic mass of the right thyroid lobe. There is a 5 mm cyst of the left thyroid lobe. No suspicious masses are identified which meet sonographic criteria for biopsy. Normal vascular flow is present. IMPRESSION: 1. Small bilateral thyroid nodules which have a benign appearance. No masses are identified which meet sonographic criteria for biopsy.. Reviewed, dictated and finalized at location O. IMPRESSION: 1. Small bilateral thyroid nodules which have a benign appearance. No masses a re identified which meet sonographic criteria for biopsy..
== END 2024-12-29 10:50 | disposition home or self-care (01) ==
PROVIDERS: PCP Internal Medicine; Visit Provider Internal Medicine Endocrinology, Diabetes & Metabolism
DX: E04.2 Nontoxic multinodular goiter (principal)
CPT/HCPCS: 76536